=== PATIENT | female | born 1945 | race Caucasian/White ===

== ENCOUNTER 2016-12-12 10:48 | Outpatient (CLI) | payer MEDICARE, OTHER ==
[~2016-12-12] VITALS: Ht 162.6 cm; Wt 63.5 kg
[~2016-12-12 10:48] MED LIST: CALC-656 PO; CALC-9 PO; CEPH500T PO; CIPR500T78 PO; CYCL10TA9 PO; HYDR-34 PO; Hydrocodone Bit/Acetaminophen PO; LETR2.5T5 PO; NAPR250T PO
--- OUTSIDE RECORDS SUMMARY | 2016-12-12 10:54 | XMS REPORT | Continuity of Care Document ---
Author Author [facility] Organization [facility] Address Unknown Phone Unavailable Care Team Providers Care Formulation Scientist Name Role Phone CHRISTY CEBALLOS MD PCP Insurance Providers Payer Name Policy Number Subscriber Name Relationship Wps Medicare [id number] Viridiana Singh 18 Self / Same As Patient Advance Directives Directive Response Recorded Date/Time Advance Directives No 01/15/14 10:10am Health Care Power of Credit Union Teller No 01/15/14 10:10am Organ Donor Yes 01/15/14 [...] Encounters Encounter Location Date/Time Discharged Recurring Via [facility] 09/29/14 12:32pm
[2016-12-12 11:09] VITALS: BP 147/83
[2016-12-12] MEDS ORDERED: DONE5TAB30 PO (11:14)
[2016-12-12] MEDS ORDERED: MELO7.5T46 PO (11:14)
[2016-12-12 12:06] LABS: BASOPHILS % (AUTO) 0 % (0-10); EOSINOPHILS # (AUTO) 0.1 10^3/uL (0.0-0.3); EOSINOPHILS % (AUTO) 1 % (0-10); LYMPHOCYTES # (AUTO) 1.9 X 10^3 (1.0-4.0); LYMPHOCYTES % (AUTO) 31 % (12-44); MEAN CORPUSCULAR HEMOGLOBIN 30 PG (25-34); MEAN CORPUSCULAR HGB CONC 34 G/DL (32-36); MEAN CORPUSCULAR VOLUME 89 FL (80-99); MEAN PLATELET VOLUME 10.5 FL (7.4-10.4); MONOCYTES # (AUTO) 0.7 X 10^3 (0.0-1.0); MONOCYTES % (AUTO) 11 % (0-12); NEUTROPHILS # (AUTO) 3.4 X 10^3 (1.8-7.8); NEUTROPHILS % (AUTO) 56 % (42-75); PLATELET COUNT 243 10^3/uL (130-400); RED BLOOD COUNT 4.58 10^6/uL (4.35-5.85); RED CELL DISTRIBUTION WIDTH 13.3 % (10.0-14.5); WHITE BLOOD COUNT 6.1 10^3/uL (4.3-11.0)
[2016-12-12 12:18] LABS: ANION GAP 11 MMOL/L (5-14); BLOOD UREA NITROGEN 11 MG/DL (7-18); BUN/CREATININE RATIO 13; CARBON DIOXIDE 23 MMOL/L (21-32); CHLORIDE 107 MMOL/L (98-107); CREATININE SERUM 0.83 MG/DL (0.60-1.30); GFR ESTIMATED > 60; GLUCOSE 106 MG/DL (70-105); POTASSIUM 3.7 MMOL/L (3.6-5.0); SODIUM 141 MMOL/L (135-145)
--- NOTE | 2016-12-12 12:21 | Diagnostic Imaging Report ---
EXAMINATION: PA and lateral views of the chest. INDICATION: Preoperative evaluation. FINDINGS: The lungs are hyperinflated but clear. The heart size is normal. No effusion or pneumothorax. The mediastinum and yovanny appear unremarkable. Surgical clips in the upper right abdomen seen. There is a mid thoracic spine compression fracture which appears old. IMPRESSION: Hyperinflated clear lungs. Dictated by: Dictated on workstation # [id number]
== END 2016-12-12 11:40 | disposition home or self-care (01) ==
LOC: PREOP 10:48
PROVIDERS: ATTEND Otolaryngology Otolaryngology/Facial Plastic Surgery
DX: Z01.818 Encounter for other preprocedural examination (principal); Z01.812 Encounter for preprocedural laboratory examination; Z11.2 Encounter for screening for other bacterial diseases; E04.1 Nontoxic single thyroid nodule
CPT/HCPCS: 36415; 71020; 80048; 85025; 87081; 93005

== ENCOUNTER 2016-12-15 06:21 | Day surgery (SDC) | payer MEDICARE, OTHER ==
[~2016-12-15] VITALS: Ht 162.6 cm; Wt 63.5 kg
[~2016-12-15 06:21] MED LIST changes: +DONE5TAB30 PO; +MELO7.5T46 PO
--- OUTSIDE RECORDS SUMMARY | 2016-12-15 06:24 | XMS REPORT | Continuity of Care Document ---
Author Author [facility] Organization [facility] Address Unknown Phone Unavailable Care Team Providers Care Hoop Cutter Name Role Phone CHRISTY CEBALLOS MD PCP Insurance Providers Payer Name Policy Number Subscriber Name Relationship Wps Medicare [id number] Viridiana Singh 18 Self / Same As Patient Advance Directives Directive Response Recorded Date/Time Advance Directives No 01/15/14 10:10am Health Care Power of Tableau Administrator No 01/15/14 10:10am Organ Donor Yes 01/15/14 [...] Encounters Encounter Location Date/Time Discharged Recurring [facility] 09/29/14 12:32pm
--- OUTSIDE RECORDS SUMMARY | 2016-12-15 06:24 | XMS REPORT | Continuity of Care Document ---
Author Author [facility] Organization [facility] Address Unknown Phone Unavailable Care Team Providers Care Equipment Service Lead Name Role Phone CHRISTY CEBALLOS MD PCP Insurance Providers Payer Name Policy Number Subscriber Name Relationship Wps Medicare [id number] Viridiana Singh 18 Self / Same As Patient Advance Directives Directive Response Recorded Date/Time Advance Directives No 01/15/14 10:10am Health Care Power of [place] B[place] No 01/15/14 10:10am Organ Donor Yes 01/15/14 [...] Encounters Encounter Location Date/Time Discharged Recurring Via [facility] 09/29/14 12:32pm
[2016-12-15] MEDS ORDERED: CALC-140 PO (06:50)
[2016-12-15] MEDS ORDERED: LIDOCAINE PF 2% 10 ML (XYLOCAINE) AMP ONE (06:53)
[2016-12-15] MEDS ORDERED: fentaNYL INJECTION 100 MCG/2 ML AMP ONE ×2 (06:53→09:49)
[2016-12-15] MEDS ORDERED: LACTATED RINGERS 1,000 ML IV ONE ×2 (06:53→08:48)
[2016-12-15] MEDS ORDERED: LIDOCAINE JELLY 2% (XYLOCAINE) 5 ML TUBE ONE (06:53)
[2016-12-15] MEDS ORDERED: ONDANSETRON 4 MG/2 ML (SDV) Z0FRAN ONE (06:53)
[2016-12-15] MEDS ORDERED: proPOfol 200 MG/20 ML (DIPRIVAN) VIAL IV ONE (06:53)
[2016-12-15] MEDS ORDERED: ROCURONIUM 50 MG/5 ML (ZEMURON) VIAL IV ONE (06:53)
--- NOTE | 2016-12-15 06:53 | Progress Note-Pre Operative ---
Pre-Operative Progress Note H&P Reviewed The H&P was reviewed, patient examined and no changes noted. Date H&P Reviewed: Dec 15, 2016 Time H&P Reviewed: 06:45 Pre-Operative Diagnosis: Multinodular Goiter LORETTA BOOKER MD Dec 15, 2016 6:53 am
[2016-12-15] MEDS ORDERED: MIDAZOLAM 2 MG/2 ML (VERSED) VIAL ONE (06:54)
[2016-12-15] MEDS ORDERED: LIDOCAINE/EPI 1%-1:100,000 (XYLOCAINE) 20ML ONE (06:55)
[2016-12-15] MEDS ORDERED: MUPIROCIN 2% OINT 22 GM (BACTROBAN) TUBE ONE (06:55)
[2016-12-15 07:01] VITALS: BP 138/91
[2016-12-15] MEDS: LACTATED RINGERS 1,000 ML IV PRN ×2 (07:14→08:37)
[2016-12-15] MEDS ORDERED: ISOFLURANE (FORANE) 15 ML/15 MIN INHALATION ONE ×3 (07:35→09:54)
--- NOTE | 2016-12-15 09:46 | Progress Note-Post Operative ---
Post-Operative Progess Note Pre-Operative Diagnosis MULTINODULAR GOITER Post-Operative Diagnosis same Post-Op Procedure Note Date of Procedure: Dec 15, 2016 Name of Procedure: Total Thyroidectomy Anesthesia Type get Estimated blood loss (mL): 25cc Packin number 7 SARI DRain Specimen(s) collected Thyroid gland LORETTA BOOKER MD Dec 15, 2016 9:46 am
[2016-12-15] MEDS ORDERED: HYDROmorphone (DILAUDID) 2 MG/ML VIAL ONE (09:49)
[2016-12-15] MEDS ORDERED: ACETAMINOPHEN 500 MG TAB (TYLENOL) PO PRN (10:00)
[2016-12-15] MEDS ORDERED: MEPERIDINE (DEMEROL) INJ 50 MG/ML IM PRN (10:00)
[2016-12-15] MEDS ORDERED: MEPERIDINE (DEMEROL) INJ 50 MG/ML IVP PRN (10:00)
[2016-12-15] MEDS ORDERED: ONDANSETRON 4 MG/2 ML (SDV) Z0FRAN IVP PRN (10:00)
[2016-12-15] MEDS: fentaNYL INJECTION 100 MCG/2 ML AMP IVP PRN ×2 (10:50→11:00)
[2016-12-15 11:40] VITALS: BP 151/85
[2016-12-15] MEDS: ONDANSETRON 4 MG/2 ML (SDV) Z0FRAN IV PRN (13:07)
[2016-12-15] MEDS: D5 1/2 NS W/KCL 20 MEQ/L 1,000 ML IV SCH (13:08)
[2016-12-15] MEDS: HYDROcodone/APAP 5 MG/325 MG (LORTAB) TAB PO PRN ×2 (13:08→20:50)
[2016-12-15 16:00] VITALS: BP 132/90
--- NOTE | 2016-12-15 16:54 | Progress Note-Standard ---
Standard Progress Note Progress Notes/Assess & Plan Progress/Assessment & Plan ENT-Kermit Doing well INitially had 125cc out drain in RR since that time has had only 20 MInimal pain-Incision dry intact and flat. tj diet voice normal ca-8.5 pverall doing very well post total thyroiectomy plan on home tomorrow as long as driange stay low and calcium r emains stable Final Diagnosis multipnodular goiter LORETTA BOOKER MD Dec 15, 2016 4:54 pm
[2016-12-15 20:00] VITALS: BP 119/67
[2016-12-16 00:44] VITALS: BP 114/60
[2016-12-16] MEDS: D5 1/2 NS W/KCL 20 MEQ/L 1,000 ML IV SCH (02:30)
[2016-12-16 03:47] VITALS: BP 111/68
[2016-12-16] MEDS: HYDROcodone/APAP 5 MG/325 MG (LORTAB) TAB PO PRN (03:47)
[2016-12-16] MEDS ORDERED: LEVOTHYROXINE 88 MCG (LEVOTHORID) TAB PO SCH (06:30)
--- NOTE | 2016-12-16 06:51 | Progress Note-Standard ---
Standard Progress Note Progress Notes/Assess & Plan Progress/Assessment & Plan ENT-Kermit Doing well INitially had 125cc out drain in RR since that time has had only 20 MInimal pain-Incision dry intact and flat. tj diet voice normal ca-8.5 pverall doing very well post total thyroiectomy plan on home tomorrow as long as driange stay low and calcium r emains stable ENT-Kermit-12/16 Doing well MInimal drainage from drain-drain d/c'ed Incision flat and intact cAlcium-8.2 Will discharge on levothryoixine Will call with final path report-rtc 1 week for suture removal LORETTA BOOKER MD Dec 16, 2016 6:51 am
[2016-12-16] MEDS: ONDANSETRON 4 MG/2 ML (SDV) Z0FRAN IV PRN (07:29)
[2016-12-16 08:00] VITALS: BP 127/70
[2016-12-16] MEDS ORDERED: CALCIUM CARB + VIT D 600 MG (CALCARB + D) TAB PO SCH (08:00)
[2016-12-16] MEDS ORDERED: HYDR-3812 PO (08:37)
[2016-12-16] MEDS ORDERED: LEVO88TA54 PO (08:37)
[2016-12-16] MEDS ORDERED: DONEPEZIL 5 MG (ARICEPT) TAB PO SCH (09:00)
[2016-12-16] MEDS ORDERED: NON-FORMULARY MEDICATION 1 EA EA (Calcium Carbonate/Vitamin D3 (Calcium + Vitamin D Tablet PO SCH (09:00)
[2016-12-16] MEDS ORDERED: LETROZOLE 2.5 MG (FEMARA) TAB PO SCH (09:00)
[2016-12-16] MEDS ORDERED: FLU TRIvalent (5 YOA+) 2016-17 (AFLURIA) 0.5 ML IM ONE ×2 (10:30→11:15)
== END 2016-12-16 10:55 | disposition home or self-care (01) ==
LOC: SDC 06:21 → 4TH 12:10 → SDC 12-16 10:55
PROVIDERS: ATTEND Otolaryngology Otolaryngology/Facial Plastic Surgery
DX: E04.2 Nontoxic multinodular goiter (principal)
CPT/HCPCS: 36415; 82310; 88307

== ENCOUNTER 2016-12-22 12:47 | Outpatient (RCR) | payer MEDICARE, OTHER ==
--- OUTSIDE RECORDS SUMMARY | 2016-10-06 14:46 | XMS REPORT | Continuity of Care Document ---
Author Author [facility] Organization [facility] Address Unknown Phone Unavailable Care Team Providers Care Jewel Sawyer Name Role Phone CHRISTY CEBALLOS MD PCP Insurance Providers Payer Name Policy Number Subscriber Name Relationship Wps Medicare [id number] Viridiana Singh 18 Self / Same As Patient Advance Directives Directive Response Recorded Date/Time Advance Directives No 01/15/14 10:10am Health Care Power of Airport Attendant No 01/15/14 10:10am Organ Donor Yes 01/15/14 10:10am Problems Medical Problems Problem Onset Date Status Abdominal pain Unknown Active Urinary tract infectious disease Unknown Active Medications Medication Dose Route Sig Days/Qty Instructions Order Date Discontinued Date Status Cyclobenzaprine HCl (Flexeril) 1 Each PO Q8HR PRN 20 Qty 03/12/1013/08 Discontinued Acetaminophen/Hydrocodone Bitart 1 Ea PO Q 4 - 6 HR PRN 14 Qty 05/13/10 Discontinued Letrozole 2.5 Mg PO BEDTIME 11/21/13 Active Calcium Carbonate/Vitamin D3 1 Each PO 11/21/13 11/28/13 Discontinued Naproxen 250 Mg PO 11/21/13 11/28/13 Discontinued Ciprofloxacin HCl 500 Mg PO TWICE A DAY 14 Qty 11/22/13 11/28/13 Discontinued Calcium Carbonate/Vitamin D3 1 Tab PO TWICE A DAY 01/15/14 Active [Hydrocodone Bit/Acetaminophen] 1 Tab PO GIVE EVERY 4 HRS ON SCHEDULE PRN PAIN 60 Qty 01/23/14 Active Social History Social History Problem Response Recorded Date/Time Alcohol Use Denies Use 01/20/2014 6:59am Recreational Drug Use No 01/20/2014 6:59am Recent Foreign Travel No 01/20/2014 6:59am Recent Infectious Disease Exposure No 01/20/2014 6:59am Hospitalization with Isolation Denies 01/23/2014 2:16pm Sexually Transmitted Disease No 01/20/2014 6:59am Hospital Discharge Instructions No hospital discharge instructions. Plan of Care No plan of care. Functional Status No functional status results. Allergies, Adverse Reactions, Alerts Allergen Type Severity Reaction Status Last Updated morphine Adverse Reaction Unknown HALLUCINATIONS Active 01/17/14 Immunizations Name Given Type Tetanus Booster (TDap) Unknown Historical Vital Signs No known vital signs results. Results Laboratory Results Test Name Result Units Flags Reference Collection Date/Time Result Date/ Time Comments White Blood Count 4.9 10^3/uL 4.3-11.0 09/29/2014 12:58pm 09/29/2014 1: 07pm Red Blood Count 4.34 10^6/uL L 4.35-5.85 09/29/2014 12:58pm 09/29/2014 1: 07pm Hemoglobin 13.4 G/DL 11.5-16.0 09/29/2014 12:58pm 09/29/2014 1:07pm Hematocrit 39 % 35-52 09/29/2014 12:58pm 09/29/2014 1:07pm Mean Corpuscular Volume 91 FL 80-99 09/29/2014 12:58pm 09/29/2014 1: 07pm Mean Corpuscular Hemoglobin 31 PG 25-34 09/29/2014 12:58pm 09/29/2014 1 :07pm Mean Corpuscular Hemoglobin Concent 34 G/DL 32-36 09/29/2014 12:58pm 1:07pm Red Cell Distribution Width 12.6 % 10.0-14.5 09/29/2014 12:58pm 2013 1:07pm Platelet Count 283 10^3/uL 130-400 09/29/2014 12:58pm 09/29/2014 1: 07pm Mean Platelet Volume 9.5 FL 7.4-10.4 09/29/2014 12:58pm 09/29/2014 1: 07pm Neutrophils (%) (Auto) 56 % 42-75 09/29/2014 12:58pm 09/29/2014 1:07pm Lymphocytes (%) (Auto) 32 % 12-44 09/29/2014 12:58pm 09/29/2014 1:07pm Monocytes (%) (Auto) 10 % 0-12 09/29/2014 12:58pm 09/29/2014 1:07pm Eosinophils (%) (Auto) 2 % 0-10 09/29/2014 12:58pm 09/29/2014 1:07pm Basophils (%) (Auto) 0 % 0-10 09/29/2014 12:58pm 09/29/2014 1:07pm Neutrophils # (Auto) 2.8 X 10^3 1.8-7.8 09/29/2014 12:58pm 09/29/2014 1 :07pm Lymphocytes # (Auto) 1.6 X 10^3 1.0-4.0 09/29/2014 12:58pm 09/29/2014 1 :07pm Monocytes # (Auto) 0.5 X 10^3 0.0-1.0 09/29/2014 12:58pm 09/29/2014 1: 07pm Eosinophils # (Auto) 0.1 10^3/uL 0.0-0.3 09/29/2014 12:58pm 09/29/2014 1:07pm Basophils # (Auto) 0.0 10^3/uL 0.0-0.1 09/29/2014 12:58pm 09/29/2014 1: 07pm Sodium Level 140 MMOL/L 135-145 09/29/2014 12:58pm 09/29/2014 1:39pm Potassium Level 4.0 MMOL/L 3.6-5.0 09/29/2014 12:58pm 09/29/2014 1: 39pm Chloride Level 106 MMOL/L 98-107 09/29/2014 12:58pm 09/29/2014 1:39pm Carbon Dioxide Level 24 MMOL/L 21-32 09/29/2014 12:58pm 09/29/2014 1: 39pm Blood Urea Nitrogen 11 MG/DL 7-18 09/29/2014 12:58pm 09/29/2014 1:39pm Creatinine 0.72 MG/DL 0.60-1.30 09/29/2014 12:58pm 09/29/2014 1:39pm BUN/Creatinine Ratio 15 09/29/2014 12:58pm 09/29/2014 1:39pm Estimat Glomerular Filtration Rate > 60 09/29/2014 12:58pm 2013 1:39pm GFR INTERPRETIVE DATA UNITS FOR ESTIMATED GFR (eGFR): mL/min/1.73 M2 REFERENCE RANGE FOR ESTIMATED GFR (eGFR) eGFR NORMAL eGFR >60 MODERATELY DECREASED eGFR 30-59 SEVERLY DECREASED eGFR 15-29 KIDNEY FAILURE <15 (OR DIALYSIS) Glucose Level 119 MG/DL H 70-105 09/29/2014 12:58pm 09/29/2014 1:39pm Calcium Level 9.1 MG/DL 8.5-10.1 09/29/2014 12:58pm 09/29/2014 1:39pm Total Bilirubin 0.3 MG/DL 0.1-1.0 09/29/2014 12:58pm 09/29/2014 1:39pm Alkaline Phosphatase 85 U/L 40-136 09/29/2014 12:58pm 09/29/2014 1: 39pm Aspartate Amino Transf (AST/SGOT) 18 U/L 5-34 09/29/2014 12:58pm 2013 1:39pm Alanine Aminotransferase (ALT/SGPT) 12 U/L 0-55 09/29/2014 12:58pm 1:39pm Lactate Dehydrogenase 158 U/L 125-220 09/29/2014 12:58pm 09/29/2014 1: 39pm Total Protein 7.4 G/DL 6.4-8.2 09/29/2014 12:58pm 09/29/2014 1:39pm Albumin 4.0 G/DL 3.2-4.5 09/29/2014 12:58pm 09/29/2014 1:39pm Procedures No known history of procedures. Encounters Encounter Location Date/Time Discharged Recurring Via [facility] 09/29/14 12:32pm
[2016-10-06 15:04] LABS: BASOPHILS % (AUTO) 0 % (0-10); EOSINOPHILS # (AUTO) 0.1 10^3/uL (0.0-0.3); EOSINOPHILS % (AUTO) 2 % (0-10); LYMPHOCYTES # (AUTO) 2.7 X 10^3 (1.0-4.0); LYMPHOCYTES % (AUTO) 40 % (12-44); MEAN CORPUSCULAR HEMOGLOBIN 30 PG (25-34); MEAN CORPUSCULAR HGB CONC 34 G/DL (32-36); MEAN CORPUSCULAR VOLUME 90 FL (80-99); MEAN PLATELET VOLUME 10.4 FL (7.4-10.4); MONOCYTES # (AUTO) 0.7 X 10^3 (0.0-1.0); MONOCYTES % (AUTO) 11 % (0-12); NEUTROPHILS # (AUTO) 3.3 X 10^3 (1.8-7.8); NEUTROPHILS % (AUTO) 48 % (42-75); PLATELET COUNT 215 10^3/uL (130-400); RED BLOOD COUNT 4.76 10^6/uL (4.35-5.85); RED CELL DISTRIBUTION WIDTH 13.3 % (10.0-14.5); WHITE BLOOD COUNT 6.9 10^3/uL (4.3-11.0)
[2016-10-06 15:24] LABS: ALANINE AMINOTRANSFERASE 21 U/L (0-55); ANION GAP 7 MMOL/L (5-14); ASPARTATE AMINO TRANSFERASE 25 U/L (5-34); BILIRUBIN,TOTAL 0.4 MG/DL (0.1-1.0); BLOOD UREA NITROGEN 10 MG/DL (7-18); BUN/CREATININE RATIO 13; CALCIUM 8.9 MG/DL (8.5-10.1); CARBON DIOXIDE 27 MMOL/L (21-32); CHLORIDE 107 MMOL/L (98-107); GFR ESTIMATED > 60; GLUCOSE 84 MG/DL (70-105); SODIUM 141 MMOL/L (135-145)
[~2016-12-22 12:47] MED LIST changes: +CALC-140 PO; +HYDR-3812 PO; +LEVO88TA54 PO
[2016-12-22 13:13] LABS: BASOPHILS % (AUTO) 0 % (0-10); EOSINOPHILS # (AUTO) 0.1 10^3/uL (0.0-0.3); EOSINOPHILS % (AUTO) 1 % (0-10); LYMPHOCYTES # (AUTO) 2.3 X 10^3 (1.0-4.0); LYMPHOCYTES % (AUTO) 27 % (12-44); MEAN CORPUSCULAR HEMOGLOBIN 30 PG (25-34); MEAN CORPUSCULAR HGB CONC 34 G/DL (32-36); MEAN CORPUSCULAR VOLUME 89 FL (80-99); MEAN PLATELET VOLUME 9.2 FL (7.4-10.4); MONOCYTES % (AUTO) 12 % (0-12); NEUTROPHILS % (AUTO) 59 % (42-75); PLATELET COUNT 306 10^3/uL (130-400); RED BLOOD COUNT 4.44 10^6/uL (4.35-5.85); RED CELL DISTRIBUTION WIDTH 13.5 % (10.0-14.5); WHITE BLOOD COUNT 8.4 10^3/uL (4.3-11.0)
[2016-12-22 14:05] LABS: ALANINE AMINOTRANSFERASE 18 U/L (0-55); ALBUMIN 3.8 G/DL (3.2-4.5); ANION GAP 10 MMOL/L (5-14); ASPARTATE AMINO TRANSFERASE 19 U/L (5-34); BILIRUBIN,TOTAL 0.4 MG/DL (0.1-1.0); BLOOD UREA NITROGEN 9 MG/DL (7-18); BUN/CREATININE RATIO 11; CALCIUM 8.6 MG/DL (8.5-10.1); CARBON DIOXIDE 26 MMOL/L (21-32); CHLORIDE 105 MMOL/L (98-107); CREATININE SERUM 0.84 MG/DL (0.60-1.30); GFR ESTIMATED > 60; GLUCOSE 84 MG/DL (70-105); POTASSIUM 3.9 MMOL/L (3.6-5.0); SODIUM 141 MMOL/L (135-145)
== END 2017-01-04 | disposition home or self-care (01) ==
LOC: ONC 12:47
PROVIDERS: ATTEND Internal Medicine Hematology & Oncology
DX: C50.212 Malignant neoplasm of upper-inner quadrant of left female breast (principal); E04.1 Nontoxic single thyroid nodule; M16.0 Bilateral primary osteoarthritis of hip; R41.3 Other amnesia; Z79.811 Long term (current) use of aromatase inhibitors; Z79.899 Other long term (current) drug therapy
CPT/HCPCS: 36415; 80053; 84439; 84443; 85025; 86300; 99213

== ENCOUNTER 2017-08-07 11:19 | Emergency (ER) | payer MEDICARE ==
[~2017-08-07] VITALS: Ht 162.6 cm; Wt 69.9 kg
--- NOTE | 2017-08-07 11:26 | ED GI ---
General Chief Complaint: Abdominal/GI Problems Stated Complaint: ABD PAIN Source of Information: Patient Exam Limitations: No Limitations History of Present Illness Time Seen By Provider: 11:24 Initial Comments To ER by daughter with c/o sudden onset nausea,vomiting, and syncope vs near syncope that began during a bath a home. pt has some dementia and daughter was helping her bathe. Pt states that her stomach hurts but when complains of no pain upon palpation of abdomen. WHen ask to clarify the pain she states she is referring to nausea. No diarrhea. She feels as though she could vomit currently. Timing/Duration: 1/2 Hour Radiation: No Radiation Associated Symptoms: Nausea/Vomiting Allergies and Home Medications Allergies Coded Allergies: morphine (Unverified Adverse Reaction, Unknown, HALLUCINATIONS, 01/17/14) Home Medications Calcium Carbonate/Vitamin D3 1 Each Tablet, 1 TAB PO DAILY, (Reported) Donepezil HCl 5 Mg Tablet, 5 MG PO DAILY, (Reported) Letrozole 2.5 Mg Tablet, 2.5 MG PO DAILY, (Reported) Levothyroxine Sodium 100 Mcg Tablet, (Reported) Meloxicam 7.5 Mg Tablet, (Reported) Review of Systems Constitutional: see HPI, No chills EENTM: No Symptoms Reported Respiratory: No Symptoms Reported Cardiovascular: No Symptoms Reported Gastrointestinal: See HPI, Denies Abdominal Pain, Nausea Genitourinary: No Symptoms Reported Musculoskeletal: no symptoms reported Skin: no symptoms reported Psychiatric/Neurological: No Symptoms Reported Endocrine: No Symptoms Reported Past Yrnwjcw-Nwsdob-Wlvgzf Hx Patient Social History Alcohol Use: Denies Use Recreational Drug Use: No Smoking Status: Never a Smoker Type Used: Cigarettes Former Smoker, Quit: Dec 12, 1980 Recent Foreign Travel: No Contact w/Someone Who Travel: No Recent Hopitalizations: No Immunizations Up To Date Tetanus Booster (TDap): Unknown Seasonal Allergies Seasonal Allergies: No Surgeries Surgeries: Bladder Surgery, Breast, Gallbladder, Hysterectomy, Joint Replacement Reproductive System Hx Reproductive Disorders: No Sexually Transmitted Disease: No INTERNATIONAL SPECIALIST History: Hysterectomy Musculoskeletal Musculoskeletal Disorders: Arthritis HEENT Loss of Vision: Denies Hearing Impairment: Denies Cancer Cancer: Breast Family Medical History Family Medial History: Family history: Arthritis 03 FATHER 03 MOTHER 09 BROTHER 09 SISTER No Family History of: Abdominal aortic aneurysm Alcoholism Cancer Family history: Alzheimer's disease Family history: Asthma Family history: Breast disease Family history: Cardiovascular disease Family history: Diabetes mellitus Family history: Gastrointestinal disease Family history: Hypertension Family history: Thyroid disorder Hereditary disease History of - respiratory disease Kidney disease Myocardial infarction Parkinson's disease Prostate cancer Psychotic disorder Seizure disorder Stroke Physical Exam Vital Signs VS - Last 72 Hours, by Label 08/07/17 08/07/17 08/07/17 11:19 11:52 12:38 Temp 96.7 Pulse 77 62 62 Resp 18 18 18 B/P (MAP) 103/71 130/81 Pulse Ox 94 97 95 O2 Delivery Room Air Room Air Room Air Capillary Refill : General Appearance: WD/WN, no apparent distress HEENT: PERRL/EOMI, normal ENT inspection Neck: non-tender, full range of motion Respiratory: normal breath sounds, no respiratory distress, no accessory muscle use Cardiovascular: regular rate, rhythm, no murmur Gastrointestinal: normal bowel sounds, non tender, soft, No guarding, No rebound, No tenderness Extremities: normal range of motion, non-tender Neurologic/Psychiatric: alert, normal mood/affect, oriented x 3 Skin: normal color, warm/dry Progress/Results/Core Measures Results/Orders Lab Results Laboratory Tests Test 08/07/17 11:23 08/07/17 12:11 Range/Units White Blood Count 7.6 4.3-11.0 10^3/uL Red Blood Count 4.81 4.35-5.85 10^6/uL Hemoglobin 14.6 11.5-16.0 G/DL Hematocrit 44 35-52 % Mean Corpuscular Volume 90 80-99 FL Mean Corpuscular Hemoglobin 30 25-34 PG Mean Corpuscular Hemoglobin Concent 34 32-36 G/DL Red Cell Distribution Width 13.1 10.0-14.5 % Platelet Count 270 130-400 10^3/uL Mean Platelet Volume 10.0 7.4-10.4 FL Neutrophils (%) (Auto) 56 42-75 % Lymphocytes (%) (Auto) 33 12-44 % Monocytes (%) (Auto) 9 0-12 % Eosinophils (%) (Auto) 2 0-10 % Basophils (%) (Auto) 0 0-10 % Neutrophils # (Auto) 4.2 1.8-7.8 X 10^3 Lymphocytes # (Auto) 2.5 1.0-4.0 X 10^3 Monocytes # (Auto) 0.7 0.0-1.0 X 10^3 Eosinophils # (Auto) 0.1 0.0-0.3 10^3/uL Basophils # (Auto) 0.0 0.0-0.1 10^3/uL Sodium Level 142 135-145 MMOL/L Potassium Level 3.6 3.6-5.0 MMOL/L Chloride Level 108 H 98-107 MMOL/L Carbon Dioxide Level 26 21-32 MMOL/L Anion Gap 8 5-14 MMOL/L Blood Urea Nitrogen 10 7-18 MG/DL Creatinine 1.01 0.60-1.30 MG/DL Estimat Glomerular Filtration Rate 54 BUN/Creatinine Ratio 10 Glucose Level 96 70-105 MG/DL Calcium Level 9.2 8.5-10.1 MG/DL Total Bilirubin 0.5 0.1-1.0 MG/DL Aspartate Amino Transf (AST/SGOT) 22 5-34 U/L Alanine Aminotransferase (ALT/SGPT) 20 0-55 U/L Alkaline Phosphatase 77 40-136 U/L Troponin I < 0.30 <0.30 NG/ML Total Protein 8.1 6.4-8.2 GM/DL Albumin 4.2 3.2-4.5 GM/DL Lipase 29 8-78 U/L Urine Color YELLOW Urine Clarity CLEAR Urine pH 5 5-9 Urine Specific [place] 1.015 L 1.016-1.022 Urine Protein 1+ H NEGATIVE Urine Glucose (UA) NEGATIVE NEGATIVE Urine Ketones NEGATIVE NEGATIVE Urine Nitrite NEGATIVE NEGATIVE Urine Bilirubin NEGATIVE NEGATIVE Urine Urobilinogen NORMAL NORMAL MG/DL Urine Leukocyte Esterase NEGATIVE NEGATIVE Urine RBC (Auto) NEGATIVE NEGATIVE Urine RBC NONE /HPF Urine WBC NONE /HPF Urine Crystals NONE /LPF Urine Bacteria NEGATIVE /HPF Urine Casts PRESENT /LPF Urine Hyaline Casts >50 H /LPF Urine Mucus NEGATIVE /LPF Urine Culture Indicated NO My Orders Orders - DELL MARIANO APRN Saline Lock/Iv-Start (08/07/17 11:23) Lactated Ringers (Lr 1000 Ml Iv Solution (08/07/17 11:30) Ondansetron Injection (Zofran Injectio (08/07/17 11:30) Cbc With Automated Diff (08/07/17 11:23) Comprehensive Metabolic Panel (08/07/17 11:23) Lipase (08/07/17 11:23) Ua Culture If Indicated (08/07/17 11:23) Ekg Tracing (08/07/17 11:30) Troponin I (08/07/17 11:30) Medications Given in ED Current Medications Medications Dose Ordered Sig/Mimi Route Start Time Stop Time Status Last Admin Dose Admin Ondansetron HCl 8 mg ONCE ONCE IVP 08/07/17 11:30 08/07/17 11:31 DC 08/07/17 11:30 8 MG Vital Signs/I&O Vital Sign - Last 12Hours 08/07/17 08/07/17 08/07/17 11:19 11:52 12:38 Temp 96.7 Pulse 77 62 62 Resp 18 18 18 B/P (MAP) 103/71 130/81 Pulse Ox 94 97 95 O2 Delivery Room Air Room Air Room Air Intake and Output 08/08/17 00:00 Intake Total 1000 ml Balance 1000 ml Departure Communication (Admissions) Progress Notes 1309- Pt alert, vitals stable, denies nausea or abdominal pain. [facility]. Impression Impression: Primary Impression: Nausea and vomiting Disposition: 01 HOME, SELF-CARE Condition: Stable Departure-Patient Inst. Decision time for Depature: 13:10 Referrals: JULIO MELTON MD (PCP/Family) Primary Care Physician Patient Instructions: Nausea and Vomiting, Adult Add. Discharge Instructions: 1. Use the nausea medication as directed 2. REturn to ER for any recurrent episodes of passing out or any new or concerning symptoms 3. See Dr Melton this week for a recheck. All discharge instructions reviewed with patient and/or family. Voiced understanding. Scripts Ondansetron (Zofran Odt) 8 Mg Tab.rapdis 8 MG PO Q6H Y for NAUSEA/VOMITING-1ST LINE, #10 TAB Prov: DELL MARIANO APRN 08/07/17 Copy Copies To 1: JULIO MELTON MD, PETER J APRN Aug 07, 2017 11:26
[2017-08-07] MEDS ORDERED: LEVO100T7 (11:29)
[2017-08-07] MEDS ORDERED: MELO7.5T46 (11:29)
[2017-08-07 11:30] LABS: BASOPHILS % (AUTO) 0 % (0-10); EOSINOPHILS # (AUTO) 0.1 10^3/uL (0.0-0.3); EOSINOPHILS % (AUTO) 2 % (0-10); LYMPHOCYTES # (AUTO) 2.5 X 10^3 (1.0-4.0); LYMPHOCYTES % (AUTO) 33 % (12-44); MEAN CORPUSCULAR HEMOGLOBIN 30 PG (25-34); MEAN CORPUSCULAR HGB CONC 34 G/DL (32-36); MEAN CORPUSCULAR VOLUME 90 FL (80-99); MONOCYTES # (AUTO) 0.7 X 10^3 (0.0-1.0); MONOCYTES % (AUTO) 9 % (0-12); NEUTROPHILS # (AUTO) 4.2 X 10^3 (1.8-7.8); NEUTROPHILS % (AUTO) 56 % (42-75); PLATELET COUNT 270 10^3/uL (130-400); RED BLOOD COUNT 4.81 10^6/uL (4.35-5.85); RED CELL DISTRIBUTION WIDTH 13.1 % (10.0-14.5); WHITE BLOOD COUNT 7.6 10^3/uL (4.3-11.0)
[2017-08-07] MEDS ORDERED: ONDANSETRON 4 MG/2 ML (SDV) Z0FRAN IVP ONE (11:30)
[2017-08-07] MEDS ORDERED: LACTATED RINGERS 1,000 ML IV SCH (11:30)
[2017-08-07 11:52] VITALS: BP 103/71
[2017-08-07 11:53] LABS: ALBUMIN 4.2 GM/DL (3.2-4.5); BILIRUBIN,TOTAL 0.5 MG/DL (0.1-1.0); CALCIUM 9.2 MG/DL (8.5-10.1); CREATININE SERUM 1.01 MG/DL (0.60-1.30); POTASSIUM 3.6 MMOL/L (3.6-5.0); TOTAL PROTEIN 8.1 GM/DL (6.4-8.2)
[2017-08-07 12:18] LABS: BILIRUBIN,URINE NEGATIVE (NEGATIVE); KETONES,URINE NEGATIVE (NEGATIVE); LEUKOCYTE ESTERASE ,URINE NEGATIVE (NEGATIVE); NITRITE,URINE NEGATIVE (NEGATIVE); PH,URINE 5 (5-9); PROTEIN,URINE 1+ (NEGATIVE); UROBILINOGEN,URINE NORMAL (NORMAL)
[2017-08-07 12:28] LABS: HYALINE CASTS, URINE >50 /LPF
[2017-08-07 12:38] VITALS: BP 130/81
[2017-08-07] MEDS ORDERED: ONDA8TAB9 PO (13:11)
[2017-08-07 13:13] VITALS: BP 117/71
== END 2017-08-07 13:13 | disposition home or self-care (01) ==
LOC: EDUNIT# 11:19 → ER 11:22
DX: R11.2 Nausea with vomiting, unspecified (principal); Z90.710 Acquired absence of both cervix and uterus; Z87.891 Personal history of nicotine dependence; Z85.3 Personal history of malignant neoplasm of breast
CPT/HCPCS: 36415; 51701; 80053; 81000; 83690; 84484; 85025; 93005; 96374

== ENCOUNTER 2017-11-29 16:09 | Emergency (ER) | payer MEDICARE ==
[~2017-11-29] VITALS: Ht 160 cm; Wt 56.7 kg
[~2017-11-29 16:09] MED LIST changes: +ACHD5005 PO; -HYDR-3812 PO; +LEVO100T7; +MELO7.5T46; +ONDA8TAB9 PO
[2017-11-29 16:24] VITALS: BP 171/109
[2017-11-29 16:48] LABS: BILIRUBIN,URINE NEGATIVE (NEGATIVE); CLARITY,URINE CLEAR; COLOR,URINE YELLOW; GLUCOSE, URINE (UA) NEGATIVE (NEGATIVE); KETONES,URINE NEGATIVE (NEGATIVE); LEUKOCYTE ESTERASE ,URINE 3+ (NEGATIVE); NITRITE,URINE NEGATIVE (NEGATIVE); PH,URINE 5 (5-9); PROTEIN,URINE 2+ (NEGATIVE); UROBILINOGEN,URINE NORMAL (NORMAL)
[2017-11-29 16:54] LABS: BACTERIA,URINE MODERATE /HPF; RBC,URINE 0-2 /HPF; WBC,URINE 50-100 /HPF
[2017-11-29] MEDS ORDERED: PHEN-640 PO (17:00)
[2017-11-29] MEDS ORDERED: SULF1TAB35 PO (17:00)
--- NOTE | 2017-11-29 17:00 | ED GU-Female ---
General Chief Complaint: -Female Stated Complaint: POSSIBLE UTI Nursing Triage Note: pt presents to ed with family member with complaints of increased confusion and burning with urination starting yesterday. Nursing Sepsis Screen: No Definite Risk Source: family (DAUGHTER--PT LIVES WITH HER) Exam Limitations: other (PT WITH DEMENTIA AND IS UNABLE TO GIVE ANY RELEVANT INFORMATION, OR ANSWER QUESTIONS) History of Present Illness Date Seen by Provider: Nov 29, 2017 Time Seen by Provider: 16:44 Initial Comments PT ARRIVES WITH DAUGHTER DAUGHTER STATES PT HAS HAD URINARY FREQUENCY AND PAIN ON URINATION TODAY HAS ALSO BEEN MORE CONFUSED THAN NORMAL AND HAS BEEN AGITATED NO FEVER NO NAUSEA/VOMITING HAS HISTORY OF SAME SEVERAL TIMES PCP: DR. JULIO MELTON Allergies and Home Medications Allergies Coded Allergies: morphine (Unverified Adverse Reaction, Unknown, HALLUCINATIONS, 01/17/14) Home Medications Calcium Carbonate/Vitamin D3 1 Each Tablet, 1 TAB PO DAILY, (Reported) Donepezil HCl 5 Mg Tablet, 5 MG PO DAILY, (Reported) Letrozole 2.5 Mg Tablet, 2.5 MG PO DAILY, (Reported) Levothyroxine Sodium 100 Mcg Tablet, (Reported) Meloxicam 7.5 Mg Tablet, (Reported) Ondansetron 8 Mg Tab.rapdis, 8 MG PO Q6H PRN for NAUSEA/VOMITING-1ST LINE, #10 Prescribed by: DELL MARIANO on 08/07/17 1311 Phenazopyridine HCl 200 Mg Tablet, 1 TAB PO TID, #15 Prescribed by: DARRYL DSOUZA on 11/29/17 1700 Sulfamethoxazole/Trimethoprim 1 Each Tablet, 1 EACH PO BID, #20 Prescribed by: DARRYL DSOUZA on 11/29/17 1700 Constitutional: no symptoms reported Respiratory: no symptoms reported Cardiovascular: no symptoms reported Gastrointestinal: no symptoms reported Genitourinary: see HPI, burning, frequency Musculoskeletal: no symptoms reported Skin: no symptoms reported Psychiatric/Neurological: See HPI Endocrine: No Symptoms Reported Hematologic/Lymphatic: No Symptoms Reported Past Lkzaoty-Zxwsie-Olllgi Hx Patient Social History Alcohol Use: Denies Use Recreational Drug Use: No Smoking Status: Former Smoker Type Used: Cigarettes Former Smoker, Quit: Dec 12, 1980 Recent Foreign Travel: No Contact w/Someone Who Travel: No Recent Infectious Disease Expo: No Recent Hopitalizations: No Physical Abuse: No Sexual Abuse: No Mistreated: No Immunizations Up To Date Tetanus Booster (TDap): Unknown Seasonal Allergies Seasonal Allergies: No Surgeries History of Surgeries: Yes Surgeries: Bladder Surgery, Breast, Gallbladder, Hysterectomy, Joint Replacement, Lumpectomy Respiratory History of Respiratory Disorde: No Cardiovascular History of Cardiac Disorders: Yes Cardiac Disorders: Hypertension Neurological History of Neurological Disord: Yes (sundowners) Neurological Disorders: Dementia Reproductive System Hx Reproductive Disorders: No Sexually Transmitted Disease: No 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 Genitourinary History of Genitourinary Disor: Yes Genitourinary Disorders: UTI-Chronic Gastrointestinal History of Gastrointestinal Di: No Musculoskeletal History of Musculoskeletal Dis: Yes Musculoskeletal Disorders: Arthritis Endocrine History of Endocrine Disorders: Yes (THYROID NODULES) HEENT Loss of Vision: Denies Hearing Impairment: Denies Cancer History of Cancer: Yes Cancer: Breast Psychosocial History of Psychiatric Problem: No Suicide Risk Score: 0 Integumentary History of Skin or Integumenta: No Blood Transfusions History of Blood Disorders: No Family Medical History Family Medial History: Family history: Arthritis 03 FATHER 03 MOTHER 09 BROTHER 09 SISTER No Family History of: Abdominal aortic aneurysm Alcoholism Cancer Family history: Alzheimer's disease Family history: Asthma Family history: Breast disease Family history: Cardiovascular disease Family history: Diabetes mellitus Family history: Gastrointestinal disease Family history: Hypertension Family history: Thyroid disorder Hereditary disease History of - respiratory disease Kidney disease Myocardial infarction Parkinson's disease Prostate cancer Psychotic disorder Seizure disorder Stroke Physical Exam Vital Signs Vital Signs - First Documented 11/29/17 16:24 Temp 98.2 Pulse 113 Resp 20 B/P (MAP) 171/109 (129) Pulse Ox 96 Capillary Refill : Less Than 3 Seconds General Appearance: WD/WN, no apparent distress Neck: normal inspection Cardiovascular: regular rate, rhythm, no murmur Respiratory: normal breath sounds, no respiratory distress, no accessory muscle use Gastrointestinal: normal bowel sounds, non tender, soft, no organomegaly Back: normal inspection, no CVA tenderness Extremities: normal range of motion, non-tender, normal inspection, no pedal edema, no calf tenderness, normal capillary refill Neurologic/Psychiatric: 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 ORIENTED TO PERSON, AND KNOWS SHE IS IN HOSPITAL, OTHERWISE CONFUSED TO TIME AND SITUATION AND VERY POOR MEMORY) Skin: normal color, warm/dry Progress/Results/Core Measures Suspected Sepsis Recent Fever Within 48 Hours: No Infection Criteria Present: Suspected New Infection New/Unexplained Altered Menta: Yes Sepsis Screen: No Definite Risk Sepsis Diagnosis: SIRS Temperature:98.2 Pulse: 113 Respiratory Rate: 20 Blood Pressure 171 /109 Mean: 129 Results/Orders Lab Results Laboratory Tests Test 11/29/17 16:23 Range/Units Urine Color YELLOW Urine Clarity CLEAR Urine pH 5 5-9 Urine Specific [place] 1.025 H 1.016-1.022 Urine Protein 2+ H NEGATIVE Urine Glucose (UA) NEGATIVE NEGATIVE Urine Ketones NEGATIVE NEGATIVE Urine Nitrite NEGATIVE NEGATIVE Urine Bilirubin NEGATIVE NEGATIVE Urine Urobilinogen NORMAL NORMAL MG/DL Urine Leukocyte Esterase 3+ H NEGATIVE Urine RBC (Auto) NEGATIVE NEGATIVE Urine RBC 0-2 /HPF Urine WBC 50-100 H /HPF Urine Crystals NONE /LPF Urine Bacteria MODERATE H /HPF Urine Casts NONE /LPF Urine Mucus NEGATIVE /LPF Urine Culture Indicated YES My Orders Orders - DARRYL DSOUZA DO Ua Culture If Indicated (11/29/17 16:43) Urine Culture (11/29/17 16:23) Vital Signs/I&O Vital Sign - Last 12Hours 11/29/17 16:24 Temp 98.2 Pulse 113 Resp 20 B/P (MAP) 171/109 (129) Pulse Ox 96 Capillary Refill : Less Than 3 Seconds Blood Pressure Mean: 129 Departure Impression Impression: Primary Impression: Urinary tract infection Disposition: 01 HOME, SELF-CARE Condition: Stable Departure-Patient Inst. Referrals: JULIO MELTON MD (PCP/Family) Primary Care Physician Patient Instructions: Urinary Tract Infection, Adult (DC) Add. Discharge Instructions: LOTS OF CLEAR LIQUIDS-NO COFFEE, POP OR TEA FOLLOW UP WITH YOUR DR IN 2-3 DAYS IF NO BETTER All discharge instructions reviewed with patient and/or family. Voiced understanding. Scripts Phenazopyridine HCl (Pyridium) 200 Mg Tablet 1 TAB PO TID for BLADDER DISCOMFORT, #15 TAB Prov: DARRYL DSOUZA DO 11/29/17 Sulfamethoxazole/Trimethoprim (Bactrim Ds Tablet) 1 Each Tablet 1 EACH PO BID, #20 TAB Prov: DARRYL DSOUZA DO 11/29/17 CARMELA DSOUZAA K Nov 29, 2017 17:00
== END 2017-11-29 17:06 | disposition home or self-care (01) ==
LOC: EDUNIT# 16:09 → ER 16:10
DX: N39.0 Urinary tract infection, site not specified (principal); I10 Essential (primary) hypertension; F03.90 Unspecified dementia, unspecified severity, without behavioral disturbance, psychotic disturbance, mood disturbance, and anxiety; Z85.3 Personal history of malignant neoplasm of breast; Z87.440 Personal history of urinary (tract) infections; Z87.891 Personal history of nicotine dependence; Z90.710 Acquired absence of both cervix and uterus; Z88.5 Allergy status to narcotic agent
CPT/HCPCS: 81000; 87088; 87186; 99282

== ENCOUNTER → 2019-05-13 | Outpatient (CLI) | payer MEDICARE ==
[~2019-05-13] MED LIST changes: +PHEN-640 PO; +SULF1TAB35 PO
--- NOTE | 2019-05-13 19:47 | Diagnostic Imaging Report ---
INDICATION: Routine screening. Comparison is made with prior mammograms from 09/20/2016 and 09/07/2015. 2-D and 3-D bilateral screening mammography was performed. The current study was also evaluated with a Computer Aided Detection (CAD) system. 3-D tomosynthesis was also performed and reviewed. FINDINGS: Scattered fibroglandular densities are identified bilaterally. Left MLO view does show some motion artifact. The patient reportedly does have some dementia. There are benign parenchymal and vascular calcifications. No mass or malignant-appearing microcalcifications are seen. The axillae are unremarkable. IMPRESSION: No mammographic features suspicious for malignancy are identified. ACR BI-RADS Category 2: Benign findings. Result letter will be mailed to the patient. Note: At least 10% of breast cancer is not imaged by mammography. Dictated by: Dictated on workstation # [id number]
== END ==
LOC: RAD 14:29
PROVIDERS: ATTEND Obstetrics & Gynecology
DX: Z12.31 Encounter for screening mammogram for malignant neoplasm of breast (principal); Z85.3 Personal history of malignant neoplasm of breast
CPT/HCPCS: 77067

== ENCOUNTER 2019-07-22 21:44 | Emergency (ER) | payer MEDICARE ==
[~2019-07-22] VITALS: Ht 165.1 cm; Wt 69.5 kg
[2019-07-22] MEDS ORDERED: NS IV 1000 ML 1,000 ML IV ONE ×2 (22:20→22:46)
[2019-07-22 22:27] LABS: BASOPHILS % (AUTO) 1 % (0-10); EOSINOPHILS # (AUTO) 0.2 10^3/uL (0.0-0.3); EOSINOPHILS % (AUTO) 3 % (0-10); HEMATOCRIT 39 % (35-52); HEMOGLOBIN 12.9 G/DL (11.5-16.0); LYMPHOCYTES # (AUTO) 2.1 X 10^3 (1.0-4.0); LYMPHOCYTES % (AUTO) 33 % (12-44); MEAN CORPUSCULAR HEMOGLOBIN 32 PG (25-34); MEAN CORPUSCULAR HGB CONC 34 G/DL (32-36); MEAN CORPUSCULAR VOLUME 94 FL (80-99); MEAN PLATELET VOLUME 10.4 FL (7.4-10.4); MONOCYTES # (AUTO) 0.5 X 10^3 (0.0-1.0); MONOCYTES % (AUTO) 8 % (0-12); NEUTROPHILS # (AUTO) 3.6 X 10^3 (1.8-7.8); NEUTROPHILS % (AUTO) 56 % (42-75); PLATELET COUNT 239 10^3/uL (130-400); RED CELL DISTRIBUTION WIDTH 13.8 % (10.0-14.5); WHITE BLOOD COUNT 6.5 10^3/uL (4.3-11.0)
[2019-07-22 22:32] LABS: INR 1.1 (0.8-1.4); PROTHROMBIN TIME PATIENT 14.3 SEC (12.2-14.7)
--- NOTE | 2019-07-22 22:40 | NUR ---
Assisted Dr Wood with vaginal exam at this time.
[2019-07-22 22:41] LABS: ALBUMIN 4.2 GM/DL (3.2-4.5); BILIRUBIN,TOTAL 0.4 MG/DL (0.1-1.0); CALCIUM 9.1 MG/DL (8.5-10.1); CREATININE SERUM 1.16 MG/DL (0.60-1.30); MAGNESIUM 1.9 MG/DL (1.6-2.4); TOTAL PROTEIN 7.9 GM/DL (6.4-8.2)
[2019-07-22 22:47] LABS: BILIRUBIN,URINE NEGATIVE (NEGATIVE); CLARITY,URINE VERY CLOUDY; COLOR,URINE YELLOW; GLUCOSE, URINE (UA) NEGATIVE (NEGATIVE); KETONES,URINE NEGATIVE (NEGATIVE); LEUKOCYTE ESTERASE ,URINE 3+ (NEGATIVE); NITRITE,URINE POSITIVE (NEGATIVE); PH,URINE 5 (5-9); PROTEIN,URINE 2+ (NEGATIVE); UROBILINOGEN,URINE NORMAL (NORMAL)
[2019-07-22 22:54] LABS: BACTERIA,URINE MODERATE /HPF; SQUAMOUS EPITHELIAL CELL,UR RARE /HPF; WBC,URINE 25-50 /HPF
--- NOTE | 2019-07-22 22:57 | ED General ---
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 PT LIVES WITH DAUGHTER AND THIS MORNING WHEN SHE CHANGED THE PATIENTS BRIEF SHE NOTICED SMALL BLOOD CLOTS, WHEN CLEANING NOTICED THEY WERE FROM THE VAGINA. TONIGHT SHE STATES THE BLOOD CLOTS ARE INCREASING. DAUGHTER STATES PT HAD DIARRHEA YESTERDAY. Nursing Sepsis Screen: No Definite Risk Source of Information: Family (DAUGHTER GIVES ALL INFORMATION, PT HAS DEMENTIA, AND CANNOT GIVE ANY INFORMATION) History of Present Illness Date Seen by Provider: Jul 22, 2019 Time Seen by Provider: 22:10 Initial Comments PT ARRIVES VIA POV FROM HOME WITH DAUGHTER, WHO IS HER CAREGIVER DAUGHTER STATES PT HAS HAD "VAGINAL BLEEDING" SINCE THIS AM DAUGHTER STATES THAT PT HAD "DIARRHEA ALL DAY" YESTERDAY--BETWEEN 10 AND 20 EPISODES. LAST BM WAS LAST EVENING. PT HAS LONGSTANDING INCONTINENCE OF BOWEL AND BLADDER, AND WEARS "DEPENDS" DAUGHTER STATES THAT WHEN SHE CHANGED HER DEPENDS, THIS MORNING THERE WAS ALOT OF BLOOD WITH CLOTS IN HER DEPENDS--THINKS IS FROM VAGINAL AREA, BUT NOT CERTAIN. STATES SHE "DIDN'T REALLY LOOK" AT THE AREA DAUGHTER STATES PT HAS HAD HYSTERECTOMY 10-15 YEARS AGO DAUGHTER IS NOT SURE HOW MUCH SHE HAS URINATED TODAY--STATES SHE NEVER DRINKS MUCH LIQUID, AND NEVER URINATES VERY MUCH. NO FEVER PT HAS NOT C/O ABDOMINAL PAIN. NO EXCESSIVE BLEEDING OR BRUISING FROM OTHER SITES DAUGHTER CALLED DR. ALSTON'S OFFICE THIS AFTERNOON, AND HE WILL SEE PT TOMORROW IN THE OFFICE, APPOINTMENT MADE PCP: DR. Eleonora MELTON Allergies and Home Medications Allergies Coded Allergies: morphine (Unverified Adverse Reaction, Unknown, HALLUCINATIONS, 01/17/14) Home Medications Calcium Carbonate/Vitamin D3 1 Each Tablet, 1 TAB PO DAILY, (Reported) Donepezil HCl 5 Mg Tablet, 5 MG PO DAILY, (Reported) Letrozole 2.5 Mg Tablet, 2.5 MG PO DAILY, (Reported) Nitrofurantoin Monohyd/M-Cryst 100 Mg Capsule, 100 MG PO BID Prescribed by: DARRYL DSOUZA on 07/22/19 2317 Ondansetron 8 Mg Tab.rapdis, 8 MG PO Q6H PRN for NAUSEA/VOMITING-1ST LINE Prescribed by: DELL MARIANO on 08/07/17 1311 Phenazopyridine HCl 200 Mg Tablet, 1 TAB PO TID Prescribed by: DARRYL DSOUZA on 11/29/17 170 Sulfamethoxazole/Trimethoprim 1 Each Tablet, 1 EACH PO BID Prescribed by: DARRYL DSOUZA on 11/29/17 170 Patient Home Medication List Home Medication List Reviewed: Yes Review of Systems Review of Systems Constitutional: no symptoms reported Respiratory: no symptoms reported Cardiovascular: no symptoms reported Gastrointestinal: see HPI; No abdominal pain, No constipation; diarrhea Genitourinary: see HPI Musculoskeletal: no symptoms reported Skin: no symptoms reported Psychiatric/Neurological: Pre-Existing Deficit (DEMENTIA) Hematologic/Lymphatic: See HPI Past Oppyxqw-Wmoybj-Whaxcy Hx Patient Social History Alcohol Use: Denies Use Recreational Drug Use: No Smoking Status: Former Smoker Type Used: Cigarettes Former Smoker, Quit: Dec 12, 1980 Recent Foreign Travel: No Contact w/Someone Who Travel: No Recent Infectious Disease Expo: No Recent Hopitalizations: No Physical Abuse: No Sexual Abuse: No Mistreated: No Fear: No Immunizations Up To Date Tetanus Booster (TDap): Unknown Seasonal Allergies Seasonal Allergies: No Past Medical History Surgeries: Yes (LEFT BREAST LUMPECTOMY AND SENTINEL NODE BIOPSY 2009; PORT PLACEMENT 2009; THYROIDECTOMY 12/2016; LEFT HIP REPLACEMENT 2013) Bladder Surgery, Breast, Gallbladder, Hysterectomy, Joint Replacement, Lumpectomy, Orthopedic Respiratory: No Cardiac: Yes Hypertension 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, 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 Sexually Transmitted Disease: No Genitourinary: Yes UTI-Chronic Gastrointestinal: No Musculoskeletal: Yes (LEFT HIP REPLACEMENT FOR ARTHRITIS 2013) Arthritis Endocrine: Yes (MULTINODULAR GOITER--S/P THYROIDECTOMY 12/2016) Loss of Vision: Denies Hearing Impairment: Denies Cancer: Yes (LEFT BREAST CANCER DX 2009--S/P LUMPECTOMY AND SENTINEL NODE BIOPSY) Breast Did You Recieve Any Treatments: Yes What Type of Treatment Did You: Surgical Intervention Psychosocial: No Integumentary: No Blood Disorders: No Family Medical History Family history: Arthritis 03 FATHER 03 MOTHER 09 BROTHER 09 SISTER No Family History of: Abdominal aortic aneurysm Alcoholism Cancer Family history: Alzheimer's disease Family history: Asthma Family history: Breast disease Family history: Cardiovascular disease Family history: Diabetes mellitus Family history: Gastrointestinal disease Family history: Hypertension Family history: Thyroid disorder Hereditary disease History of - respiratory disease Kidney disease Myocardial infarction Parkinson's disease Prostate cancer Psychotic disorder Seizure disorder Stroke Physical Exam Vital Signs Vital Signs - First Documented 07/22/19 07/23/19 21:50 01:18 Temp 36.0 Pulse 76 Resp 16 B/P (MAP) 157/113 (128) Pulse Ox 98 O2 Delivery Room Air Capillary Refill : Less Than 3 Seconds Height, Weight, BMI Height: 5'3.00" Weight: 145lbs. 0.0oz. 65.475378jp; 25.00 BMI Method:Stated General Appearance: No Apparent Distress, WD/WN, Other (SLEEPING SOUNDLY) Respiratory: Normal Breath Sounds, No Accessory Muscle Use, No Respiratory Distress Cardiovascular: Regular Rate, Rhythm, No Edema, No JVD, No Murmur Gastrointestinal: Non Tender, Soft Rectal: No Hemorrhoids; Other (NO OBVIOUS RECTAL MASSES. LIMITED EXAM DUE TO PT DISCOMFORT AND UNCOOPERATIVENESS. ) Genital/Rectal: Other (PT HAS LARGE > 2 CM DIAMETER, PERIURETHRAL MASS, COMPLETELY OBSCURING THE URETHRA--VERY IRREGULAR, EXTREMELY FRIABLE AND BLEEDING.. UNABLE TO COMPLETE VAGINAL SPECULUM EXAM DUE TO PT DISCOMFORT/UNCOOPERATIVENESS. ) Extremity: Normal Inspection Neurologic/Psychiatric: Alert, No Motor/Sensory Deficits, Other (PT ORIENTED TO PERSON, IS UNCLEAR IF SHE IS ORIENTED TO PLACE, BUT IS CONFUSED TO TIME AND SITUATION. SPEECH IS MOSTLY NON-SENSICAL. CAN FOLLOW SOME SIMPLE COMMANDS, AND ABLE TO ANSWER A FEW VERY SIMPLE YES/NO QUESTIONS) Progress/Results/Core Measures Suspected Sepsis Recent Fever Within 48 Hours: No Infection Criteria Present: Suspected New Infection New/Unexplained Altered Menta: No Sepsis Screen: No Definite Risk SIRS Temperature: Pulse: 76 Respiratory Rate: 16 Laboratory Tests 07/22/19 21:55: White Blood Count 6.5 Blood Pressure 157 /113 Mean: 128 Laboratory Tests 07/22/19 21:55: Creatinine 1.16, INR Comment 1.1, Platelet Count 239, Total Bilirubin 0.4 Results/Orders Lab Results Laboratory Tests Test 07/22/19 21:55 07/22/19 22:42 Range/Units White Blood Count 6.5 4.3-11.0 10^3/uL Red Blood Count 4.08 L 4.35-5.85 10^6/uL Hemoglobin 12.9 11.5-16.0 G/DL Hematocrit 39 35-52 % Mean Corpuscular Volume 94 80-99 FL Mean Corpuscular Hemoglobin 32 25-34 PG Mean Corpuscular Hemoglobin Concent 34 32-36 G/DL Red Cell Distribution Width 13.8 10.0-14.5 % Platelet Count 239 130-400 10^3/uL Mean Platelet Volume 10.4 7.4-10.4 FL Neutrophils (%) (Auto) 56 42-75 % Lymphocytes (%) (Auto) 33 12-44 % Monocytes (%) (Auto) 8 0-12 % Eosinophils (%) (Auto) 3 0-10 % Basophils (%) (Auto) 1 0-10 % Neutrophils # (Auto) 3.6 1.8-7.8 X 10^3 Lymphocytes # (Auto) 2.1 1.0-4.0 X 10^3 Monocytes # (Auto) 0.5 0.0-1.0 X 10^3 Eosinophils # (Auto) 0.2 0.0-0.3 10^3/uL Basophils # (Auto) 0.0 0.0-0.1 10^3/uL Prothrombin Time 14.3 12.2-14.7 SEC INR Comment 1.1 0.8-1.4 Activated Partial Thromboplast Time 37 H 24-35 SEC Sodium Level 143 135-145 MMOL/L Potassium Level 3.0 L 3.6-5.0 MMOL/L Chloride Level 104 98-107 MMOL/L Carbon Dioxide Level 26 21-32 MMOL/L Anion Gap 13 5-14 MMOL/L Blood Urea Nitrogen 13 7-18 MG/DL Creatinine 1.16 0.60-1.30 MG/DL Estimat Glomerular Filtration Rate 45 BUN/Creatinine Ratio 11 Glucose Level 121 H 70-105 MG/DL Calcium Level 9.1 8.5-10.1 MG/DL Corrected Calcium 8.9 8.5-10.1 MG/DL Magnesium Level 1.9 1.6-2.4 MG/DL Total Bilirubin 0.4 0.1-1.0 MG/DL Aspartate Amino Transf (AST/SGOT) 21 5-34 U/L Alanine Aminotransferase (ALT/SGPT) 15 0-55 U/L Alkaline Phosphatase 69 40-136 U/L Total Protein 7.9 6.4-8.2 GM/DL Albumin 4.2 3.2-4.5 GM/DL Amylase Level 58 25-125 U/L Lipase 23 8-78 U/L Urine Color YELLOW Urine Clarity VERY CLOUDY H Urine pH 5 5-9 Urine Specific [place] 1.025 H 1.016-1.022 Urine Protein 2+ H NEGATIVE Urine Glucose (UA) NEGATIVE NEGATIVE Urine Ketones NEGATIVE NEGATIVE Urine Nitrite POSITIVE H NEGATIVE Urine Bilirubin NEGATIVE NEGATIVE Urine Urobilinogen NORMAL NORMAL MG/DL Urine Leukocyte Esterase 3+ H NEGATIVE Urine RBC (Auto) 5+ H NEGATIVE Urine RBC 5-10 H /HPF Urine WBC 25-50 H /HPF Urine Squamous Epithelial Cells RARE /HPF Urine Crystals NONE /LPF Urine Bacteria MODERATE H /HPF Urine Casts NONE /LPF Urine Mucus SMALL H /LPF Urine Culture Indicated YES My Orders Orders - DARRYL DSOUZA DO Ed Iv/Invasive Line Start (07/22/19 22:20) Catheter(Urinary) Insert & Ass (07/22/19 22:20) Acute Abd Series (07/22/19 22:20) Amylase (07/22/19 22:20) Cbc With Automated Diff (07/22/19 22:20) Comprehensive Metabolic Panel (07/22/19 22:20) Lipase (07/22/19 22:20) Magnesium (07/22/19 22:20) Protime With Inr (07/22/19 22:20) Partial Thromboplastin Time (07/22/19 22:20) Ua Culture If Indicated (07/22/19 22:20) Ed Iv/Invasive Line Start (07/22/19 22:20) Ns Iv 1000 Ml (Sodium Chloride 0.9%) (07/22/19 22:20) Ct Abdomen/Pelvis W (07/22/19 22:44) Ed Iv/Invasive Line Start (07/22/19 22:46) Ns Iv 1000 Ml (Sodium Chloride 0.9%) (07/22/19 22:46) Urine Culture (07/22/19 22:42) Iohexol Injection (Omnipaque 350 Mg/Ml 1 (07/22/19 23:15) Ns (Ivpb) (Sodium Chloride 0.9% Ivpb Bag (07/22/19 23:15) Potassium Chloride (Tablet) (Klor Con Ta (07/22/19 23:15) Nitrofurantoin Capsule,Macro (Macrobid C (07/22/19 23:15) Nitrofurantoin Capsule,Macro (Macrobid C (07/22/19 23:30) Potassium Chloride (Tablet) (Racielor Cesar Ta (07/22/19 23:30) Medications Given in ED Current Medications Medications Dose Ordered Sig/Mimi Route Start Time Stop Time Status Last Admin Dose Admin Iohexol 75 ml ONCE ONCE IV 07/22/19 23:15 07/22/19 23:31 DC 07/22/19 23:29 75 ML Nitrofurantoin Macrocrystals 100 mg ONCE ONCE PO 07/22/19 23:15 07/22/19 23:31 DC 07/22/19 23:34 100 MG Potassium Chloride 40 meq ONCE ONCE PO 07/22/19 23:15 07/22/19 23:31 DC 07/22/19 23:35 40 MEQ Sodium Chloride 80 ml ONCE ONCE IV 07/22/19 23:15 07/22/19 23:31 DC 07/22/19 23:29 80 ML Sodium Chloride 1,000 ml @ 0 mls/hr Q0M ONCE IV 07/22/19 22:20 07/22/19 22:22 DC 07/22/19 22:50 0 MLS/HR Sodium Chloride 1,000 ml @ 0 mls/hr Q0M ONCE IV 07/22/19 22:46 07/22/19 22:47 DC 07/23/19 00:18 0 MLS/HR Vital Signs/I&O 07/22/19 07/23/19 21:50 01:18 Temp 36.0 36.0 Pulse 76 80 Resp 16 16 B/P (MAP) 157/113 (128) 143/91 (128) Pulse Ox 98 O2 Delivery Room Air Room Air Capillary Refill : Less Than 3 Seconds Blood Pressure Mean: 128 Progress Note : Progress Note MARKED DELAY IN OBTAINING CT RESULTS PT SLEPT FOR MOST OF ER STAY. Diagnostic Imaging Comments ABDOMEN XRAYS--NO ACUTE PROCESS, PENDING RADIOLOGIST REVIEW CT ABDOMEN/PELVIS--MILD SIGMOID COLITIS, MILD DIVERTICULAR DISEASE BUT NO ACUTE DIVERTICULITIS--PER [facility] VIA FAX AT 0107 Reviewed: Reviewed by Me Departure Impression Primary Impression: PERIURETHRAL MASS IN POST MENOPAUSAL FEMALE Additional Impressions: Hypokalemia Urinary tract infection Disposition: 01 HOME, SELF-CARE Condition: Stable Departure-Patient Inst. Referrals: REINALDO ALSTON MD, CHAD C MD (PCP/Family) Primary Care Physician Patient Instructions: Hypokalemia (DC), Urinary Tract Infection, Adult (DC) Add. Discharge Instructions: CHANGE PADS FREQUENTLY, KEEP AREA CLEAN POSSIBLE, BUT TRY TO AVOID DIRECTLY RUBBING/TOUCHING THE MASS, DUE TO BLEEDING--RINSE AREA WITH WARM WATER, GIVE SITZ BATHS KEEP YOUR APPOINTMENT WITH DR. ALSTON TOMORROW SCHEDULED FOLLOW UP WITH DR. MELTON FOR FOLLOW UP ON LOW POTASSIUM All discharge instructions reviewed with patient and/or family. Voiced understanding. Scripts Nitrofurantoin Monohyd/M-Cryst (Macrobid 100 mg Capsule) 100 Mg Capsule 100 MG PO BID, #20 CAP Prov: DARRYL DSOUZA DO 07/22/19 DARRYL DSOUZA DO Jul 22, 2019 22:57
[2019-07-22] MEDS ORDERED: KCL 10 MEQ TAB (MICRO K) PO ONE ×2 (23:15→23:30)
[2019-07-22] MEDS ORDERED: IOHEXOL 350 MG/ML 100 ML (OMNIPAQUE 350) VIAL IV ONE (23:15)
[2019-07-22] MEDS ORDERED: NITROFURANTOIN 100 MG (MACROBID) CAPSULE PO ONE ×2 (23:15→23:30)
[2019-07-22] MEDS ORDERED: NS 100 ML (IVPB) BAG IV ONE (23:15)
[2019-07-22] MEDS ORDERED: NITR-65 PO (23:17)
[2019-07-23 01:18] VITALS: BP 143/91
--- NOTE | 2019-07-23 06:26 | Diagnostic Imaging Report ---
INDICATION: Vaginal bleeding. COMPARISON: Radiographs of the chest dated 12/12/2016 TECHNIQUE: 3 radiographs of the abdomen and chest dated 07/22/2019. FINDINGS: The cardiac silhouette is borderline enlarged. No significant pulmonary vascular congestion. Low lung volumes, though the lungs appear clear given the low lung volumes. No pleural effusion. No pneumothorax. No acute osseous abnormality within the chest. Surgical clips within the right upper quadrant of the abdomen. Gas and stool is noted throughout the colon, including extending into the pelvis. No dilated loops of small bowel. No differential air-fluid levels. No free air. No suspicious calcifications overlying the renal shadows. Scattered osseous degenerative changes without acute osseous abnormality. Left total hip arthroplasty is partially visualized. IMPRESSION: Low lung volumes without acute cardiopulmonary abnormality. No acute abnormality identified within the abdomen with postsurgical and chronic findings as above. Dictated by: Dictated on workstation # [id number]
--- NOTE | 2019-07-23 07:05 | Diagnostic Imaging Report ---
PROCEDURE: CT abdomen and pelvis with contrast. TECHNIQUE: Multiple contiguous axial images were obtained through the abdomen and pelvis after administration of intravenous contrast. Auto Exposure Controls were utilized during the CT exam to meet ALARA standards for radiation dose reduction. INDICATION: Vaginal bleeding COMPARISON: 11/22/2013 FINDINGS: The visualized lung bases are clear. Diffusely decreased density of the liver, felt to relate to fatty infiltration of the liver. The liver is otherwise unremarkable. Cholecystectomy. The spleen is unremarkable. The adrenal glands are unremarkable. The pancreas is unremarkable. Small right renal cyst. Otherwise, bilateral kidneys and ureters are unremarkable. 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 No aneurysmal dilatation of the abdominal aorta. Tiny duodenal diverticulum arising from 4th portion of the duodenum. The urinary bladder is predominantly decompressed and not well evaluated secondary to spray artifact from a left total hip arthroplasty. The uterus is not visualized, likely surgically absent. No abnormal adnexal mass lesion. Mild colonic diverticulosis without CT evidence of acute diverticulitis. No bowel obstruction or pneumatosis. No significant adenopathy, free air, or free fluid within the abdomen or pelvis. Left total hip arthroplasty. Scattered osseous degenerative changes without acute osseous abnormality. Schmorl's node within the lower thoracic spine. IMPRESSION: Mild colonic diverticulosis without CT evidence of diverticulitis. 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 Fatty infiltration of the liver. Additional postsurgical and chronic findings as above. Agree with the preliminary interpretation. Dictated by: Dictated on workstation # [id number]
[2019-07-24] MEDS ORDERED: QUET50TA PO (12:41)
[2019-07-24] MEDS ORDERED: MELO7.5T46 PO (12:41)
[2019-07-24] MEDS ORDERED: LISI-552 PO (12:41)
[2019-07-24] MEDS ORDERED: LEVO100T7 PO (12:41)
[2019-07-26] MEDS ORDERED: PHEN-640 PO (11:13)
[2019-07-26] MEDS ORDERED: NEOM28.34 TP (11:13)
[2019-07-26] MEDS ORDERED: NITR-65 PO (11:13)
== END 2019-07-23 01:27 | disposition home or self-care (01) ==
LOC: EDUNIT# 21:44 → ER 21:45
DX: N36.8 Other specified disorders of urethra (principal); N39.0 Urinary tract infection, site not specified; E87.6 Hypokalemia; I10 Essential (primary) hypertension; F03.90 Unspecified dementia, unspecified severity, without behavioral disturbance, psychotic disturbance, mood disturbance, and anxiety; Z87.440 Personal history of urinary (tract) infections; Z96.642 Presence of left artificial hip joint; Z85.3 Personal history of malignant neoplasm of breast; Z88.5 Allergy status to narcotic agent; Z87.891 Personal history of nicotine dependence; Z90.710 Acquired absence of both cervix and uterus
CPT/HCPCS: 36415; 74022; 74177; 80053; 81000; 82150; 83690; 83735; 85025; 85610; 85730; 87077; 87088; 87186

== ENCOUNTER 2019-07-24 05:40 | Outpatient (CLI) | payer MEDICARE ==
[~2019-07-24] VITALS: Ht 165 cm; Wt 77.5 kg
[~2019-07-24 05:40] MED LIST changes: +NITR-65 PO
[2019-07-24] MEDS ORDERED: QUET50TA PO (12:41)
[2019-07-24] MEDS ORDERED: MELO7.5T46 PO (12:41)
[2019-07-24] MEDS ORDERED: LISI-552 PO (12:41)
[2019-07-24] MEDS ORDERED: LEVO100T7 PO (12:41)
[2019-07-26] MEDS ORDERED: NITR-65 PO (11:13)
[2019-07-26] MEDS ORDERED: PHEN-640 PO (11:13)
[2019-07-26] MEDS ORDERED: NEOM28.34 TP (11:13)
== END 2019-07-24 12:57 | disposition home or self-care (01) ==
LOC: PREOP 05:40
PROVIDERS: ATTEND Urology
DX: Z01.818 Encounter for other preprocedural examination (principal)

== ENCOUNTER 2019-09-30 10:19 | Inpatient (IN) | payer MEDICARE ==
[~2019-09-30] VITALS: Ht 165 cm; Wt 68.1 kg
[~2019-09-30 10:19] MED LIST changes: +LEVO100T7 PO; +LISI-552 PO; +NEOM28.34 TP; +QUET50TA PO
--- NOTE | 2019-09-30 11:13 | ED Fall/Injury ---
General Chief Complaint: Trauma-Non Activation Stated Complaint: FALL Nursing Triage Note: ARRIVED VIA EMS FROM HOME AFTER FALLING IN THE SHOWER. PT HAS A HX OF DEMENTIA AND DAUGHTER WAS HELPING HER WITH HER BATH. DAUGHTER STATES SHE HIT HER HEAD AND BACK. UNKNOWN LOC. PT ARRIVED IN A C-COLLAR. Source: patient, family Exam Limitations: clinical condition (dementia limited clinical exam ) (ANDRE KAYE,MED STUDENT) History of Present Illness Date Seen by Provider: Sep 30, 2019 Time Seen by Provider: 10:29 Initial Comments Pt presents to ED after traumatic fall that occurred at approximately 0940 this morning. Daughter in room explains pt has dementia and is not able to accurately answer questions. Daughter explains she was assisting pt shower and as pt was stepping out she fell backwards, striking her head, back and landing on her backside. Denies any loss of consciousness, change in behavior, vomiting, loss of bowel or bladder continence. 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 Occurred: just prior to arrival Injuries/Pain Location: head, neck, back Context: slipped Loss of Consciousness: no loss of consciousness Associated Symptoms (Fall): Denies Symptoms (not able to answer questions) (ANDRE KAYE,MED STUDENT) Allergies and Home Medications Allergies Coded Allergies: morphine (Unverified Adverse Reaction, Severe, HALLUCINATIONS, 07/24/19) Home Medications Calcium Carbonate/Vitamin D3 1 Each Tablet, 1 TAB PO DAILY, (Reported) Docusate Sodium 100 Mg Capsule, 100 MG PO DAILY Prescribed by: DELL DUQUE on 09/30/19 1157 Levothyroxine Sodium 100 Mcg Tablet, 100 MCG PO DAILY, (Reported) Lisinopril 20 Mg Tablet, 20 MG PO DAILY, (Reported) Meloxicam 7.5 Mg Tablet, 7.5 MG PO DAILY, (Reported) Neomycn/Baci Zn/Pmyx Bs/Pramox 28.3 Gm Oint...g., 28.3 GM TP TID TO URETHRAL MEATUS X 7 DAYS Prescribed by: DENA HYMAN on 07/26/19 1113 Nitrofurantoin Monohyd/M-Cryst 100 Mg Capsule, 1 TAB PO BID Prescribed by: DENA HYMAN on 07/26/19 111 Oxycodone HCl/Acetaminophen 1 Each Tablet, 1 TAB PO Q4H Prescribed by: DELL DUQUE on 09/30/19 1157 Phenazopyridine HCl 200 Mg Tablet, 1 TAB PO TID PRN for SPASMS Prescribed by: DENA HYMAN on 07/26/19 1113 Quetiapine Fumarate 50 Mg Tablet, 50 MG PO HS, (Reported) Patient Home Medication List Home Medication List Reviewed: Yes (ANDRE KAYE MED STUDENT) Review of Systems Review of Systems Constitutional: see HPI Pts answers unreliable due to severity of dementia. (ANDRE KAYE MED STUDENT) Past Hqxaoid-Cvblen-Wwhhat Hx Patient Social History Alcohol Use: Denies Use Recreational Drug Use: No Smoking Status: Former Smoker Type Used: Cigarettes Former Smoker, Quit: Dec 12, 1980 2nd Hand Smoke Exposure: Yes Recent Foreign Travel: No Contact w/Someone Who Travel: No Recent Infectious Disease Expo: No Recent Hopitalizations: No (ANDRE KAYE MED STUDENT) Immunizations Up To Date Tetanus Booster (TDap): Unknown PED Vaccines UTD: No Date of Pneumonia Vaccine: Jul 16, 2019 Date of Influenza Vaccine: Jul 08, 2019 (ANDRE KAYE MED STUDENT) Seasonal Allergies Seasonal Allergies: No (ANDRE KAYE MED STUDENT) Past Medical History Surgeries: Yes Bladder Surgery, Breast, Gallbladder, Hysterectomy, Joint Replacement, Lumpectomy, Orthopedic, Thyroidectomy Respiratory: No Cardiac: Yes Hypertension 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 Reproductive Disorders: Yes PAVER LAYER History: Hysterectomy, Menopausal Sexually Transmitted Disease: No HIV/AIDS: No Genitourinary: Yes UTI-Chronic Gastrointestinal: Yes Gastroesophageal Reflux Musculoskeletal: Yes (LEFT HIP REPLACEMENT FOR ARTHRITIS 2013) Arthritis Endocrine: Yes (MULTINODULAR GOITER--S/P THYROIDECTOMY 12/2016) Hypothyroidsim HEENT: Yes (DENTURES) Loss of Vision: Denies Hearing Impairment: Denies Cancer: Yes (LEFT BREAST CANCER DX 2009--S/P LUMPECTOMY AND SENTINEL NODE BIOPSY) Breast Did You Recieve Any Treatments: Yes What Type of Treatment Did You: Chemotherapy, Radiation, Surgical Intervention Psychosocial: No Integumentary: No Blood Disorders: No Adverse Reaction/Blood Tranf: No (N/A) (ANDRE KAYE MED STUDENT) Family Medical History Family history: Arthritis 03 FATHER 03 MOTHER 09 BROTHER 09 SISTER No Family History of: Abdominal aortic aneurysm Alcoholism Cancer Family history: Alzheimer's disease Family history: Asthma Family history: Breast disease Family history: Cardiovascular disease Family history: Diabetes mellitus Family history: Gastrointestinal disease Family history: Hypertension Family history: Thyroid disorder Hereditary disease History of - respiratory disease Kidney disease Myocardial infarction Parkinson's disease Prostate cancer Psychotic disorder Seizure disorder Stroke Diabetes, Stroke (ANDRE KAYE,MED STUDENT) Physical Exam Vital Signs Vital Signs - First Documented 09/30/19 10:23 Temp 37.0 Pulse 71 Resp 16 B/P (MAP) 125/88 (100) O2 Delivery Room Air (DELL DUQUE APRN) Vital Signs Capillary Refill : Less Than 3 Seconds (ANDRE KAYE,MED STUDENT) Height, Weight, BMI Height: 5'3.00" Weight: 145lbs. 0.0oz. 65.459167nt; 25.00 BMI Method:Stated General Appearance: WD/WN, no apparent distress, other (somnolent ) HEENT: PERRL/EOMI, normal ENT inspection, TMs normal Neck: supple, other (c collar in place ) Cardiovascular: regular rate, rhythm, no edema, no gallop, no murmur Respiratory: chest non-tender, no respiratory distress, no accessory muscle use Gastrointestinal: non tender, soft Extremities: no pedal edema, normal capillary refill Neurologic/Psychiatric: disoriented x 3 (not oriented to person, time or place ), other (inappropriate responses, limited understanding of questions ) Skin: normal color, warm/dry Lymphatic: no adenopathy (supra/infraclavicular, axilla ) (ANDRE KAYE,MED STUDENT) Back: normal inspection, vertebral tenderness Neurologic/Psychiatric: alert (DELL DUQUE APRN) Lincoln Coma Score Best Eye Response: (3) Open to Voice Best Verbal Response: (4) Confused Conversation Best Motor Response: (4) Withdraws to Pain Wilder Total: 11 (ANDER KAYE,MED STUDENT) Progress/Results/Core Measures Results/Orders My Orders Orders - DELL DUQUE APRN Ct Head/Cervical Spine Wo (09/30/19 10:52) Pelvis (09/30/19 10:52) Ct Lumbar Spine Wo (09/30/19 10:52) Oxycodone/Apap 5/325mg Tablet (Percocet (09/30/19 12:00) (DELL DUQUE APRN) Medications Given in ED Current Medications Medications Dose Ordered Sig/Mimi Route Start Time Stop Time Status Last Admin Dose Admin Oxycodone/ Acetaminophen 1 tab ONCE ONCE PO 09/30/19 12:00 09/30/19 12:01 DC 09/30/19 11:57 1 TAB (DELL DUQUE APRN) Vital Signs/I&O 09/30/19 10:23 Temp 37.0 Pulse 71 Resp 16 B/P (MAP) 125/88 (100) O2 Delivery Room Air (DELL DUQUE APRN) Blood Pressure Mean: 100 POS Progress Progress Note : Time: 11:23 Progress Note Seen and evaluated. Ordered head, neck, lumbar and pelvic CT to r/o traumatic fracture, acute head bleed. (ANDRE KAYE,MED STUDENT) Departure Communication (Admissions) Time/Spoke to Admitting Phy: 13:[address] Melton, I was initially going to send the patient home, however we are unable to get her out of bed into the wheelchair, she lives at home with daughter and son-in-law. Daughter does most of the care for her at home and doesn't feel she can take care of her given this pain at home. She is unable to get up into the wheelchair to go home out of bed despite Percocet 5/325 one hour ago. Would prefer the patient to be admitted. This is not unreasonable. Discussed CODE STATUS with the daughter, for the time being she would like her to remain full code, she states "resuscitate her and then we can go from that point" should the situation arise. Family Conversation Dulce see this patient with medical student Andre and agree with assessment and plan of care. NAME: VIRIDIANA HARRIS [facility] REC#: [id number] PT STATUS: REG ER : 1945 PHYSICIAN: DELL DUQUE APRN ADMIT DATE: 09/30/19/ER Draft POSDate of Exam:09/30/19 CT LUMBAR SPINE WO CLINICAL INDICATION: Patient fell in the bathtub this morning and complains of low back pain. EXAM: Axial CT scan of the lumbar spine performed without IV contrast. Coronal and sagittal reformatted images are created. Auto Exposure Controls were utilized during the CT exam to meet ALARA standards for radiation dose reduction. COMPARISON: CT scan of the abdomen and pelvis performed with contrast dated 07/22/2019. FINDINGS: There is a roughly 40% compression fracture deformity of the upper aspect of the L2 vertebra which involves both the anterior and middle columns. There is a small area of bony convexity involving the upper posterior aspect of the L2 vertebra. There is no significant central canal narrowing in the region. There is no other lumbar spine fracture or dislocation. There is suggestion of diffuse disc bulge at the L4-L5 and L5-S1 levels. There is aarcyewp-ml-jkccmy loss of intervertebral disc height at the L5-S1 level. There is uvffvykr-ch-btdqyf left L5-S1 neural foramen narrowing, moderate left L4-L5 neural foramen narrowing, and hkae-yc-oegwyfic right L4-L5 and L5-S1 neural foramen narrowing. There is no significant central canal narrowing. There is anterior spurring and sclerosis and hxni-ba-rrnctyru loss of intervertebral disc height at the T12-L1 level. There is no significant paraspinal soft tissue abnormality. IMPRESSION: 1: There is interval development of an acute compression fracture deformity of the upper L2 endplate with minimal posterior bony convexity of the upper posterior aspect of the vertebral body. There is fracture involvement of the anterior and middle columns. There is no significant central spinal canal narrowing. 2: There is multilevel lumbar spine degenerative disease, as described above. Results of this report were discussed with Dell Duque APRN, via the telephone on 09/30/2019 at 1130 hours. Dictated on workstation # [id number] Dict: 09/30/19 1127 Trans: 09/30/19 1145 [id number] Interpreted by: FAUSTINA BARNES MD Electronically signed by: NAME: VIRIDIANA HARRIS [facility] REC#: [id number] PT STATUS: REG ER : 1945 PHYSICIAN: DELL DUQUE APRN ADMIT DATE: 09/30/19/ER Draft POSDate of Exam:09/30/19 CT HEAD/CERVICAL SPINE WO PROCEDURE: CT head and CT cervical spine without contrast. TECHNIQUE: Multiple contiguous axial images were obtained through the brain and cervical spine without the use of intravenous contrast. Sagittal and coronal reformations through the cervical spine were then performed. Auto Exposure Controls were utilized during the CT exam to meet ALARA standards for radiation dose reduction. INDICATION: Fall, head injury. FINDINGS: Examination is slightly limited secondary to patient motion. Mild atrophy. No intracranial hemorrhage. No intracranial mass, mass effect, midline shift, herniation, hydrocephalus, or extra axial fluid collection. Periventricular and subcortical white matter hypodensities are present, most consistent with mild chronic small vessel white matter ischemic disease. No definite CT evidence of an acute ischemic infarction. The bilateral ocular lenses are absent. The paranasal sinuses are clear. The calvarium and extracalvarial soft tissues are unremarkable. 2 mm anterolisthesis of C4 on C5 with 2 mm retrolisthesis of C5 on C6, appearing similar to 2010. Ankylosis of the bilateral C2-C3 facet joints with ankylosis of the left C3-C4 facet joint. Alignment of the atlantooccipital joint is well maintained. Besides endplate degenerative changes, vertebral body heights are otherwise well-maintained. Severe disc space height loss at C5-C6 and C6-C7. No acute fracture or dislocation. No destructive osseous process. Scattered facet joint degenerative changes and uncovertebral joint hypertrophy are noted. There is resulting moderate bilateral neural foraminal stenosis at C5-C6, right greater than left. No high-grade osseous central canal stenosis. No apical pneumothorax. Paraspinal soft tissues are unremarkable. IMPRESSION: No acute intracranial abnormality with mild atrophy and mild background chronic small vessel white matter ischemic disease within the limits of the exam. No acute osseous abnormality within the cervical spine with asjd-om-xfgnnokm degenerative changes, greatest at C5-C6. Low-grade anterolisthesis and retrolisthesis within the cervical spine, felt to be degenerative in nature as this is not significantly changed since 2009. Dictated on workstation # [id number] Dict: 09/30/19 1125 Trans: 09/30/19 1140 [facility] [id number] Interpreted by: DANIELLE LUCIANO MD Electronically signed by: (DELL DUQUE APRN) Impression Primary Impression: L2 vertebral fracture Qualified Codes: S32.029A - Unspecified fracture of second lumbar vertebra, initial encounter for closed fracture Disposition: HOME, SELF-CARE Condition: Stable Admissions Decision to Admit Reason: Admit from ER (General) Decision to Admit/Date: Sep 30, 2019 Time/Decision to Admit Time: 13:04 (DELL DUQUE APRN) Departure-Patient Inst. Decision time for Depature: 11:53 (DELL DUQUE APRN) Referrals: JULIO MELTON MD (PCP/Family) Primary Care Physician Patient Instructions: Vertebral Compression Fracture (DC) Add. Discharge Instructions: 1. Pain medication as directed 2. Follow up with your doctor next week All discharge instructions reviewed with patient and/or family. Voiced understanding. Scripts Oxycodone HCl/Acetaminophen (Percocet 5-325 mg Tablet) 1 Each Tablet 1 TAB PO Q4H for PAIN-MODERATE MDD 6 TABS for 7 Days, #20 TAB Prov: DELL DUQUE APRN 09/30/19 Docusate Sodium (Colace) 100 Mg Capsule 100 MG PO DAILY, #20 CAP Prov: DELL DUQUE APRN 09/30/19 ANDRE KAYE,MED STUDENT Sep 30, 2019 11:13 DELL CARMICHAEL APRN Sep 30, 2019 11:57 POS
--- NOTE | 2019-09-30 11:23 | NUR ---
BACK FROM CT.
--- NOTE | 2019-09-30 11:41 | Diagnostic Imaging Report ---
PROCEDURE: CT head and CT cervical spine without contrast. TECHNIQUE: Multiple contiguous axial images were obtained through the brain and cervical spine without the use of intravenous contrast. Sagittal and coronal reformations through the cervical spine were then performed. Auto Exposure Controls were utilized during the CT exam to meet ALARA standards for radiation dose reduction. INDICATION: Fall, head injury. FINDINGS: Examination is slightly limited secondary to patient motion. Mild atrophy. No intracranial hemorrhage. No intracranial mass, mass effect, midline shift, herniation, hydrocephalus, or extra axial fluid collection. Periventricular and subcortical white matter hypodensities are present, most consistent with mild chronic small vessel white matter ischemic disease. No definite CT evidence of an acute ischemic infarction. The bilateral ocular lenses are absent. The paranasal sinuses are clear. The calvarium and extracalvarial soft tissues are unremarkable. 2 mm anterolisthesis of C4 on C5 with 2 mm retrolisthesis of C5 on C6, appearing similar to 2010. Ankylosis of the bilateral C2-C3 facet joints with ankylosis of the left C3-C4 facet joint. Alignment of the atlantooccipital joint is well maintained. Besides endplate degenerative changes, vertebral body heights are otherwise well-maintained. Severe disc space height loss at C5-C6 and C6-C7. No acute fracture or dislocation. No destructive osseous process. Scattered facet joint degenerative changes and uncovertebral joint hypertrophy are noted. There is resulting moderate bilateral neural foraminal stenosis at C5-C6, right greater than left. No high-grade osseous central canal stenosis. No apical pneumothorax. Paraspinal soft tissues are unremarkable. IMPRESSION: No acute intracranial abnormality with mild atrophy and mild background chronic small vessel white matter ischemic disease within the limits of the exam. No acute osseous abnormality within the cervical spine with qitp-ng-nokosyam degenerative changes, greatest at C5-C6. Low-grade anterolisthesis and retrolisthesis within the cervical spine, felt to be degenerative in nature as this is not significantly changed since 2009. Dictated by: Dictated on workstation # [id number]
--- NOTE | 2019-09-30 11:44 | Diagnostic Imaging Report ---
INDICATION: Fall COMPARISON: July 22, 2019 TECHNIQUE: Single radiograph of the pelvis dated September 30, 2019. FINDINGS: Left total hip arthroplasty is again noted, appearing similar. Degenerative changes within the partially visualized lower lumbar spine. No acute fracture or dislocation. No destructive osseous process. Severe degenerative changes of the right hip joint are noted with significant joint space narrowing and mild osteophyte formation. The sacroiliac joints are intact. IMPRESSION: Postsurgical changes within the left hip with scattered degenerative changes without acute osseous abnormality. Dictated by: Dictated on workstation # [id number]
--- NOTE | 2019-09-30 11:46 | Diagnostic Imaging Report ---
CLINICAL INDICATION: Patient fell in the bathtub this morning and complains of low back pain. EXAM: Axial CT scan of the lumbar spine performed without IV contrast. Coronal and sagittal reformatted images are created. Auto Exposure Controls were utilized during the CT exam to meet ALARA standards for radiation dose reduction. COMPARISON: CT scan of the abdomen and pelvis performed with contrast dated 07/22/2019. FINDINGS: There is a roughly 40% compression fracture deformity of the upper aspect of the L2 vertebra which involves both the anterior and middle columns. There is a small area of bony convexity involving the upper posterior aspect of the L2 vertebra. There is no significant central canal narrowing in the region. There is no other lumbar spine fracture or dislocation. There is suggestion of diffuse disc bulge at the L4-L5 and L5-S1 levels. There is nudjqark-pe-lztikq loss of intervertebral disc height at the L5-S1 level. There is wmigxctq-zw-khtvmi left L5-S1 neural foramen narrowing, moderate left L4-L5 neural foramen narrowing, and dyag-mh-aptwjfjw right L4-L5 and L5-S1 neural foramen narrowing. There is no significant central canal narrowing. There is anterior spurring and sclerosis and tqsp-gs-syrtxswo loss of intervertebral disc height at the T12-L1 level. There is no significant paraspinal soft tissue abnormality. IMPRESSION: 1: There is interval development of an acute compression fracture deformity of the upper L2 endplate with minimal posterior bony convexity of the upper posterior aspect of the vertebral body. There is fracture involvement of the anterior and middle columns. There is no significant central spinal canal narrowing. 2: There is multilevel lumbar spine degenerative disease, as described above. Results of this report were discussed with Vasyl Duque APRN, via the telephone on 09/30/2019 at 1130 hours. Dictated by: Dictated on workstation # [id number]
[2019-09-30] MEDS ORDERED: OXYC1TAB87 PO (11:57)
[2019-09-30] MEDS ORDERED: DOCU-143 PO (11:57)
[2019-09-30] MEDS ORDERED: oxyCODONE/APAP 5/325MG (PERCOCET 5) TABLET PO ONE (12:00)
--- NOTE | 2019-09-30 13:06 | NUR ---
UNABLE TO SIT PATIENT UP IN BED WITH C/O PAIN AND YELLING
--- NOTE | 2019-09-30 14:00 | NUR ---
VIRIDIANA HARRIS admitted to room 425-1, with an admitting diagnosis of L2 COMPRESSION FRACTURE WITH INTRACTABLE PAIN, DEMENTIA, on 09/30/19 from ED via STRETCHER, accompanied by ED STAFF. VIRIDIANA HARRIS'S FAMILY introduced to surroundings, call light, bed controls, phone, TV, temperature control, lights, meal times, smoking policy, visitor policy, side rail policy, bathrooms and showers. Patient Rights given to patient in the handbook. VIRIDIANA HARRIS'S FAMILY verbalizes understanding that [facility] is not responsible for the loss or damage to any personal effects or valuables that are kept in the patients possession during their hospitalization. The following Patient Care Plans were discussed with the PATIENT AND HER FAMILY: Discharge Planning, BACK PAIN, and KNOWLEDGE DEFICIT. VIRIDIANA HARRIS'S FAMILY verbalizes understanding of Interdisciplinary Patient Education. Patient and/or family were informed about the Rapid Response Team and its purpose.
[2019-09-30] MEDS ORDERED: fentaNYL INJECTION 100 MCG/2 ML AMP IV PRN (14:15)
[2019-09-30] MEDS ORDERED: CATHETER FLUSH 10 ML SYR IV PRN (14:15)
[2019-09-30] MEDS ORDERED: QUET50TA55 PO (14:29)
--- NOTE | 2019-09-30 14:31 | NUR ---
SPOKE WITH THE PATIENTS FAMILY ABOUT MEDICATIONS. WE WENT OVER THE EXT MED HX. THE SEROQUEL WAS FILLED #60 FOR 30 DAYS 08-19-19 HOWEVER FAMILY STATES THE PATIENT ONLY TAKES 1 TAB AT HS. SHE TAKES CALCIUM +D OTC DAILY. FAMILY STATES THE MELOXICAM IS PRN. PERCOCET AND COLACE SCRIPTS WERE INITIATED IN ED BUT PATIENT WAS ADMITTED INSTEAD SO I REMOVED THOSE SCRIPTS THEY DID NOT RECEIVE THE PRINTED ONES YET.
--- NOTE | 2019-09-30 15:21 | Occ Therapy Progress Note ---
Therapy Progress Note Per PT, pt's family request therapy eval/ treat following day due to pt's current state. Will address tomorrow. MONICA CERVANTES OTR Sep 30, 2019 15:21 POS
[2019-09-30 15:29] VITALS: BP 134/92
--- NOTE | 2019-09-30 15:49 | Physical Therapy Progress Note ---
Therapy Progress Note Patient's family requests that PT begin in a.m. due to patient has dementia and had a pain pill and is currently resting. PT to assess in a.m. 1 ref ([id number]) MAGGIE CHNA PT Sep 30, 2019 15:49 POS
--- NOTE | 2019-09-30 16:41 | NUR ---
LEFT MESSAGE FOR DR MELTON REGARDING DVT SCORE OF 2 AND TO INQUIRE ABOUT THE ORDERED CONTINUOUS PULSE OK.
[2019-09-30 16:45] VITALS: BP 177/93
--- NOTE | 2019-09-30 17:57 | NUR ---
DR MELTON ON THE FLOOR TO SEE THE PATIENT. HE WILL ADDRESS THE DVT PROPHYLAXIS AND ENTER NEW ORDERS FOR PAIN RELIEF.
[2019-09-30] MEDS ORDERED: fentaNYL PATCH 25 MCG (DURAGESIC) TD SCH (18:15)
[2019-09-30] MEDS ORDERED: MELOXICAM 7.5 MG (MOBIC) TABLET PO PRN (18:15)
--- NOTE | 2019-09-30 18:19 | History & Physical ---
History of Present Illness History of Present Illness Reason for visit/HPI 74-year-old female with progressing dementia admitted for intractable back pain status post fall. Daughter reports this a.m. she found her mother had had a large bowel movement in her bed which required a shower. When patient was getting out of the shower she slipped and fell hitting her head on the tile wall and her back on the wall and bathtub. Patient's daughter reports she looked like she convulsed for a few seconds. Patient's daughter was unable to get her up so she called EMS. She was brought to the emergency department in which a CT of head and spine were performed demonstrating a L2 compression fracture. Patient was unable to get up and get into a wheelchair to leave the ER so the decision was made to admit for further evaluation. Physical therapy and occupational therapy came to work with patient but she was in too much excruciating pain to participate. They will try again tomorrow. Of note patient has past medical history of hypertension, hypothyroidism, and breast cancer. Patient's biggest issue though is her progressing dementia in which she continues to decrease the amount of by mouth intake. Patient's daughter is having more and more trouble taking care of her. Prior to the fall, Patient is to the point of only taking a couple steps and then requiring a wheelchair to get around. She is very deconditioned and not willing to participate in walking or caring for herself. This is a result of her progressing dementia. Patient is currently getting fentanyl IV and by mouth hydrocodone. We'll stop the fentanyl IV and put a fentanyl patch on. Also will start calcitonin nasal spray. Goal would be to control her pain with the fentanyl patch and calcitonin nasal spray as every pill that she has to take is a choking hazard. Also patient usually refuses to take pills consistently. Date of Admission Sep 30, 2019 at 13:00 Date Seen by a Provider: Sep 30, 2019 Time Seen by a Provider: 18:12 I consulted on this patient on 09/30/19 18:12 Attending Physician Justo Melton MD Admitting Physician Justo Melton MD Consult Allergies and Home Medications Allergies Coded Allergies: morphine (Unverified Adverse Reaction, Severe, HALLUCINATIONS, 07/24/19) Home Medications Calcium Carbonate/Vitamin D3 1 Each Tablet, 1 TAB PO DAILY, (Reported) Levothyroxine Sodium 100 Mcg Tablet, 100 MCG PO DAILY, (Reported) Lisinopril 20 Mg Tablet, 20 MG PO DAILY, (Reported) Meloxicam 7.5 Mg Tablet, 7.5 MG PO DAILY PRN for ARTHRITIS PAIN, (Reported) Quetiapine Fumarate 50 Mg Tablet, 50 MG PO 1900, (Reported) Patient Home Medication List Home Medication List Reviewed: Yes Past Fdhhakm-Xyamjb-Vkdehy Hx Patient Social History Alcohol Use: Denies Use Recreational Drug Use: No Smoking Status: Never a Smoker Former Smoker, Quit: Sep 30, 1981 Type Used: Cigarettes 2nd Hand Smoke Exposure: Yes Physical Abuse Screen: No Sexual Abuse: No Recent Foreign Travel: No Contact w/other who traveled: No Recent Hopitalizations: No Recent Infectious Disease Expo: No Immunizations Up To Date Tetanus Booster (TDap): Unknown Pediatric: No Date of Pneumonia Vaccine: Jul 16, 2019 Date of Influenza Vaccine: Jul 08, 2019 Seasonal Allergies Seasonal Allergies: No Surgeries Yes Bladder Surgery, Breast, Gallbladder, Hysterectomy, Joint Replacement, Lumpectomy, Orthopedic, Thyroidectomy Respiratory No Cardiovascular Yes Hypertension Neurological Yes (DEMENTIA WITH "SUNDOWNER'S" ) Dementia Reproductive System Hx Reproductive Disorders: Yes Sexually Transmitted Disease: No HIV/AIDS: No 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, 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 Genitourinary Yes UTI-Chronic Gastrointestinal No Gastroesophageal Reflux Musculoskeletal Yes (LEFT HIP REPLACEMENT FOR ARTHRITIS 2013) Arthritis Endocrine History of Endocrine Disorders: Yes (MULTINODULAR GOITER--S/P THYROIDECTOMY 12/2016) Endocrine Disorders: Hypothyroidsim HEENT History of HEENT Disorders: Yes (DENTURES) Loss of Vision: Denies Hearing Impairment: Denies Cancer Yes (LEFT BREAST CANCER DX 2009--S/P LUMPECTOMY AND SENTINEL NODE BIOPSY) Breast Did You Recieve Any Treatments: Yes Type of Treatment: Chemotherapy, Radiation, Surgical Intervention Psychosocial History of Psychiatric Problem: No Integumentary History of Skin or Integumenta: No Blood Transfusions History of Blood Disorders: No Adverse Reaction to a Blood Tr: No (N/A) Family Medical History Significant Family History: Diabetes, Stroke Family Hx: Family history: Arthritis 03 FATHER 03 MOTHER 09 BROTHER 09 SISTER No Family History of: Abdominal aortic aneurysm Alcoholism Cancer Family history: Alzheimer's disease Family history: Asthma Family history: Breast disease Family history: Cardiovascular disease Family history: Diabetes mellitus Family history: Gastrointestinal disease Family history: Hypertension Family history: Thyroid disorder Hereditary disease History of - respiratory disease Kidney disease Myocardial infarction Parkinson's disease Prostate cancer Psychotic disorder Seizure disorder Stroke Review of Systems Review of Systems ROS Unable to Obtain: dementia General: No Chills HEENT: No Head Aches Pulmonary: No Dyspnea Cardiovascular: No: Chest Pain Gastrointestinal: No: Nausea, Vomiting Genitourinary: No Dysuria Physical Exam Vital Signs Vital Signs - First Documented 09/30/19 09/30/19 10:23 13:42 Temp 37.0 Pulse 71 Resp 16 B/P (MAP) 125/88 (100) Pulse Ox 95 O2 Delivery Room Air Capillary Refill : Less Than 3 Seconds Height, Weight, BMI Height: 5'3.00" Weight: 145lbs. 0.0oz. [id number]; 25.01 BMI Method:Stated General Appearance: Mild Distress HEENT: PERRL/EOMI Neck: Non Tender, Supple Respiratory: Chest Non Tender, Normal Breath Sounds Cardiovascular: Regular Rate, Rhythm Gastrointestinal: Non Tender, Soft Rectal: Deferred Back: Vertebral Tenderness (low back) Extremity: Non Tender, No Calf Tenderness Neurologic/Psychiatric: Alert, Other (not oriented x 3) Skin: Warm/Dry Assessment/Plan Assessment/Plan Admission Dx intractable back pain Admission Status: Inpatient Order (span 2 midnights) Reason for Inpatient Admission: Due to patient's intractable back pain- we will monitor her closely for progression/improvement. Also will get a better assessment of her dementia. Assessment and Plan Stopped fentanyl IV starting fentanyl patch 25 g per hour to start and will reassess patient's mental status at that time to see how it affects her. This will be difficult given her baseline progressive dementia. Starting calcitonin nasal spray as well. Monitor fluid and food intake to see how many calories she is actually eating as this has been issue that has been worsening. Patient's daughter reports she may drink a few ounces a day and may or may not eat anything. Also checking a CMP to further evaluate her kidney function. DVT risk score 2 for now will use SCDs. Physical therapy and occupational therapy to work with and evaluate patient. Discussed with patient's daughter that she may not be able to continue to live with her given her progression of continued need of care. Daughter wants to continue with caring for her and would like a hospital bed to keep her in her bed at night; she also needs handrails, etc. OT to evaluate this. Dispo: dementia is progressing and I suspect patient will continue to decline and prognosis is poor. Problems: (1) Hypothyroidism Qualifiers: Qualified Codes: E89.0 - Postprocedural hypothyroidism Assessment & Plan: continue levothyroxine (2) Hypertension Qualifiers: Qualified Codes: I10 - Essential (primary) hypertension Assessment & Plan: continue lisinopril (3) Alzheimer's dementia with behavioral disturbance Qualifiers: Qualified Codes: G30.9 - Alzheimer's disease, unspecified; F02.81 - Dementia in other diseases classified elsewhere with behavioral disturbance (4) L2 vertebral fracture Qualifiers: Clinical Quality Measures DVT/VTE Risk/Contraindication: Risk Factor Score Per Nursin RFS Level Per Nursing on Admit: 2=Moderate JUSTO MELTON MD Sep 30, 2019 18:19 POS
[2019-09-30 18:59] LABS: BASOPHILS % (AUTO) 0 % (0-10); EOSINOPHILS # (AUTO) 0.1 10^3/uL (0.0-0.3); EOSINOPHILS % (AUTO) 1 % (0-10); HEMATOCRIT 39 % (35-52); HEMOGLOBIN 13.3 G/DL (11.5-16.0); LYMPHOCYTES # (AUTO) 1.5 X 10^3 (1.0-4.0); LYMPHOCYTES % (AUTO) 15 % (12-44); MEAN CORPUSCULAR HEMOGLOBIN 32 PG (25-34); MEAN CORPUSCULAR HGB CONC 34 G/DL (32-36); MEAN CORPUSCULAR VOLUME 93 FL (80-99); MEAN PLATELET VOLUME 9.6 FL (7.4-10.4); MONOCYTES # (AUTO) 0.6 X 10^3 (0.0-1.0); MONOCYTES % (AUTO) 6 % (0-12); NEUTROPHILS # (AUTO) 7.8 X 10^3 (1.8-7.8); NEUTROPHILS % (AUTO) 78 % (42-75); PLATELET COUNT 269 10^3/uL (130-400); RED CELL DISTRIBUTION WIDTH 13.3 % (10.0-14.5); WHITE BLOOD COUNT 10.1 10^3/uL (4.3-11.0)
[2019-09-30 19:14] LABS: ALANINE AMINOTRANSFERASE 13 U/L (0-55); ALBUMIN 4.1 GM/DL (3.2-4.5); ALKALINE PHOSPHATASE 75 U/L (40-136); BILIRUBIN,TOTAL 0.7 MG/DL (0.1-1.0); BUN/CREATININE RATIO 7; CALCIUM 8.9 MG/DL (8.5-10.1); CARBON DIOXIDE 27 MMOL/L (21-32); CHLORIDE 101 MMOL/L (98-107); GFR ESTIMATED > 60; GLUCOSE 103 MG/DL (70-105); SODIUM 141 MMOL/L (135-145); TOTAL PROTEIN 7.7 GM/DL (6.4-8.2)
[2019-09-30 20:40] VITALS: BP 176/93
--- NOTE | 2019-09-30 21:14 | NUR ---
Dr. Tatum notified of daughter requesting pt be started on IVF's - daughter states pt has only drank approximately 4 oz since arrival and must be prompted to drink or else she would not. New order rec to start LR at 100 mls/hr.
[2019-09-30] MEDS: QUEtiapine 25 MG (SEROquel) TAB IMMEDIATE RELEASE PO SCH ×2 (21:43→21:45)
[2019-09-30] MEDS: LACTATED RINGERS 1,000 ML IV SCH (21:43)
[2019-09-30] MEDS: DOCUSATE SODIUM 100 MG (COLACE) CAP PO SCH (21:44)
[2019-09-30] MEDS: CATHETER FLUSH 10 ML SYR IV SCH (21:46)
--- NOTE | 2019-09-30 21:53 | NUR ---
Dr. Tatum notified of foul smelling urine. New order rec to straight cath x 1 to obtain UA (culture if indicated). Will notify with results.
--- NOTE | 2019-09-30 22:20 | NUR ---
UA obtained via straight cath using sterile technique and sent to lab. Pt tolerated well.
[2019-09-30 22:30] LABS: BILIRUBIN,URINE NEGATIVE (NEGATIVE); CLARITY,URINE CLEAR; COLOR,URINE YELLOW; GLUCOSE, URINE (UA) NEGATIVE (NEGATIVE); KETONES,URINE NEGATIVE (NEGATIVE); LEUKOCYTE ESTERASE ,URINE 1+ (NEGATIVE); NITRITE,URINE POSITIVE (NEGATIVE); PROTEIN,URINE 1+ (NEGATIVE)
[2019-09-30 22:45] LABS: BACTERIA,URINE LARGE /HPF; WBC,URINE TNTC /HPF
--- NOTE | 2019-09-30 22:55 | NUR ---
Dr. Tatum notified of UA results (+ for nitrates, 1+ Leuko Esterace, moderate mucus, large bacteria, and WBC's TNTC). New order rec to start Rocephin 1 gm IV daily.
[2019-09-30] MEDS: cefTRIAXone FOR IV USE 1,000 MG in WATER (STERILE) FOR INJECTION 10 ML IV SCH (23:22)
[2019-10-01 00:20] VITALS: BP 126/69
[2019-10-01] MEDS: CATHETER FLUSH 10 ML SYR IV SCH ×3 (01:26→20:59)
[2019-10-01 04:25] VITALS: BP 114/65
[2019-10-01] MEDS: LACTATED RINGERS 1,000 ML IV SCH ×2 (06:31→17:17)
[2019-10-01] MEDS: LEVOTHYROXINE 100 MCG (LEVOTHROID) TAB PO SCH (06:31)
[2019-10-01 08:00] VITALS: BP 161/75
[2019-10-01] MEDS: CALCITONIN NASAL 200 INTLU/AC (FORTICAL) 3.7 ML BTL SCH (08:15)
[2019-10-01] MEDS: oxyCODONE/APAP 5/325MG (PERCOCET 5) TABLET PO PRN ×3 (08:15→23:53)
[2019-10-01] MEDS: DOCUSATE SODIUM 100 MG (COLACE) CAP PO SCH ×2 (08:15→21:00)
[2019-10-01] MEDS: lisINopril 20 MG (PRINIVIL) TABLET PO SCH (08:15)
--- NOTE | 2019-10-01 10:19 | Occ Therapy Progress Note ---
Therapy Progress Note OT orders received and chart reviewed. OT visited with pt and pt's daughter, pt sleeping upright in recliner. OT attempted to awaken pt, pt able to open her eyes then closes them, she did not keep her eyes open when asked and did not provide verbal responses to questions. Her daughter indicates this is how the pt is at PLOF, sleeping throughout the day. She stated pt requires total assistance with all ADLs prior to hospitalization, including bathing and dressing, pt is unable to help with any parts of the tasks. Based off of daughters report about pt currently functioning at [facility], and pt not participating in session, skilled OT services are not indicated at this time. Thank you for this referral. 1, visit [id number] RYLAND ARTIS OT Oct 01, 2019 10:19 POS
--- NOTE | 2019-10-01 10:38 | Physical Therapy Evaluation ---
PT Evaluation-General Medical Diagnosis Admission Date Sep 30, 2019 at 13:00 Medical Diagnosis: L2 compression fracture Onset Date: Sep 30, 2019 Therapy Diagnosis Therapy Diagnosis: debility/weakness Height/Weight Height (Feet): 5 Height (Inches): 3.00 Weight (Pounds): 145 Weight (Ounces): 0.0 Precautions Precautions/Isolations: Fall Prevention Weight Bear Status Right Lower Extremity: Right Weight Bearing/Tolerated Left Lower Extremity: Left Weight Bearing/Tolerated Referral Physician: Rc Reason for Referral: Evaluation/Treatment Medical History Pertinent Medical History: Dementia, GERD, HTN, Hypothroidism Current History EMS secondary to fall in shower with family assisting with showering Reviewed History: Yes Social History Home: Single Level Current Living Status: Other Family Entry Into Home: Ramp Prior Prior Level of Function SCALE: Activities may be completed with or without assistive devices. 6-Etjubkenrg-apavxuj completes the activity by him/herself with no assistance from a helper. 5-Set-up or Clean-up Assistance-helper sets up or cleans up; patient completes activity. [place] assists only prior to or following the activity. 4-Supervision or Touching Assistance-helper provides verbal cues and/or touching/steadying and/or contact guard assistance as patient completes activity. Assistance may be provided throughout the activity or intermittently. 3-Partial/Moderate Assistance-helper does LESS THAN HALF the effort. [place] lifts, holds or supports trunk or limbs, but provides less than half the effort. 2-Substantial/Maximal Assistance-helper does MORE THAN HALF the effort. [place] lifts or holds trunk or limbs and provides more than half the effort. 4-Hhsngxyrg-nxizfl does ALL the effort. Patient does none of the effort to complete the activity. Or, the assistance of 2 or more helpers is required for the patient to complete the activity. If activity was not attempted, code reason: 7-Patient Refused. 9-Not Applicable-not attempted and the patient did not perform the activity before the current illness, exacerbation or injury. 10-Not Attempted due to Environmental Limitations-(lack of equipment, weather restraints, etc.). 88-Not Attempted due to Medical Conditions or Safety Concerns. Bed Mobility: 2 Transfers (B,C,W/C): 2 Gait: 9 Stairs: 9 Wheelchair Mobility: 1 Indoor Mobility (Ambulation): Not Applicalbe Stairs: Not Applicalbe Prior Devices Use: Manual wheelchair, None family assist with all mobility and ADL's PT Evaluation-Current Subjective Patient's family agree to PT. Pain Numeric Pain Scale: 10-Worst Possible Pain Location: Lower Location Body Site: Back Pain Description: Acute Comment: FLACC Objective Patient Orientation: Confused ROM/Strength ROM Lower Extremities bilateral LE WFL Strength Lower Extremities 3/5 grossly bilateral LE Integumentary/Posture Integumentary refer to nursing notes Bowel Incontinence: Yes Bladder Incontinence: Yes Posture trunk flexed posture in stand due to inactivity PLOF per family Neuromuscular (Tone, Coordination, Reflexes) severely diminished with all Sensory Vision: Functional Hearing: Functional Sensation Right Lower Extremit: Intact Sensation Left Lower Extremity: Intact Transfers Roll Left to Right (QC): 1 Sit to Lying (QC): 1 Lying to Sitting/Side of Bed(Q: 1 Sit to Stand (QC): 1 Chair/Tqb-qg-Gxaac Xfer(QC): 1 Car Transfer (QC): 88 dependent assist with use of gait belt with all mobility Gait Does the Patient Walk?: No and Walking Goal NOT indicated Mode of Locomotion: Wheelchair Anticipated Mode of Locomotion: Wheelchair Walk 10 feet (QC): 9 Walk 50 ft with 2 Turns(QC): 9 Walk 150 ft (QC): 9 Walking 10ft/uneven surface-QC: 9 Wheelchair Training Does the Pt Use a Wheelchair?: Yes Wheel 50 ft with 2 turns (QC): 88 Wheel 150 ft (QC): 88 Type of Wheelchair: Manual Stairs 1 Step (curb) (QC): 9 4 Steps (QC): 9 12 Steps (QC): 9 Balance Sitting Static: Fair Sitting Dynamic: Fair Standing Static: Poor Standing Dynamic: Poor Picking up an Object (QC): 9 Assessment/Needs 74 y.o. female, will be seen short term by skilled PT to address functional mobility to improve current LOF. Patient is unable to follow simple direction to perform exercises and requires tactile cues (AAROM) Rehab Potential: Guarded PT Care Home Goals Care Home Goals PT Field Geologist Goals Time Frame: Oct 05, 2019 Roll Left & Right (QC): 2 Sit to Lying (QC): 2 Lying-Sitting on Side/Bed(QC): 2 Sit to Stand (QC): 2 Chair/Qox-gs-Ujwsm Xfer(QC): 2 Toilet Transfer (QC): 2 Car Transfer (QC): 2 Does the Patient Walk: No and Walking Goal NOT indicated Walk 10 feet (QC): 9 Walk 50ft with 2 Turns (QC): 9 Walk 150 ft (QC): 9 Walking 10ft on Uneven Surface: 9 1 Step (curb) (QC): 9 4 Steps (QC): 9 12 Steps (QC): 9 Picking up an Object (QC): 9 Does the Pt use WC or Scooter?: Yes Type: Manual Type: N/A PT Plan Problem List Problem List: Activity Tolerance, Functional Strength, Safety, Balance, Transfer, Bed Mobility Treatment/Plan Treatment Plan: Continue Plan of Care Treatment Plan: Bed Mobility, Education, Functional Activity Jean Pierre, Functional Strength, Safety, Therapeutic Exercise, Transfers Treatment Duration: Oct 05, 2019 Frequency: 5 times per week Estimated Hrs Per Day: .25 hour per day Patient and/or Family Agrees t: Yes Discharge Recommendations Therapy Discharge Recommendati: Other, See Comments ([facility]), Home & Family Time/GCodes Time In: 901 Time Out: 913 Total Billed Treatment Time: 12 Total Billed Treatment 1 visit EVLowC 12 min MAGGIE CHAN PT Oct 01, 2019 10:38 POS
[2019-10-01 12:00] VITALS: BP 149/84
--- NOTE | 2019-10-01 15:46 | NUR ---
CM/SS: Visited with daughter about discharge plan. Consult for in home assistance. Plan: Explore options for pt related to in home assistance and possible skilled stay at [facility] for pt to get stronger and return to daughters home. Summary: Daughter reports pt has been more difficult to manage at home. Daughter reports that she has three or four small children at home all under the age of 7 and that the pt has lived with her for three years. Daughter seems ok with exploring options for pt. Pt is sitting in the chair sleeping and does not awake when this worker is in the room. Daughter seems open to either [facility] or [facility].
[2019-10-01 16:00] VITALS: BP 178/84
[2019-10-01] MEDS ORDERED: MAGNESIUM 1 GM/100 ML IVPB 200 ML IV ONE (17:10)
[2019-10-01] MEDS: MAGNESIUM 1 GM/100 ML IVPB 100 ML IV SCH ×2 (17:18→18:26)
[2019-10-01] MEDS: POTASSIUM CL 10MEQ/50ML IVPB 50 ML IV SCH ×4 (17:28→21:00)
--- NOTE | 2019-10-01 19:34 | NUR ---
PURPLISH (BRUISING) AREA TO COCCYX AREA. FENTANYL PATCH CONT TO RIGHT SHOULDER AREA.
[2019-10-01 20:00] VITALS: BP 170/82
[2019-10-01] MEDS: QUEtiapine 25 MG (SEROquel) TAB IMMEDIATE RELEASE PO SCH (21:00)
--- NOTE | 2019-10-01 23:03 | Progress Note ---
Subjective Subjective Date Seen by Provider: Oct 01, 2019 Time Seen by Provider: 12:55 74 yo F since admission she was found to have hypokalemia and an urinary tract inf ection. Rocephin was started while cultures are pending. Surprising patient's kidney function is acceptable- despite her lack of po intake. Daughter clarified it is hit and miss on her intake which explains why her labs look okay- she does eat and drink more than initially told. This AM- she ate nearly all of her breakfast. PT/OT worked with patient today. Review of Systems ROS Unable to Obtain: dementia General: No Chills HEENT: No Head Aches Pulmonary: No Dyspnea Cardiovascular: No: Chest Pain Gastrointestinal: No: Nausea, Vomiting Genitourinary: No Dysuria Objective Exam Vital Signs Vital Signs Date Time Temp Pulse Resp B/P (MAP) Pulse Ox O2 Delivery O2 Flow Rate FiO2 10/01/19 20:00 37.0 66 18 170/82 (111) 96 Room Air 10/01/19 16:00 36.6 72 18 178/84 (115) 94 Room Air 10/01/19 13:50 95 Room Air 10/01/19 12:00 36.2 69 18 149/84 (105) 96 Room Air 10/01/19 11:28 96 Room Air 10/01/19 08:00 93 Room Air 10/01/19 08:00 35.8 62 18 161/75 (103) 96 Room Air 10/01/19 04:25 36.2 60 19 114/65 (81) 95 Room Air 10/01/19 01:44 99 Room Air 10/01/19 00:20 36.0 62 18 126/69 (88) 94 Room Air I & O 10/01/19 07:00 Intake Total 1130 ml Output Total 0 ml Balance 1130 ml General Appearance: No Apparent Distress; No Mild Distress HEENT: PERRL/EOMI Neck: Non Tender, Supple Respiratory: Chest Non Tender, Normal Breath Sounds Cardiovascular: Regular Rate, Rhythm Gastrointestinal: Non Tender, Soft Rectal: Deferred Back: Vertebral Tenderness (low back) Extremity: Non Tender, No Calf Tenderness Neurologic/Psychiatric: Alert, Other (not oriented x 3) Skin: Warm/Dry Results Lab Microbiology 09/30/19 Urine Culture - Preliminary, Resulted Klebsiella pneumoniae Proteus mirabilis Assessment/Plan Assessment/Plan Admission Dx intractable back pain Assessment and Plan 09/30/19- admitted 10/01/19- Pain appears to be improved with fentanyl patch- if she is too somnolent will decrease dosage. -replacing potassium -treating UTI, awaiting culture/sensitivity. -TSH significantly elevated- patient does not take her levothyroxine as prescribed. DVT risk score 2 for now will use SCDs. Physical therapy to continue working with patient while inpatient. Dispo: -still requiring inpatient admission for pain control, electrolyte replacement and UTI treatment/antibiotic selection. ---dementia is progressing and I suspect patient will continue to decline and prognosis is poor. Rate of decline is the variable. I have been discussing this with patient's daughter over the past year and she has acknowledged the increased rate of decline. Daughter wants to continue with caring for her and would like a hospital bed to keep her in her bed at night; she also needs handrails, etc. Case management to make comment. Problems: (1) Hypothyroidism Qualifiers: Qualified Codes: E89.0 - Postprocedural hypothyroidism Assessment & Plan: continue levothyroxine (2) Hypertension Qualifiers: Qualified Codes: I10 - Essential (primary) hypertension Assessment & Plan: continue lisinopril (3) Alzheimer's dementia with behavioral disturbance Qualifiers: Qualified Codes: G30.9 - Alzheimer's disease, unspecified; F02.81 - Dementia in other diseases classified elsewhere with behavioral disturbance (4) L2 vertebral fracture Qualifiers: Admission Dx intractable back pain Clinical Quality Measures Admission Status Admission Dx intractable back pain DVT/VTE Risk/Contraindication: Risk Factor Score Per Nursin RFS Level Per Nursing on Admit: 2=Moderate JULIO MELTON MD Oct 01, 2019 23:03 POS
[2019-10-01] MEDS: cefTRIAXone FOR IV USE 1,000 MG in WATER (STERILE) FOR INJECTION 10 ML IV SCH (23:52)
[2019-10-02] MEDS: LACTATED RINGERS 1,000 ML IV SCH ×2 (04:40→13:40)
[2019-10-02] MEDS: oxyCODONE/APAP 5/325MG (PERCOCET 5) TABLET PO PRN ×2 (06:30→16:35)
[2019-10-02] MEDS: CATHETER FLUSH 10 ML SYR IV SCH ×3 (06:30→23:28)
[2019-10-02] MEDS: LEVOTHYROXINE 100 MCG (LEVOTHROID) TAB PO SCH (06:30)
[2019-10-02 08:00] VITALS: BP 164/83
[2019-10-02] MEDS: DOCUSATE SODIUM 100 MG (COLACE) CAP PO SCH ×2 (09:49→21:28)
[2019-10-02] MEDS: CALCITONIN NASAL 200 INTLU/AC (FORTICAL) 3.7 ML BTL SCH (09:49)
[2019-10-02] MEDS: lisINopril 20 MG (PRINIVIL) TABLET PO SCH (09:49)
--- NOTE | 2019-10-02 10:40 | Physical Therapy Daily Note ---
PT Daily Note-Current Subjective Pt's family agreeable to PT session. States pt is unable to follow instruction and she lifts her mother at home. Discussed use of gait/transfer belt at home to assist her for safety and ease of transfers. Pain Comment: Pt unable to rate pain, grimacing and tenseness/rigidity throughout body Appearance Pt sitting up in recliner with dtr and visitor present upon arrival. At end of session, pt in bed with call light and bedside table within reach, Dtr and visitor present Mental Status Patient Orientation: Confused Transfers SCALE: Activities may be completed with or without assistive devices. 5-Aivqhnphkf-ndbtbnq completes the activity by him/herself with no assistance from a helper. 5-Set-up or Clean-up Assistance-helper sets up or cleans up; patient completes activity. Ethan assists only prior to or following the activity. 4-Supervision or Touching Assistance-helper provides verbal cues and/or touching/steadying and/or contact guard assistance as patient completes activity. Assistance may be provided throughout the activity or intermittently. 3-Partial/Moderate Assistance-helper does LESS THAN HALF the effort. Ethan lifts, holds or supports trunk or limbs, but provides less than half the effort. 2-Substantial/Maximal Assistance-helper does MORE THAN HALF the effort. Ethan lifts or holds trunk or limbs and provides more than half the effort. 3-Lpkzbkxgs-cubunr does ALL the effort. Patient does none of the effort to complete the activity. Or, the assistance of 2 or more helpers is required for the patient to complete the activity. If activity was not attempted, code reason: 7-Patient Refused. 9-Not Applicable-not attempted and the patient did not perform the activity b efore the current illness, exacerbation or injury. 10-Not Attempted due to Environmental Limitations-(lack of equipment, weather restraints, etc.). 88-Not Attempted due to Medical Conditions or Safety Concerns. Roll Left & Right (QC): 2 Sit to Lying (QC): 2 Sit to Stand (QC): 3 Chair/Fyn-rk-Kygue Xfer(QC): 3 (min to mod A and use of FWW) Pt unable to follow instruction, holds walker for sit to and from stand transfers, physical assist to place hands on walker and to release hands from walker Weight Bearing Right Lower Extremity: Right Weight Bearing/Tolerated Left Lower Extremity: Left Weight Bearing/Tolerated Gait Training Does the Patient Walk?: No and Walking Goal NOT indicated Treatments CG teaching, transfers, bed mobility Assessment Pt unable to follow instruction and with minimal communication PT Lime Mixer Tender Goals Lime Mixer Tender Goals PT [facility] Goals Time Frame: Oct 05, 2019 Roll Left & Right (QC): 2 Sit to Lying (QC): 2 Lying-Sitting on Side/Bed(QC): 2 Sit to Stand (QC): 2 Chair/Izi-it-Hhbjs Xfer(QC): 2 Toilet Transfer (QC): 2 Car Transfer (QC): 2 Does the Patient Walk: No and Walking Goal NOT indicated Walk 10 feet (QC): 9 Walk 50ft with 2 Turns (QC): 9 Walk 150 ft (QC): 9 Walking 10ft on Uneven Surface: 9 1 Step (curb) (QC): 9 4 Steps (QC): 9 12 Steps (QC): 9 Picking up an Object (QC): 9 Does the Pt use WC or Scooter?: Yes Type: Manual Type: N/A PT Plan Treatment/Plan Treatment Plan: Continue Plan of Care Treatment Plan: Bed Mobility, Education, Functional Activity Jean Pierre, Functional Strength, Safety, Therapeutic Exercise, Transfers Treatment Duration: Oct 05, 2019 Frequency: 5 times per week Estimated Hrs Per Day: .25 hour per day Patient and/or Family Agrees t: Yes Safety Risks/Education Patient Education: Transfer Techniques, Instructions to Caregiver, Safety Issues Teaching Recipient: Family Teaching Methods: Demonstration, Discussion Response to Teaching: Verbalize Understanding Time/GCodes Time In: 1021 Time Out: 1043 Total Billed Treatment Time: 22 Total Billed Treatment 1 visit, FA x22 min LAMBERTO FITZGERALD WAISTBAND SETTER LOCKSTITCH Oct 02, 2019 10:40
[2019-10-02 12:00] VITALS: BP 159/86
[2019-10-02 12:40] LABS: BUN/CREATININE RATIO 6; CALCIUM 8.4 MG/DL (8.5-10.1); CARBON DIOXIDE 26 MMOL/L (21-32); CHLORIDE 105 MMOL/L (98-107); GFR ESTIMATED > 60; GLUCOSE 105 MG/DL (70-105); POTASSIUM 3.4 MMOL/L (3.6-5.0); SODIUM 142 MMOL/L (135-145)
[2019-10-02] MEDS ORDERED: fentaNYL PATCH 25 MCG (DURAGESIC) TD SCH (16:30)
[2019-10-02 16:50] VITALS: BP 175/89
--- NOTE | 2019-10-02 18:07 | Progress Note ---
Subjective Subjective Date Seen by Provider: Oct 02, 2019 Time Seen by Provider: 18:01 74 yo F no overnight events PO intake is great- 100% for lunch. No issues. Pain is a little better controlled. Goal would be to stop po hydrocodone. SS working on placement. Review of Systems ROS Unable to Obtain: dementia General: No Chills HEENT: No Head Aches Pulmonary: No Dyspnea Cardiovascular: No: Chest Pain Gastrointestinal: No: Nausea, Vomiting Genitourinary: No Dysuria Objective Exam Vital Signs Vital Signs Date Time Temp Pulse Resp B/P (MAP) Pulse Ox O2 Delivery O2 Flow Rate FiO2 10/02/19 16:50 36.3 71 18 175/89 (117) 95 Room Air 10/02/19 15:13 95 Room Air 10/02/19 12:00 36.1 64 16 159/86 (110) 95 Room Air 10/02/19 11:14 96 Room Air 10/02/19 08:00 Room Air 10/02/19 08:00 36.2 60 16 164/83 (110) 97 Room Air 10/01/19 22:56 96 10/01/19 20:00 37.0 66 18 170/82 (111) 96 Room Air 10/01/19 20:00 Room Air I & O 10/02/19 07:00 Intake Total 1280 ml Balance 1280 ml General Appearance: No Apparent Distress HEENT: PERRL/EOMI Neck: Non Tender, Supple Respiratory: Chest Non Tender, Normal Breath Sounds Cardiovascular: Regular Rate, Rhythm Gastrointestinal: Non Tender, Soft Rectal: Deferred Back: Vertebral Tenderness (low back) Extremity: Non Tender, No Calf Tenderness Neurologic/Psychiatric: Alert, Other (not oriented x 3) Skin: Warm/Dry Results Lab Laboratory Tests 10/02/19 12:04: Sodium Level 142, Potassium Level 3.4L, Chloride Level 105, Carbon Dioxide Level 26, Anion Gap 11, Blood Urea Nitrogen 5L, Creatinine 0.80, Estimat Glomerular Filtration Rate > 60, BUN/Creatinine Ratio 6, Glucose Level 105, Calcium Level 8.4L Microbiology 09/30/19 Urine Culture - Preliminary, Resulted Klebsiella pneumoniae Proteus mirabilis Assessment/Plan Assessment/Plan Admission Dx intractable back pain Assessment and Plan 09/30/19- admitted 10/01/19- Pain appears to be improved with fentanyl patch- if she is too s omnolent will decrease dosage. -replacing potassium -treating UTI, awaiting culture/sensitivity. -TSH significantly elevated- patient does not take her levothyroxine as prescribed. Refuses pills at home. 10/02/19- klebsiella, proteus on urine culture- will stay with rocephin until discharge then she will complete 7days with cefdinir (minus days of rocephin); work on decreasing hydrocodone use. Potassium is improved with replacement and diet. -since po improved d/c IVF DVT -SCDs. Physical therapy to continue working with patient while inpatient. Dispo: ---dementia is progressing and I suspect patient will continue to decline and prognosis is poor. Rate of decline is the variable. I have been discussing this with patient's daughter over the past year and she has acknowledged the increased rate of decline. --case management is working on placement. Patient would be ready for discharge 10/03/19 if placement is found. Problems: (1) Hypothyroidism Qualifiers: Qualified Codes: E89.0 - Postprocedural hypothyroidism Assessment & Plan: continue levothyroxine (2) Hypertension Qualifiers: Qualified Codes: I10 - Essential (primary) hypertension Assessment & Plan: continue lisinopril (3) Alzheimer's dementia with behavioral disturbance Qualifiers: Qualified Codes: G30.9 - Alzheimer's disease, unspecified; F02.81 - Dementia in other diseases classified elsewhere with behavioral disturbance (4) L2 vertebral fracture Qualifiers: (5) Hypokalemia (6) UTI (urinary tract infection) Qualifiers: Qualified Codes: N30.00 - Acute cystitis without hematuria Admission Dx intractable back pain Clinical Quality Measures Admission Status Admission Dx intractable back pain DVT/VTE Risk/Contraindication: Risk Factor Score Per Nursin RFS Level Per Nursing on Admit: 2=Moderate JULIO MELTON MD Oct 02, 2019 18:07
[2019-10-02 20:30] VITALS: BP 179/92
[2019-10-02] MEDS: QUEtiapine 25 MG (SEROquel) TAB IMMEDIATE RELEASE PO SCH (21:28)
[2019-10-02] MEDS: cefTRIAXone FOR IV USE 1,000 MG in WATER (STERILE) FOR INJECTION 10 ML IV SCH (23:28)
[2019-10-03] VITALS: BP 137/78
[2019-10-03 04:00] VITALS: BP 144/89
[2019-10-03] MEDS: CATHETER FLUSH 10 ML SYR IV SCH (06:39)
[2019-10-03] MEDS: LEVOTHYROXINE 100 MCG (LEVOTHROID) TAB PO SCH (06:39)
[2019-10-03] MEDS: oxyCODONE/APAP 5/325MG (PERCOCET 5) TABLET PO PRN ×2 (07:27→13:56)
[2019-10-03 08:00] VITALS: BP 150/89
[2019-10-03] MEDS: DOCUSATE SODIUM 100 MG (COLACE) CAP PO SCH (08:55)
[2019-10-03] MEDS: lisINopril 20 MG (PRINIVIL) TABLET PO SCH (08:55)
[2019-10-03] MEDS: CALCITONIN NASAL 200 INTLU/AC (FORTICAL) 3.7 ML BTL SCH (08:58)
--- NOTE | 2019-10-03 10:27 | Physical Therapy Daily Note ---
PT Daily Note-Current Subjective Pt's daughter agreeable to PT session, pt willing to get up out of bed. Pain Comment: unable to rate pain, pt demo grimacing and guarding Appearance Pt in bed upon arrival. At end of session, pt sitting up in recliner with call light and bedside table within reach. Pt's dtr present during entire tx session. Mental Status Patient Orientation: Confused shahla wick Transfers SCALE: Activities may be completed with or without assistive devices. 6-Jqgmflrqhv-nkasjfu completes the activity by him/herself with no assistance from a helper. 5-Set-up or Clean-up Assistance-helper sets up or cleans up; patient completes activity. [place] assists only prior to or following the activity. 4-Supervision or Touching Assistance-helper provides verbal cues and/or touching/steadying and/or contact guard assistance as patient completes activity. Assistance may be provided throughout the activity or intermittently. 3-Partial/Moderate Assistance-helper does LESS THAN HALF the effort. [place] lifts, holds or supports trunk or limbs, but provides less than half the effort. 2-Substantial/Maximal Assistance-helper does MORE THAN HALF the effort. [place] lifts or holds trunk or limbs and provides more than half the effort. 0-Riwxsoqbd-acomza does ALL the effort. Patient does none of the effort to complete the activity. Or, the assistance of 2 or more helpers is required for the patient to complete the activity. If activity was not attempted, code reason: 7-Patient Refused. 9-Not Applicable-not attempted and the patient did not perform the activity before the current illness, exacerbation or injury. 10-Not Attempted due to Environmental Limitations-(lack of equipment, weather restraints, etc.). 88-Not Attempted due to Medical Conditions or Safety Concerns. Roll Left & Right (QC): 2 Lying to Sitting/Side of Bed(Q: 3 Sit to Stand (QC): 3 Chair/Sww-hh-Mksxb Xfer(QC): 3 pt with difficulty following instruction, pt sitting EOB without physical assist to begin with then began lightly retro pushing about 2 minutes before relaxing to be able to bring wt forward to stand. Weight Bearing Right Lower Extremity: Right Weight Bearing/Tolerated Left Lower Extremity: Left Weight Bearing/Tolerated Treatments bed mobility, transfers, CG teaching, balance, strength, activity tolerance, functional mobility Assessment Pt unable to follow instruction, at times is able to follow tactile cueing, pt is more alert today than demo yesterday, CG would benefit from more hands on transfer and mobility training to A her mother at home PT Lifestyle Coordinator Goals Skilled Nursing Goals PT Lifestyle Coordinator Goals Time Frame: Oct 05, 2019 Roll Left & Right (QC): 2 Sit to Lying (QC): 2 Lying-Sitting on Side/Bed(QC): 2 Sit to Stand (QC): 2 Chair/Xox-cl-Qkiai Xfer(QC): 2 Toilet Transfer (QC): 2 Car Transfer (QC): 2 Does the Patient Walk: No and Walking Goal NOT indicated Walk 10 feet (QC): 9 Walk 50ft with 2 Turns (QC): 9 Walk 150 ft (QC): 9 Walking 10ft on Uneven Surface: 9 1 Step (curb) (QC): 9 4 Steps (QC): 9 12 Steps (QC): 9 Picking up an Object (QC): 9 Does the Pt use WC or Scooter?: Yes Type: Manual Type: N/A PT Plan Treatment/Plan Treatment Plan: Continue Plan of Care Treatment Plan: Bed Mobility, Education, Functional Activity [place], Functional Strength, Safety, Therapeutic Exercise, Transfers Treatment Duration: Oct 05, 2019 Frequency: 5 times per week Estimated Hrs Per Day: .25 hour per day Patient and/or Family Agrees t: Yes Safety Risks/Education Patient Education: Transfer Techniques, Correct Positioning, Instructions to Caregiver, Safety Issues Teaching Recipient: Patient, Family Teaching Methods: Demonstration, Discussion Response to Teaching: Verbalize Understanding (CG), Unable to Return Demonstration (patient), Unable to Comprehend (patient) Discharge Recommendations Therapy Discharge Recommendati: 24 Hour Supervision, Other, See Comments (would benefit from PT for CG training in transfer and mobility techniques) Equpiment Recommendations-D/C: Hospital Bed Time/GCodes Time In: 1003 Time Out: 1028 Total Billed Treatment Time: 25 Total Billed Treatment 1 visit, FA x25 min LAMBERTO FITZGERALD PTA Oct 03, 2019 10:27
--- NOTE | 2019-10-03 11:05 | NUR ---
Important Message from Medicare presented, reviewed, signed and placed in patient chart. Patient and daughter voiced no intention to appeal and deny any needs or further questions at this time.
[2019-10-03 12:00] VITALS: BP 137/83
[2019-10-03] MEDS ORDERED: OXYC1TAB87 PO (13:20)
[2019-10-03] MEDS ORDERED: FENT1PAT8 TD (13:20)
--- NOTE | 2019-10-03 13:24 | D/C HH Face to Face Order ---
D/C Face to Face Orders Reconcile Patient Problems Problems Reviewed?: Yes Instructions for Patient [facility] Patient Instructions/FollowUp: follow up at [facility] in 2 weeks Physician to follow Patient: Justo Melton MD Discharge Diet for Home: Regular Diet (cut up foods into small bites) Patient Data-Allergies,Ht & Wt Patient Allergies: Coded Allergies: morphine (Unverified Adverse Reaction, Severe, HALLUCINATIONS, 07/24/19) Height (Feet): 5 Height (Inches): 3.00 Weight (Pounds): 145 Weight (Ounces): 0.0 Home Health Need/Face to Face Date of Face to Face: Oct 03, 2019 Clinical Findings: Generalized weakness and fatigue, Instability, Muscle weakness, Pain with ambulation, Unsteady gait, Other-list in note (progressing dementia) I have seen Pt [id number]: Yes Discharged To: Home Diagnosis/Conditions: L2 Compression fracture dementia weakness/unsteady gait deconditioning hypothyroidism Patient is Homebound due to: CognItive deficits, [place] fall risk due to instabilty, Muscle weakness Homebound Status Due to the above stated illness, injury or surgical procedure (medical condition or diagnosis) and associated clinical findings, the patient is homebound because of his/her inability to leave home except with aid of a supportive device and/or person AND leaving the home requires a considerable and taxing effort or is medically contraindicated. Pt req the following assistanc: Aid of another person, [place] Home Health Nursing Orders Home Health Services Order: Nursing Services, Poultry Barn Manager-Evaluate & Treat, Physical Therapy-Evaluate & Treat Therapy Orders Therapy Orders: OT (must have SN or PT order), Physical Therapy Therapy Specific Orders: Eval assistive deivces, Teach strategies/cognitive deficits, Teach enviro modifications/safety, Gait training, Increase strength/endurance Certify Stmt I certify that this patient is under my care and that I, a physician; a restaurant assistant working with me, had a face to face encounter that -meets the physician face to face encounter requirements with this patient as dated. JUSTO MELTON MD Oct 03, 2019 13:24
[2019-10-03] MEDS ORDERED: Calcitonin (13:26)
--- NOTE | 2019-10-03 13:27 | Discharge Summary ---
Discharge Summary Hospital Course Problems/Dx: (1) Hypothyroidism Qualifiers: Qualified Codes: E89.0 - Postprocedural hypothyroidism (2) Hypertension Qualifiers: Qualified Codes: I10 - Essential (primary) hypertension (3) Alzheimer's dementia with behavioral disturbance Qualifiers: Qualified Codes: G30.9 - Alzheimer's disease, unspecified; F02.81 - Dementia in other diseases classified elsewhere with behavioral disturbance (4) L2 vertebral fracture Status: Acute Qualifiers: (5) Hypokalemia (6) UTI (urinary tract infection) Qualifiers: Qualified Codes: N30.00 - Acute cystitis without hematuria Hospital Course Date of Admission: Sep 30, 2019 at 13:00 Admission Diagnosis : Family Physician/Provider: Justo Melton MD Date of Discharge: 10/03/19 Discharge Diagnosis: [ ] Hospital Course: [ ] Labs and Pending Lab Test: Microbiology 09/30/19 Urine Culture - Final, Complete Klebsiella pneumoniae Proteus mirabilis Home Meds Active [Calcitonin] 3.7 ML Soln 1 [place] NA DAILY alternate nostrils daily Percocet 5-325 mg Tablet (Oxycodone HCl/Acetaminophen) 1 Each Tablet 1 Tab PO Q8H PRN Fentanyl Patch 25 MCG (Fentanyl) 1 Each Patch.td72 25 Mcg TD Q72H Reported Quetiapine Fumarate 50 Mg Tablet 50 Mg PO 1900 Lisinopril 20 Mg Tablet 20 Mg PO DAILY Levothyroxine Sodium 100 Mcg Tablet 100 Mcg PO DAILY Meloxicam 7.5 Mg Tablet 7.5 Mg PO DAILY PRN Calcium + Vitamin D Tablet (Calcium Carbonate/Vitamin D3) 1 Each Tablet 1 Tab PO DAILY Discharge Physical Examination Vital Signs Vital Signs Date Time Temp Pulse Resp B/P (MAP) Pulse Ox O2 Delivery O2 Flow Rate FiO2 10/03/19 08:00 36.6 74 18 150/89 (109) 96 Room Air Allergies: Coded Allergies: morphine (Unverified Adverse Reaction, Severe, HALLUCINATIONS, 07/24/19) Discharge Summary Date of Admission Sep 30, 2019 at 13:00 Date of Discharge Discharge Diagnosis (1) Hypothyroidism Assessment & Plan: continue levothyroxine Qualifiers: Qualified Codes: E89.0 - Postprocedural hypothyroidism (2) Hypertension Assessment & Plan: continue lisinopril Qualifiers: Qualified Codes: I10 - Essential (primary) hypertension (3) Alzheimer's dementia with behavioral disturbance Qualifiers: Qualified Codes: G30.9 - Alzheimer's disease, unspecified; F02.81 - Dementia in other diseases classified elsewhere with behavioral disturbance (4) L2 vertebral fracture Status: Acute Qualifiers: (5) Hypokalemia (6) UTI (urinary tract infection) Qualifiers: Qualified Codes: N30.00 - Acute cystitis without hematuria Clinical Quality Measures DVT/VTE Risk/Contraindication: Risk Factor Score Per Nursin RFS Level Per Nursing on Admit: 2=Moderate JUSTO MELTON MD Oct 03, 2019 13:27
[2019-10-03 14:10] VITALS: BP 137/83
[2019-10-03] MEDS ORDERED: FENTANYL PATCH REMOVAL TP SCH (18:14)
[2019-10-05] MEDS ORDERED: FENTANYL PATCH REMOVAL TP SCH (16:29)
== END 2019-10-03 14:10 | disposition home health service (06) | DRG 552 ==
LOC: EDUNIT# 10:19 → ER 10:20 → 4TH 13:00
PROVIDERS: ADMIT Family Medicine; ATTEND Family Medicine
DX: S32.029A Unspecified fracture of second lumbar vertebra, initial encounter for closed fracture (principal); G30.9 Alzheimer's disease, unspecified; F02.81 Dementia in other diseases classified elsewhere, unspecified severity, with behavioral disturbance; N30.00 Acute cystitis without hematuria; E87.6 Hypokalemia; I10 Essential (primary) hypertension; E89.0 Postprocedural hypothyroidism; K21.9 Gastro-esophageal reflux disease without esophagitis; M19.91 Primary osteoarthritis, unspecified site; B96.1 Klebsiella pneumoniae [K. pneumoniae] as the cause of diseases classified elsewhere; Z96.642 Presence of left artificial hip joint; Z87.891 Personal history of nicotine dependence; Z85.3 Personal history of malignant neoplasm of breast; Z92.21 Personal history of antineoplastic chemotherapy; Z92.3 Personal history of irradiation; W01.198A Fall on same level from slipping, tripping and stumbling with subsequent striking against other object, initial encounter; Y92.002 Bathroom of unspecified non-institutional (private) residence as the place of occurrence of the external cause
CPT/HCPCS: 36415; 70450; 72125; 72131; 72170; 80048; 80053; 81000; 84443; 85025; 87077; 87088; 87186; 94760

== ENCOUNTER 2019-11-10 16:29 | Inpatient (IN) | payer MEDICARE ==
[~2019-11-10] VITALS: Ht 167.7 cm; Wt 67.4 kg
[~2019-11-10 16:29] MED LIST changes: +Calcitonin; +DOCU-143 PO; +FENT1PAT8 TD; +OXYC1TAB87 PO; +QUET50TA55 PO
[2019-11-10 18:14] LABS: BILIRUBIN,URINE NEGATIVE (NEGATIVE); CLARITY,URINE CLEAR; COLOR,URINE YELLOW; GLUCOSE, URINE (UA) NEGATIVE (NEGATIVE); KETONES,URINE TRACE (NEGATIVE); LEUKOCYTE ESTERASE ,URINE 2+ (NEGATIVE); NITRITE,URINE POSITIVE (NEGATIVE); PH,URINE 7.5 (5-9); PROTEIN,URINE 2+ (NEGATIVE)
[2019-11-10 18:20] LABS: BACTERIA,URINE LARGE /HPF; SQUAMOUS EPITHELIAL CELL,UR RARE /HPF; WBC,URINE 25-50 /HPF; WHITE BLOOD CELL CASTS, URINE RARE /LPF
[2019-11-10] MEDS ORDERED: LACTATED RINGERS 1,000 ML IV ONE (18:23)
[2019-11-10] MEDS ORDERED: cefTRIAXone FOR IV USE 1,000 MG in WATER (STERILE) FOR INJECTION 10 ML IV ONE (18:30)
--- NOTE | 2019-11-10 18:34 | ED General ---
General Chief Complaint: - Urinary Stated Complaint: DIFF URINATING/CONFUSION Nursing Triage Note: DAUGHTER STATES HER MOTHER HASN'T URINATED TODAY, STATES YESTERDAY URINE, DARK WITH STRONG SMELL. Nursing Sepsis Screen: No Definite Risk Source of Information: Family (DAUGHTER/QUALITY ASSURANCE SUPERVISOR CHASSIS) Exam Limitations: Other (PT WITH DEMENTIA AND IS NOT ANSWERING QUESTIONS OR FOLLOWING COMMANDS) History of Present Illness Date Seen by Provider: Nov 10, 2019 Time Seen by Provider: 18:20 Initial Comments PT ARRIVES VIA POV FROM HOME WITH DAUGHTER--PT LIVES WITH DAUGHTER DAUGHTER STATES THAT PT HAS BEEN HAVING TROUBLE URINATING, AND HAS NOT BEEN PEEING FOR THE LAST COUPLE OF DAYS ONLY VOIDED ONCE YESTERDAY AFTERNOON/EVENING AND HAS NOT URINATED SINCE THEN PT HAS ALZHEIMERS' / DEMENTIA BUT HAS BEEN MORE CONFUSED AND HALLUCINATING MORE THAN NORMAL FOR THE LAST COUPLE OF DAYS STATES SHE HAS BEEN EATING HER CLOTHING AND LICKING HER WHEELCHAIR. HAS NOT BEEN EATING MUCH--TODAY SHE WAS EATING PIZZA BUT WAS "EATING HER PANTS STRING INSTEAD" NO FEVER NO VOMITING NO BM FOR 3 DAYS, BUT NORMALLY ONLY HAS A BM EVERY 2-3 DAYS DAUGHTER STATES SHE 'HAS HAD 3 UTI'S IN THE LAST MONTH", AND JUST FINISHED HER 3RD ROUND OF ANTIBIOTICS ON Monday11/04/19--AMOXICILLIN ON REVIEW, PT WAS TREATED 07/23/19 WITH MACROBID, 08/26/19 WITH MACROBID AND 10/28/19 WITH AMOXIL 800 MG ( LIQUID) BID X 7 DAYS. PT HAS CHRONIC URINARY INCONTINENCE, AND DAUGHTER HAS REPORTED THAT "SHE DOESN'T EVER DRINK MUCH OR URINATE VERY MUCH" PT HAD URETHRAL PROLAPSE-DX 07/2019 WHEN IT WAS NOTED TO BE BLEEDING AND APPEARED TO BE A MASS, AND WAS REPAIRED BY DR. FABIAN. WAS ADMITTED 09/30-10/03/19 FOR L2 VERTEBRAL FRACTURE. STILL ON FENTANYL PATCHES FOR THAT PCP: DR. Eleonora MELTON Allergies and Home Medications Allergies Coded Allergies: morphine (Unverified Adverse Reaction, Severe, HALLUCINATIONS, 07/24/19) Home Medications Calcium Carbonate/Vitamin D3 1 Each Tablet, 1 TAB PO DAILY, (Reported) Fentanyl 1 Each Patch.td72, 25 MCG TD Q72H Prescribed by: JULIO MELTON on 10/03/19 1320 Levothyroxine Sodium 100 Mcg Tablet, 100 MCG PO DAILY, (Reported) Lisinopril 20 Mg Tablet, 20 MG PO DAILY, (Reported) Meloxicam 7.5 Mg Tablet, 7.5 MG PO DAILY PRN for ARTHRITIS PAIN, (Reported) Oxycodone HCl/Acetaminophen 1 Each Tablet, 1 TAB PO Q8H PRN for PAIN-MODERATE (5-7) Prescribed by: JULIO MELTON on 10/03/19 1320 Quetiapine Fumarate 50 Mg Tablet, 1-2 TAB PO DAILY PRN for AGITATION, (Reported) TAKE 1-2 TABLETS BY MOUTH ONCE DAILY AT 6PM NEEDED [Calcitonin] 3.7 ML SOLN, 1 SPRAY NA DAILY alternate nostrils daily Prescribed by: JULIO MELTON on 10/03/19 1326 Patient Home Medication List Home Medication List Reviewed: Yes Review of Systems Review of Systems Constitutional: No fever Respiratory: No cough Gastrointestinal: constipation, loss of appetite; No vomiting Genitourinary: see HPI, decreased output Psychiatric/Neurological: See HPI Past Yjgtwkf-Evwlzw-Ocgadu Hx Patient Social History Alcohol Use: Denies Use Recreational Drug Use: No Smoking Status: Former Smoker Type Used: Cigarettes Former Smoker, Quit: Sep 30, 1981 2nd Hand Smoke Exposure: No Recent Foreign Travel: No Contact w/Someone Who Travel: No Recent Infectious Disease Expo: No Recent Hopitalizations: No Immunizations Up To Date Tetanus Booster (TDap): Less than 5yrs PED Vaccines UTD: No Date of Pneumonia Vaccine: Jul 16, 2019 Date of Influenza Vaccine: Jul 16, 2019 Seasonal Allergies Seasonal Allergies: No Past Medical History Surgeries: Yes (REPAIR OF URETHRAL PROLAPSE 07/2019;L BREAST LUMPECTOMY/SENTINAL NODE BX ) Bladder Surgery, Breast, Gallbladder, Hysterectomy, Joint Replacement, Lumpectomy, Orthopedic, Thyroidectomy Respiratory: No Cardiac: Yes Hypertension 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, 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 Sexually Transmitted Disease: No HIV/AIDS: No Genitourinary: Yes (URETHRAL PROLAPSE REPAIR 07/2019) UTI-Chronic Gastrointestinal: Yes Gastroesophageal Reflux, Chronic Constipation Musculoskeletal: Yes (LEFT HIP REPLACEMENT FOR ARTHRITIS 2013; L2 VERTEBRAL FX 09/2019) Arthritis, Fractures Endocrine: Yes (MULTINODULAR GOITER--S/P THYROIDECTOMY 12/2016) Hypothyroidsim HEENT: Yes (DENTURES) Loss of Vision: Denies Hearing Impairment: Denies Cancer: Yes (LEFT BREAST CANCER DX 2009--S/P LUMPECTOMY AND SENTINEL NODE BIOPSY) Breast Did You Recieve Any Treatments: Yes What Type of Treatment Did You: Chemotherapy, Radiation, Surgical Intervention Psychosocial: No Integumentary: No Blood Disorders: No Adverse Reaction/Blood Tranf: No (N/A) Family Medical History Family history: Arthritis 03 FATHER 03 MOTHER 09 BROTHER 09 SISTER No Family History of: Abdominal aortic aneurysm Alcoholism Cancer Family history: Alzheimer's disease Family history: Asthma Family history: Breast disease Family history: Cardiovascular disease Family history: Diabetes mellitus Family history: Gastrointestinal disease Family history: Hypertension Family history: Thyroid disorder Hereditary disease History of - respiratory disease Kidney disease Myocardial infarction Parkinson's disease Prostate cancer Psychotic disorder Seizure disorder Stroke Diabetes, Stroke PSH: -LEFT BREAST LUMPECTOMY WITH SENTINAL LYMPH NODE BIOPSY 2009 -PORT PLACEMENT 2009 -THROIDECTOMY 12/2016 -LEFT HIP REPLACEMENT 2013 -URETHRAL PROLAPSE REPAIR 07/2019 Physical Exam Vital Signs Vital Signs - First Documented 11/10/19 17:38 Temp 37.2 Pulse 102 Resp 20 B/P (MAP) 122/57 (78) Pulse Ox 94 O2 Delivery Room Air Capillary Refill : Less Than 3 Seconds Height, Weight, BMI Height: 5'3.00" Weight: 145lbs. 0.0oz. 65.124886cf; 24.00 BMI Method:Stated General Appearance: No Apparent Distress, WD/WN, Other (AWAKE, ALERT/LOOKING AR OUND, BUT IS NOT TALKING OR ANSWERING QUESTIONS OR FOLLOWING COMMANDS. DOES NOT APPEAR TO BE IN ANY DISCOMFORT OR DISTRESS. ) Neck: Normal Inspection Respiratory: Normal Breath Sounds, No Accessory Muscle Use, No Respiratory Distress Cardiovascular: Regular Rate, Rhythm, No Edema, No Murmur Gastrointestinal: Non Tender, Soft Extremity: Normal Range of Motion, No Pedal Edema Neurologic/Psychiatric: Alert, No Motor/Sensory Deficits (GROSSLY INTACT--SPONTANEOUSLY MOVING ALL EXTREMITIES), Other (NOT TALKING OR FOLLOWING COMMANDS) Skin: Normal Color, Warm/Dry Focused Exam Lactate Level 11/10/19 18:40: Lactic Acid Level 1.37 Progress/Results/Core Measures Suspected Sepsis Recent Fever Within 48 Hours: No Infection Criteria Present: None New/Unexplained Altered Menta: No Sepsis Screen: No Definite Risk SIRS Temperature: Pulse: 102 Respiratory Rate: 20 Laboratory Tests 11/10/19 18:40: White Blood Count 10.3 11/11/19 05:23: White Blood Count 7.2 Blood Pressure 122 /57 Mean: 78 11/10/19 18:40: Lactic Acid Level 1.37 Laboratory Tests 11/10/19 18:40: Creatinine 0.88, INR Comment 1.2, Platelet Count 272, Total Bilirubin 0.6 11/11/19 05:23: Creatinine 0.69, Platelet Count 242, Total Bilirubin 0.6 Results/Orders Lab Results Laboratory Tests Test 11/10/19 18:08 11/10/19 18:40 11/11/19 05:23 Range/Units Urine Color YELLOW Urine Clarity CLEAR Urine pH 7.5 5-9 Urine Specific [employer] [place] 1.015 L 1.016-1.022 Urine Protein 2+ H NEGATIVE Urine Glucose (UA) NEGATIVE NEGATIVE Urine Ketones TRACE H NEGATIVE Urine Nitrite POSITIVE NEGATIVE Urine Bilirubin NEGATIVE NEGATIVE Urine Urobilinogen 1.0 < = 1.0 MG/DL Urine Leukocyte Esterase 2+ H NEGATIVE Urine RBC (Auto) NEGATIVE NEGATIVE Urine RBC NONE /HPF Urine WBC 25-50 H /HPF Urine Squamous Epithelial Cells RARE /HPF Urine Crystals NONE /LPF Urine Bacteria LARGE H /HPF Urine Casts PRESENT /LPF Urine Hyaline Casts 2-5 H /LPF Urine White Blood Cell Casts RARE H /LPF Urine Mucus SMALL H /LPF Urine Culture Indicated YES White Blood Count 10.3 7.2 4.3-11.0 10^3/uL Red Blood Count 4.08 L 3.48 L 4.35-5.85 10^6/uL Hemoglobin 12.8 10.9 L 11.5-16.0 G/DL Hematocrit 38 32 L 35-52 % Mean Corpuscular Volume 93 93 80-99 FL Mean Corpuscular Hemoglobin 31 31 25-34 PG Mean Corpuscular Hemoglobin Concent 34 34 32-36 G/DL Red Cell Distribution Width 12.9 12.7 10.0-14.5 % Platelet Count 272 242 130-400 10^3/uL Mean Platelet Volume 10.0 10.4 7.4-10.4 FL Neutrophils (%) (Auto) 73 61 42-75 % Lymphocytes (%) (Auto) 13 21 12-44 % Monocytes (%) (Auto) 13 H 17 H 0-12 % Eosinophils (%) (Auto) 0 2 0-10 % Basophils (%) (Auto) 0 0 0-10 % Neutrophils # (Auto) 7.5 4.4 1.8-7.8 X 10^3 Lymphocytes # (Auto) 1.4 1.5 1.0-4.0 X 10^3 Monocytes # (Auto) 1.4 H 1.2 H 0.0-1.0 X 10^3 Eosinophils # (Auto) 0.0 0.1 0.0-0.3 10^3/uL Basophils # (Auto) 0.0 0.0 0.0-0.1 10^3/uL Prothrombin Time 15.4 H 12.2-14.7 SEC INR Comment 1.2 0.8-1.4 Activated Partial Thromboplast Time 34 24-35 SEC Sodium Level 140 139 135-145 MMOL/L Potassium Level 3.3 L 3.1 L 3.6-5.0 MMOL/L Chloride Level 102 105 98-107 MMOL/L Carbon Dioxide Level 24 26 21-32 MMOL/L Anion Gap 14 8 5-14 MMOL/L Blood Urea Nitrogen 22 H 14 7-18 MG/DL Creatinine 0.88 0.69 0.60-1.30 MG/DL Estimat Glomerular Filtration Rate > 60 > 60 BUN/Creatinine Ratio 25 20 Glucose Level 108 H 104 70-105 MG/DL Lactic Acid Level 1.37 0.50-2.00 MMOL/L Calcium Level 9.6 8.5 8.5-10.1 MG/DL Corrected Calcium 9.6 8.9 8.5-10.1 MG/DL Magnesium Level 1.7 1.6-2.4 MG/DL Total Bilirubin 0.6 0.6 0.1-1.0 MG/DL Aspartate Amino Transf (AST/SGOT) 16 14 5-34 U/L Alanine Aminotransferase (ALT/SGPT) 13 9 0-55 U/L Alkaline Phosphatase 70 62 40-136 U/L Total Protein 7.7 6.5 6.4-8.2 GM/DL Albumin 4.0 3.5 3.2-4.5 GM/DL My Orders Orders - DARRYL DSOUZA DO Cbc With Automated Diff (11/10/19 18:21) Comprehensive Metabolic Panel (11/10/19 18:21) Blood Culture (11/10/19 18:21) Sputum Culture (11/10/19 18:21) Protime With Inr (11/10/19 18:21) Partial Thromboplastin Time (11/10/19 18:21) Chest 1 View, Ap/Pa Only (11/10/19 18:21) Ed Iv/Invasive Line Start (11/10/19 18:21) Ed Iv/Invasive Line Start (11/10/19 18:21) Vital Signs Adult Sepsis Patie Q15M (11/10/19 18:21) O2 (11/10/19 18:21) Remove Rings In Anticipation O (11/10/19 18:21) Lactic Acid Analyzer (11/10/19 18:21) Influenza A And B Antigens (11/10/19 18:21) Catheter(Urinary) Insert & Ass 03,15 (11/10/19 18:21) Monitor-Rhythm Ecg Trace Only (11/10/19 18:21) Magnesium (11/10/19 18:21) Ceftriaxone For Iv Use (Rocephin For I (11/10/19 18:30) Ed Iv/Invasive Line Start (11/10/19 18:23) Lactated Ringers (Lr 1000 Ml Iv Solution (11/10/19 18:23) Cefepime Injection (Maxipime Injection) (11/10/19 18:45) Cefepime Injection (Maxipime Injection) (11/10/19 19:25) Water (Sterile) For Injection (Sterile W (11/10/19 19:31) Vital Signs/I&O 11/10/19 11/10/19 11/10/19 11/11/19 21:21 21:30 22:38 00:39 Temp 37.2 36.9 36.7 Pulse 102 82 78 Resp 20 18 18 B/P (MAP) 122/57 (78) 141/69 103/63 (76) Pulse Ox 94 96 97 O2 Delivery Room Air Room Air Room Air 11/11/19 11/11/19 11/11/19 00:40 04:00 05:21 Temp 36.7 36.8 36.8 Pulse 78 81 81 Resp 18 18 18 B/P (MAP) 103/63 (76) 135/92 (106) 135/92 (106) Pulse Ox 97 92 92 11/11/19 00:00 Intake Total 10 ml Balance 10 ml Capillary Refill : Less Than 3 Seconds Blood Pressure Mean: 78 Progress Note : Progress Note TSE CATHETER PLACED. ONLY 25 ML URINE OUTPUT DURING ER STAY ( AFTER INITIAL IN/OUT CATH WAS DONE ON PT'S ARRIVAL ) NO DETERIORATION IN PT'S CONDITION PT DOES APPEAR TO BE A LITTLE MORE ANIMATED AND A LITTLE MORE TALKATIVE AT TIME OF ADMIT. REVIEWED PREVIOUS URINE CULTURE RESULTS --WILL TREAT EMPIRICALLY WITH CEFEPIME, UNTIL CULTURES ARE COMPLETE Diagnostic Imaging Comments CXR--NO ACUTE PROCESS, CHRONIC CHANGES, PER RADIOLOGIST REPORT AT 1944 Reviewed: Reviewed by Me Departure Communication (Admissions) 2008--SPOKE WITH DR. DOVE, ACCEPTS PT FOR ADMIT Impression Primary Impression: UTI (urinary tract infection) Additional Impressions: Dehydration Dementia INCREASED CONFUSION AND BEHAVIOR DISTURBANCE Failure of outpatient treatment Hypokalemia Disposition: ADMITTED INPATIENT Condition: Stable Admissions Decision to Admit Reason: Admit from ER (General) Decision to Admit/Date: Nov 10, 2019 Time/Decision to Admit Time: 20:10 Departure-Patient Inst. Referrals: JULIO MELTON MD (PCP/Family) Primary Care Physician DARRYL DSOUZA DO Nov 10, 2019 18:34
[2019-11-10] MEDS ORDERED: CEFEPIME INJECTION 2,000 MG in WATER (STERILE) FOR INJECTION 10 ML IV ONE (18:45)
[2019-11-10 18:50] LABS: BASOPHILS % (AUTO) 0 % (0-10); EOSINOPHILS % (AUTO) 0 % (0-10); HEMATOCRIT 38 % (35-52); HEMOGLOBIN 12.8 G/DL (11.5-16.0); LYMPHOCYTES # (AUTO) 1.4 X 10^3 (1.0-4.0); LYMPHOCYTES % (AUTO) 13 % (12-44); MEAN CORPUSCULAR HEMOGLOBIN 31 PG (25-34); MEAN CORPUSCULAR HGB CONC 34 G/DL (32-36); MEAN CORPUSCULAR VOLUME 93 FL (80-99); MONOCYTES # (AUTO) 1.4 X 10^3 (0.0-1.0); MONOCYTES % (AUTO) 13 % (0-12); NEUTROPHILS # (AUTO) 7.5 X 10^3 (1.8-7.8); NEUTROPHILS % (AUTO) 73 % (42-75); PLATELET COUNT 272 10^3/uL (130-400); RED CELL DISTRIBUTION WIDTH 12.9 % (10.0-14.5); WHITE BLOOD COUNT 10.3 10^3/uL (4.3-11.0)
[2019-11-10 19:01] LABS: INR 1.2 (0.8-1.4); PROTHROMBIN TIME PATIENT 15.4 SEC (12.2-14.7)
[2019-11-10 19:08] LABS: ALANINE AMINOTRANSFERASE 13 U/L (0-55); ALKALINE PHOSPHATASE 70 U/L (40-136); BILIRUBIN,TOTAL 0.6 MG/DL (0.1-1.0); BUN/CREATININE RATIO 25; CALCIUM 9.6 MG/DL (8.5-10.1); CARBON DIOXIDE 24 MMOL/L (21-32); CHLORIDE 102 MMOL/L (98-107); CREATININE SERUM 0.88 MG/DL (0.60-1.30); GFR ESTIMATED > 60; GLUCOSE 108 MG/DL (70-105); MAGNESIUM 1.7 MG/DL (1.6-2.4); POTASSIUM 3.3 MMOL/L (3.6-5.0); SODIUM 140 MMOL/L (135-145); TOTAL PROTEIN 7.7 GM/DL (6.4-8.2)
--- NOTE | 2019-11-10 19:17 | Diagnostic Imaging Report ---
INDICATION: Confusion, UTI EXAMINATION: Chest 11/10/2019 FINDINGS: The heart is unremarkable. Pulmonary vasculature within normal limits. Lungs demonstrate chronic change with no focal infiltrates or effusions. No pneumothorax with the apices not completely seen due to the overlying chin. IMPRESSION: 1. Chronic change. No acute cardiopulmonary process. Dictated by: Dictated on workstation # [id number]
[2019-11-10] MEDS ORDERED: CEFEPIME 2 GM (MAXIPIME) VIAL ONE (19:25)
[2019-11-10] MEDS ORDERED: WATER (STERILE) FOR INJECTION 10 ML ONE (19:31)
[2019-11-10] MEDS ORDERED: D5 1/2 NS W/KCL 20 MEQ/L 1,000 ML IV ONE (22:15)
[2019-11-10] MEDS: D5 1/2 NS W/KCL 20 MEQ/L 1,000 ML IV SCH (22:20)
[2019-11-10 22:38] VITALS: BP 141/69
[2019-11-11] VITALS (8 sets, daily range): BP systolic 103–144; BP diastolic 63–92
[2019-11-11] MEDS ORDERED: ONDANSETRON 4 MG/2 ML (SDV) Z0FRAN IV PRN (03:45)
[2019-11-11] MEDS: D5 1/2 NS W/KCL 20 MEQ/L 1,000 ML IV SCH ×3 (05:11→19:10)
[2019-11-11 06:00] LABS: BASOPHILS % (AUTO) 0 % (0-10); EOSINOPHILS # (AUTO) 0.1 10^3/uL (0.0-0.3); EOSINOPHILS % (AUTO) 2 % (0-10); HEMATOCRIT 32 % (35-52); HEMOGLOBIN 10.9 G/DL (11.5-16.0); LYMPHOCYTES # (AUTO) 1.5 X 10^3 (1.0-4.0); LYMPHOCYTES % (AUTO) 21 % (12-44); MEAN CORPUSCULAR HEMOGLOBIN 31 PG (25-34); MEAN CORPUSCULAR HGB CONC 34 G/DL (32-36); MEAN CORPUSCULAR VOLUME 93 FL (80-99); MEAN PLATELET VOLUME 10.4 FL (7.4-10.4); MONOCYTES # (AUTO) 1.2 X 10^3 (0.0-1.0); MONOCYTES % (AUTO) 17 % (0-12); NEUTROPHILS # (AUTO) 4.4 X 10^3 (1.8-7.8); NEUTROPHILS % (AUTO) 61 % (42-75); PLATELET COUNT 242 10^3/uL (130-400); RED CELL DISTRIBUTION WIDTH 12.7 % (10.0-14.5); WHITE BLOOD COUNT 7.2 10^3/uL (4.3-11.0)
[2019-11-11 06:24] LABS: ALANINE AMINOTRANSFERASE 9 U/L (0-55); ALBUMIN 3.5 GM/DL (3.2-4.5); ALKALINE PHOSPHATASE 62 U/L (40-136); BILIRUBIN,TOTAL 0.6 MG/DL (0.1-1.0); BUN/CREATININE RATIO 20; CALCIUM 8.5 MG/DL (8.5-10.1); CARBON DIOXIDE 26 MMOL/L (21-32); CHLORIDE 105 MMOL/L (98-107); CREATININE SERUM 0.69 MG/DL (0.60-1.30); GFR ESTIMATED > 60; GLUCOSE 104 MG/DL (70-105); POTASSIUM 3.1 MMOL/L (3.6-5.0); SODIUM 139 MMOL/L (135-145); TOTAL PROTEIN 6.5 GM/DL (6.4-8.2)
[2019-11-11] MEDS ORDERED: CEFEPIME IV SCH (07:00)
[2019-11-11] MEDS ORDERED: WATER IV SCH (07:00)
[2019-11-11] MEDS: CEFEPIME INJECTION 1,000 MG in WATER (STERILE) FOR INJECTION 10 ML IV SCH ×2 (07:26→18:26)
[2019-11-11] MEDS ORDERED: FENT1PAT57 TD (11:44)
--- NOTE | 2019-11-11 12:50 | History & Physical ---
History of Present Illness History of Present Illness Reason for visit/HPI 74 yo F with progressing dementia admitted for worsening of confusion and behaviors related to a recurrent UTI. She was treated over a week ago for a UTI that amoxicillin would cover. Patient's dementia has made it difficult for her daughter to administer medications and care for her. But patient would not want to go to a custodial and her daughter is trying to honor her wishes by keeping her at home. As for this admission, patient was not eating or drinking much. She was attempting to eat her clothing and not acting herself. So she was brought to the ER. No reported fevers. Urine has been foul odor per daughter with de creased output. She does have incontinence and underwent urethral prolapse last year with Dr. Ramirez. She could decompensate quickly and/or have a resistant bacteria causing her infection so she was admitted to further workup. Date of Admission Nov 10, 2019 at 20:10 Date Seen by a Provider: Nov 11, 2019 Time Seen by a Provider: 12:48 I consulted on this patient on 11/11/19 12:47 Attending Physician Justo Tatum MD Admitting Physician Justo Tatum MD Consult Allergies and Home Medications Allergies Coded Allergies: morphine (Unverified Adverse Reaction, Severe, HALLUCINATIONS, 07/24/19) Home Medications Calcium Carbonate/Vitamin D3 1 Each Tablet, 1 TAB PO DAILY, (Reported) Fentanyl 1 Each Patch.td72, 25 MCG TD Q72H, (Reported) Levothyroxine Sodium 100 Mcg Tablet, 100 MCG PO DAILY, (Reported) Lisinopril 20 Mg Tablet, 20 MG PO DAILY, (Reported) Meloxicam 7.5 Mg Tablet, 7.5 MG PO DAILY PRN for ARTHRITIS PAIN, (Reported) Quetiapine Fumarate 50 Mg Tablet, 50-100 MG PO HS, (Reported) [Calcitonin] 3.7 ML SOLN, 1 SPRAY NA DAILY alternate nostrils daily Prescribed by: JUSTO TATUM on 10/03/19 1326 Patient Home Medication List Home Medication List Reviewed: Yes Past Racvmhi-Ldtojk-Irqejv Hx Patient Social History Alcohol Use: Denies Use Recreational Drug Use: No Smoking Status: Former Smoker Former Smoker, Quit: Sep 30, 1981 Type Used: Cigarettes 2nd Hand Smoke Exposure: No Recent Foreign Travel: No Contact w/other who traveled: No Recent Hopitalizations: No Recent Infectious Disease Expo: No Immunizations Up To Date Tetanus Booster (TDap): Less than 5yrs Pediatric: No Date of Pneumonia Vaccine: Jul 16, 2019 Date of Influenza Vaccine: Jul 16, 2019 Seasonal Allergies Seasonal Allergies: No Surgeries Yes (REPAIR OF URETHRAL PROLAPSE 07/2019;L BREAST LUMPECTOMY/SENTINAL NODE BX ) Bladder Surgery, Breast, Gallbladder, Hysterectomy, Joint Replacement, Lumpectomy, Orthopedic, Thyroidectomy Respiratory No Cardiovascular Yes Hypertension Neurological Yes (DEMENTIA WITH "SUNDOWNER'S" ) Dementia Reproductive System Hx Reproductive Disorders: Yes Sexually Transmitted Disease: No HIV/AIDS: No 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, 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 Genitourinary Yes (URETHRAL PROLAPSE REPAIR 07/2019) UTI-Chronic Gastrointestinal Yes Gastroesophageal Reflux, Chronic Constipation Musculoskeletal Yes (LEFT HIP REPLACEMENT FOR ARTHRITIS 2013; L2 VERTEBRAL FX 09/2019) Arthritis, Fractures Endocrine History of Endocrine Disorders: Yes (MULTINODULAR GOITER--S/P THYROIDECTOMY 12/2016) Endocrine Disorders: Hypothyroidsim HEENT History of HEENT Disorders: Yes (DENTURES) Loss of Vision: Denies Hearing Impairment: Denies Cancer Yes (LEFT BREAST CANCER DX 2009--S/P LUMPECTOMY AND SENTINEL NODE BIOPSY) Breast Did You Recieve Any Treatments: Yes Type of Treatment: Chemotherapy, Radiation, Surgical Intervention Psychosocial History of Psychiatric Problem: No Integumentary History of Skin or Integumenta: No Blood Transfusions History of Blood Disorders: No Adverse Reaction to a Blood Tr: No (N/A) Family Medical History Significant Family History: Diabetes, Stroke Other Significan Family Hx: PSH: -LEFT BREAST LUMPECTOMY WITH SENTINAL LYMPH NODE BIOPSY 2009 -PORT PLACEMENT 2009 -THROIDECTOMY 12/2016 -LEFT HIP REPLACEMENT 2013 -URETHRAL PROLAPSE REPAIR 07/2019 Family Hx: Family history: Arthritis 03 FATHER 03 MOTHER 09 BROTHER 09 SISTER No Family History of: Abdominal aortic aneurysm Alcoholism Cancer Family history: Alzheimer's disease Family history: Asthma Family history: Breast disease Family history: Cardiovascular disease Family history: Diabetes mellitus Family history: Gastrointestinal disease Family history: Hypertension Family history: Thyroid disorder Hereditary disease History of - respiratory disease Kidney disease Myocardial infarction Parkinson's disease Prostate cancer Psychotic disorder Seizure disorder Stroke Review of Systems Review of Systems ROS Unable to Obtain: due to dementia Physical Exam Vital Signs Vital Signs - First Documented 11/10/19 17:38 Temp 37.2 Pulse 102 Resp 20 B/P (MAP) 122/57 (78) Pulse Ox 94 O2 Delivery Room Air Capillary Refill : Less Than 3 Seconds Height, Weight, BMI Height: 5'3.00" Weight: 145lbs. 0.0oz. 65.956407bt; 22.47 BMI Method:Stated General Appearance: No Apparent Distress, WD/WN HEENT: PERRL/EOMI Neck: Non Tender, Supple Respiratory: Chest Non Tender, Lungs Clear, Normal Breath Sounds, No Accessory Muscle Use, No Respiratory Distress Cardiovascular: Regular Rate, Rhythm, No Edema Gastrointestinal: Soft Back: No CVA Tenderness Extremity: Normal Range of Motion, Non Tender Neurologic/Psychiatric: Alert, Disoriented Skin: Normal Color, Warm/Dry Assessment/Plan Assessment/Plan Admission Dx urinary tract infection with delirium Admission Status: Inpatient Order (span 2 midnights) Reason for Inpatient Admission: Expect patient to stay over 2 midnights due to her UTI with acute delirium she could become septic rapidly. Assessment and Plan 74 yo F admitted for UTI and worsening behaviors related to the UTI. will be treating her UTI with IV antibiotics- awaiting cultures. Will need treatment for 14 days as these keep reoccuring. -will rehydrate as this is part of her problem- her urine sits stagnant in her bladder as she does urinate very often. -stopping calcitonin nasal spray -stopping hydrocodone/apap- she does have the fentanyl patch for pain control. DVT ppx: SCDs. Dispo: expect her to improve with fluid hydration and antibiotic treatment. Problems: (1) UTI (urinary tract infection) Qualifiers: (2) Urethral prolapse (3) Hypothyroidism Assessment & Plan: continue current dosage (4) Hypokalemia (5) Alzheimer's dementia with behavioral disturbance (6) Delirium Clinical Quality Measures DVT/VTE Risk/Contraindication: Risk Factor Score Per Nursin RFS Level Per Nursing on Admit: 4+=Very High JUSTO TATUM MD Nov 11, 2019 12:50
[2019-11-11] MEDS ORDERED: MELOXICAM 7.5 MG (MOBIC) TABLET PO PRN (13:00)
[2019-11-11] MEDS: fentaNYL PATCH 25 MCG (DURAGESIC) TD SCH (14:15)
[2019-11-11] MEDS: FENTANYL PATCH REMOVAL TP SCH (14:15)
[2019-11-11] MEDS: QUEtiapine 25 MG (SEROquel) TAB IMMEDIATE RELEASE PO SCH (20:11)
[2019-11-12] VITALS: BP 122/72
[2019-11-12] MEDS: D5 1/2 NS W/KCL 20 MEQ/L 1,000 ML IV SCH ×3 (01:42→16:05)
[2019-11-12 04:20] VITALS: BP 146/76
[2019-11-12 06:39] LABS: ALANINE AMINOTRANSFERASE 11 U/L (0-55); ALBUMIN 3.3 GM/DL (3.2-4.5); ALKALINE PHOSPHATASE 58 U/L (40-136); BILIRUBIN,TOTAL 0.4 MG/DL (0.1-1.0); BUN/CREATININE RATIO 6; CALCIUM 8.5 MG/DL (8.5-10.1); CARBON DIOXIDE 21 MMOL/L (21-32); CHLORIDE 107 MMOL/L (98-107); CREATININE SERUM 0.67 MG/DL (0.60-1.30); GFR ESTIMATED > 60; GLUCOSE 121 MG/DL (70-105); POTASSIUM 3.5 MMOL/L (3.6-5.0); SODIUM 139 MMOL/L (135-145); TOTAL PROTEIN 6.5 GM/DL (6.4-8.2)
[2019-11-12] MEDS: CEFEPIME INJECTION 1,000 MG in WATER (STERILE) FOR INJECTION 10 ML IV SCH ×2 (06:48→19:33)
[2019-11-12 08:00] VITALS: BP 171/82
[2019-11-12] MEDS: lisINopril 20 MG (PRINIVIL) TABLET PO SCH (08:37)
[2019-11-12] MEDS: LEVOTHYROXINE 100 MCG (LEVOTHROID) TAB PO SCH (08:37)
[2019-11-12 12:00] VITALS: BP 194/93
[2019-11-12 19:21] VITALS: BP 178/82
--- NOTE | 2019-11-12 20:24 | Progress Note ---
Subjective Subjective Date Seen by Provider: Nov 12, 2019 Time Seen by Provider: 08:25 No overnight events. She did not eat much of her breakfast this AM. No fevers. No complaints but pt is unable to communicate effectively. -Daughter at bedside and we discussed Maddison's code status. She states she thinks she should be DNR but remembers that her mom would say do everything if she did not have dementia. We have kept her as a full code for this reason. -Daughter reports that this is the worst she has seen her mom and wonders if it is her dementia progressing or if it is the infection. I informed patient both are playing a role. The acute changes are likely the infection as she is acting her normal baseline this AM. Review of Systems ROS Unable to Obtain: due to dementia Objective Exam Vital Signs Vital Signs Date Time Temp Pulse Resp B/P (MAP) Pulse Ox O2 Delivery O2 Flow Rate FiO2 11/12/19 19:21 37.8 97 15 178/82 (114) 95 Room Air 11/12/19 16:00 37.4 99 18 96 Room Air 11/12/19 12:00 37.2 84 16 194/93 (126) 93 Room Air 11/12/19 08:00 37.4 86 18 171/82 (111) 95 Room Air 11/12/19 08:00 96 Room Air 11/12/19 04:20 36.8 85 24 146/76 (99) 97 Room Air 11/12/19 00:00 36.2 77 24 122/72 (89) 96 Room Air I & O 11/12/19 07:00 Intake Total 2240 ml Output Total 2750 ml Balance -510 ml General Appearance: No Apparent Distress, WD/WN HEENT: PERRL/EOMI Neck: Non Tender, Supple Respiratory: Chest Non Tender, Lungs Clear, Normal Breath Sounds, No Accessory Muscle Use, No Respiratory Distress Cardiovascular: Regular Rate, Rhythm, No Edema Gastrointestinal: Soft Back: No CVA Tenderness Extremity: Normal Range of Motion, Non Tender Neurologic/Psychiatric: Alert, Disoriented Skin: Normal Color, Warm/Dry Results Lab Laboratory Tests 11/12/19 06:00: Sodium Level 139, Potassium Level 3.5L, Chloride Level 107, Carbon Dioxide Level 21, Anion Gap 11, Blood Urea Nitrogen 4L, Creatinine 0.67, Estimat Glomerular Filtration Rate > 60, BUN/Creatinine Ratio 6, Glucose Level 121H, Calcium Level 8.5, Corrected Calcium 9.1, Total Bilirubin 0.4, Aspartate Amino Transf (AST/SGOT) 16, Alanine Aminotransferase (ALT/SGPT) 11, Alkaline Phosphatase 58, Total Protein 6.5, Albumin 3.3 Microbiology 11/10/19 Blood Culture - Preliminary, Resulted No growth 11/10/19 Urine Culture - Final, Complete Proteus mirabilis Assessment/Plan Assessment/Plan Admission Dx urinary tract infection with delirium Assessment and Plan 11/12/2019- continue antibiotics- appears it is proteus mirabilis- will change to keflex 500mg TID to complete 14 days. Her mentation is back near normal- delirium is improving. Potassium is still low with continue to replace. DVT ppx: SCDs. Dispo: Plan to discharge to home with daughter tomorrow 11/13/2019 Problems: (1) UTI (urinary tract infection) Qualifiers: (2) Urethral prolapse (3) Hypothyroidism Assessment & Plan: continue current dosage (4) Hypokalemia (5) Alzheimer's dementia with behavioral disturbance (6) Delirium Admission Dx urinary tract infection with delirium Clinical Quality Measures Admission Status Admission Dx urinary tract infection with delirium DVT/VTE Risk/Contraindication: Risk Factor Score Per Nursin RFS Level Per Nursing on Admit: 4+=Very High JULIO MELTON MD Nov 12, 2019 20:24
[2019-11-12] MEDS: QUEtiapine 25 MG (SEROquel) TAB IMMEDIATE RELEASE PO SCH (20:46)
[2019-11-12] MEDS: ACETAMINOPHEN 500 MG TAB (TYLENOL) PO PRN (22:06)
[2019-11-13 00:05] VITALS: BP 137/72
[2019-11-13] MEDS: D5 1/2 NS W/KCL 20 MEQ/L 1,000 ML IV SCH ×4 (00:53→22:50)
[2019-11-13 04:10] VITALS: BP 166/93
[2019-11-13] MEDS: CEFEPIME INJECTION 1,000 MG in WATER (STERILE) FOR INJECTION 10 ML IV SCH (06:43)
[2019-11-13 08:00] VITALS: BP 144/85
[2019-11-13] MEDS: CEPHALEXIN 250 MG/5 ML 100 ML (KEFLEX) SUSP PO SCH ×3 (08:56→20:12)
[2019-11-13] MEDS: LEVOTHYROXINE 100 MCG (LEVOTHROID) TAB PO SCH (08:57)
[2019-11-13] MEDS: lisINopril 20 MG (PRINIVIL) TABLET PO SCH (08:59)
--- NOTE | 2019-11-13 09:01 | Progress Note ---
Subjective Subjective Date Seen by Provider: Nov 13, 2019 Time Seen by Provider: 08:55 Patient developed pain in her right arm yesterday and it has continued to get worse- her IV was changed to her left arm yesterday when the right arm was noted to be swollen, warm, and painful. Pain with lifting her arm up and moving it. She also developed a fever at 10pm last night. 100.4F. Review of Systems ROS Unable to Obtain: due to dementia Objective Exam Vital Signs Vital Signs Date Time Temp Pulse Resp B/P (MAP) Pulse Ox O2 Delivery O2 Flow Rate FiO2 11/13/19 04:10 36.5 80 20 166/93 (117) 97 Room Air 11/13/19 00:05 37.2 80 24 137/72 (93) 95 Room Air 11/12/19 22:40 37.5 11/12/19 22:06 38.0 11/12/19 20:40 Room Air 11/12/19 19:21 37.8 97 15 178/82 (114) 95 Room Air 11/12/19 16:00 37.4 99 18 96 Room Air 11/12/19 12:00 37.2 84 16 194/93 (126) 93 Room Air I & O 11/13/19 07:00 Intake Total 2250 ml Output Total 3400 ml Balance -1150 ml General Appearance: No Apparent Distress, WD/WN HEENT: PERRL/EOMI Neck: Non Tender, Supple Respiratory: Chest Non Tender, Lungs Clear, Normal Breath Sounds, No Accessory Muscle Use, No Respiratory Distress Cardiovascular: Regular Rate, Rhythm, No Edema Gastrointestinal: Soft Back: No CVA Tenderness Extremity: Other (right arm swollen, warm to touch, painful.) Neurologic/Psychiatric: Alert, Disoriented Skin: Normal Color, Warm/Dry Results Lab Microbiology 11/10/19 Blood Culture - Preliminary, Resulted No growth 11/10/19 Urine Culture - Final, Complete Proteus mirabilis Assessment/Plan Assessment/Plan Admission Dx urinary tract infection with delirium Assessment and Plan 11/12/2019- continue antibiotics- appears it is proteus mirabilis- will change to keflex 500mg TID to complete 14 days. Her mentation is back near normal- delirium is improving. Potassium is still low with continue to replace. 11/13/2019- discharge is not as likely with the development of her right arm pain/cellulitis. As for her new fever- It is is likely in part to her being in the bed x3days and not taking deep breaths. She continues to refuse food and drink. I did have a discussion with her daughter that her dementia is progressing and she will likely continue to decline and this may be part of her decline. Daughter voiced understanding. They will try ensure today. But do not force food/drink. Stopping IVF. DVT ppx: SCDs. Dispo: Will reassess her right arm this afternoon after ice is applied. Appears to be cellulitis and possible thrombophlebitis- Keflex will give better gram + coverage. --right arm cellulitis was not any better this afternoon- broaden coverage with vancomycin- will reassess in AM. Continue ice packs. Problems: (1) UTI (urinary tract infection) Qualifiers: (2) Urethral prolapse (3) Hypothyroidism Assessment & Plan: continue current dosage (4) Hypokalemia (5) Alzheimer's dementia with behavioral disturbance (6) Delirium (7) Cellulitis of arm, right Admission Dx urinary tract infection with delirium Clinical Quality Measures Admission Status Admission Dx urinary tract infection with delirium DVT/VTE Risk/Contraindication: Risk Factor Score Per Nursin RFS Level Per Nursing on Admit: 4+=Very High JULIO MELTON MD Nov 13, 2019 09:01
[2019-11-13] MEDS: ENOXAPARIN 40 MG/0.4 ML (LOVENOX) SYR SC SCH (09:08)
[2019-11-13 12:00] VITALS: BP 185/90
[2019-11-13 16:41] VITALS: BP 144/95
[2019-11-13] MEDS ORDERED: VANCOMYCIN INJECTION 0.1 MG in NS (IVPB) 250 ML IV SCH (17:30)
[2019-11-13] MEDS ORDERED: VANCOMYCIN 1500 MG/NS 500 ML IVPB IV NR ×2 (17:45)
[2019-11-13 20:00] VITALS: BP 166/83
[2019-11-13] MEDS: QUEtiapine 25 MG (SEROquel) TAB IMMEDIATE RELEASE PO SCH (20:12)
[2019-11-14 00:28] VITALS: BP 189/81
[2019-11-14 04:36] VITALS: BP 162/92
[2019-11-14] MEDS: D5 1/2 NS W/KCL 20 MEQ/L 1,000 ML IV SCH (06:05)
[2019-11-14] MEDS ORDERED: FUROSEMIDE 40 MG/4 ML INJ (LASIX) ONE (06:50)
[2019-11-14] MEDS ORDERED: FUROSEMIDE 40 MG/4 ML INJ (LASIX) IVP NR (06:55)
--- NOTE | 2019-11-14 06:58 | Progress Note ---
Subjective Subjective Date Seen by Provider: Nov 14, 2019 Time Seen by Provider: 06:50 74 yo F still inpatient as she developed cellulitis and likely thrombophlebitis in her right arm. It is not worse this AM after adding on vancomycin. Her hand is the most swollen which is in part due to the IV being in that arm when the cellulitis developed. No pain on dorsal side of her hand/arm- pain is noted when she supinates her hand. No fevers overnight. Still not drinking or eating much. -She kisses her right arm to makes it better. Good urine output with IVF. Review of Systems ROS Unable to Obtain: due to dementia Musculoskeletal: arm pain (right arm) Objective Exam Vital Signs Vital Signs Date Time Temp Pulse Resp B/P (MAP) Pulse Ox O2 Delivery O2 Flow Rate FiO2 11/14/19 04:36 37.3 88 18 162/92 (115) 94 Room Air 11/14/19 00:28 37.1 89 20 189/81 (117) 97 Room Air 11/13/19 20:00 37.3 96 20 166/83 (110) 96 Room Air 11/13/19 20:00 Room Air 11/13/19 16:41 36.6 87 20 144/95 (111) 96 Room Air 11/13/19 12:00 37.2 84 18 185/90 (121) 97 Room Air 11/13/19 09:22 Room Air 11/13/19 08:00 Room Air 11/13/19 08:00 36.4 77 18 144/85 (104) 95 Room Air I & O 11/14/19 07:00 Intake Total 4665 ml Output Total 2775 ml Balance 1890 ml General Appearance: No Apparent Distress (only in distress with right arm is manipulated), WD/WN HEENT: PERRL/EOMI Neck: Non Tender, Supple Respiratory: Chest Non Tender, Lungs Clear, Normal Breath Sounds, No Accessory Muscle Use, No Respiratory Distress Cardiovascular: Regular Rate, Rhythm, No Edema Gastrointestinal: Soft Back: No CVA Tenderness Extremity: Other (right arm swollen, warm to touch, painful.) Neurologic/Psychiatric: Alert, Disoriented Skin: Normal Color, Warm/Dry Results Lab Microbiology 11/10/19 Blood Culture - Preliminary, Resulted No growth 11/10/19 Urine Culture - Final, Complete Proteus mirabilis Assessment/Plan Assessment/Plan Admission Dx urinary tract infection with delirium Assessment and Plan 11/12/2019- continue antibiotics- appears it is proteus mirabilis- will change to keflex 500mg TID to complete 14 days. Her mentation is back near normal- delirium is improving. Potassium is still low with continue to replace. 11/13/2019- discharge is not as likely with the development of her right arm pain/cellulitis. As for her new fever- It is is likely in part to her being in the bed x3days and not taking deep breaths. She continues to refuse food and drink. I did have a discussion with her daughter that her dementia is progressing and she will likely continue to decline and this may be part of her decline. Daughter voiced understanding. They will try ensure today. But do not force food/drink. 11/04/2019- stopping IVFs and see if her appetite improves. giving one dose of lasix to help with the right hand swelling. Right hand/arm has not worsened overnight and maybe a little less swollen. - urine output is good. Urine is clear. She still has a catheter to decrease skin breakdown as this has been an issue at home. I have ordered a hospital bed at home due to skin breakdown and early decubitis ulcer concerns as well as dysphagia. DVT ppx: lovenox Dispo: continue antibiotics. -- Continue ice packs to right arm -If her right arm cellulitis continues to improve today will d/c to home tomorrow- likely will switch to doxycycline or bactrim. Problems: (1) UTI (urinary tract infection) Qualifiers: (2) Urethral prolapse Assessment & Plan: history of status repair 07/2019 (3) Hypothyroidism Assessment & Plan: continue current dosage (4) Hypokalemia (5) Alzheimer's dementia with behavioral disturbance (6) Delirium Assessment & Plan: improved (7) Cellulitis of arm, right Admission Dx urinary tract infection with delirium Clinical Quality Measures Admission Status Admission Dx urinary tract infection with delirium DVT/VTE Risk/Contraindication: Risk Factor Score Per Nursin RFS Level Per Nursing on Admit: 4+=Very High JULIO MELTON MD Nov 14, 2019 06:58
[2019-11-14 08:00] VITALS: BP 175/94
[2019-11-14] MEDS: lisINopril 20 MG (PRINIVIL) TABLET PO SCH (08:04)
[2019-11-14] MEDS: LEVOTHYROXINE 100 MCG (LEVOTHROID) TAB PO SCH (08:04)
[2019-11-14] MEDS: CEPHALEXIN 250 MG/5 ML 100 ML (KEFLEX) SUSP PO SCH ×3 (08:05→20:41)
[2019-11-14] MEDS: ENOXAPARIN 40 MG/0.4 ML (LOVENOX) SYR SC SCH (08:05)
[2019-11-14 12:00] VITALS: BP 139/104
[2019-11-14] MEDS: FENTANYL PATCH REMOVAL TP SCH (13:36)
[2019-11-14] MEDS: fentaNYL PATCH 25 MCG (DURAGESIC) TD SCH (13:36)
[2019-11-14 16:00] VITALS: BP 149/85
[2019-11-14] MEDS: ACETAMINOPHEN 500 MG TAB (TYLENOL) PO PRN (16:01)
[2019-11-14] MEDS ORDERED: VANCOMYCIN 1250 MG/NS 250 ML IVPB IV SCH ×2 (17:00)
[2019-11-14 20:00] VITALS: BP 166/85
[2019-11-14] MEDS ORDERED: morphine INJ 4 MG/ML 1 ML (VIAL/SYRINGE) IVP NR (20:00)
[2019-11-14] MEDS: QUEtiapine 25 MG (SEROquel) TAB IMMEDIATE RELEASE PO SCH (20:41)
[2019-11-15 00:25] VITALS: BP 124/65
[2019-11-15 04:50] VITALS: BP 161/81
[2019-11-15 08:00] VITALS: BP 153/75
[2019-11-15] MEDS ORDERED: CEPH250S PO (09:01)
[2019-11-15] MEDS ORDERED: DOXY100C2 PO (09:01)
--- NOTE | 2019-11-15 09:05 | Discharge Summary ---
Discharge Summary Hospital Course Was the Problem List Reviewed?: Yes Problems/Dx: (1) UTI (urinary tract infection) Status: Resolved Qualifiers: (2) Urethral prolapse (3) Hypothyroidism Status: Chronic (4) Hypokalemia Status: Acute (5) Alzheimer's dementia with behavioral disturbance Status: Chronic (6) Delirium Status: Resolved (7) Cellulitis of arm, right Status: Acute Hospital Course Date of Admission: Nov 10, 2019 at 20:10 Admission Diagnosis : Family Physician/Provider: Justo Tatum MD Date of Discharge: 11/15/19 Discharge Diagnosis: [ ] Hospital Course: [ HPI: 74 yo F with progressing dementia admitted for worsening of confusion and behaviors related to a recurrent UTI. She was treated over a week ago for a UTI that amoxicillin would cover. Patient's dementia has made it difficult for her daughter to administer medications and care for her. But patient would not want to go to a detention and her daughter is trying to honor her wishes by keeping her at home. As for this admission, patient was not eating or drinking much. She was attempting to eat her clothing and not acting herself. So she was brought to the ER. No reported fevers. Urine has been foul odor per daughter with decreased output. She does have incontinence and underwent urethral prolapse last year with Dr. Ramirez. She could decompensate quickly and/or have a resistant bacteria causing her infection so she was admitted to further workup. Patient was rehydrated with IVF- her urine cleared up with hydration and ant ibiotic treatment- she was found to have Proteus as the cause. On 11/13/19 she developed right arm cellulitis and thrombophlebitis. Ice packs were utilized but she would not leave them on very long. Antibiotic coverage was broadened with vancomycin. 11/14/19 she was not much better but on 11/15/2019, her right arm was not as warm, swelling improved, still painful with movement on volar aspect. She was deemed stable for discharge 11/15/19- she will complete keflex for her UTI for total duration of 14 days as she keeps getting UTIs. She needs to increase her fluid intake but her dementia has been an issue with eating and drinking (poor intake). She will complete doxycycline to treat her right arm cellulitis. Continue ice packs for her right arm pain/thrombophlebitis. Labs and Pending Lab Test: Microbiology 11/10/19 Blood Culture - Preliminary, Resulted No growth 11/10/19 Urine Culture - Final, Complete Proteus mirabilis Home Meds Active [Calcitonin] 3.7 ML Soln 1 [place] NA DAILY alternate nostrils daily Reported Duragesic Patch 25MCG (Fentanyl) 1 Each Patch.td72 25 Mcg TD Q72H Quetiapine Fumarate 50 Mg Tablet 50-100 Mg PO HS Lisinopril 20 Mg Tablet 20 Mg PO DAILY Levothyroxine Sodium 100 Mcg Tablet 100 Mcg PO DAILY Meloxicam 7.5 Mg Tablet 7.5 Mg PO DAILY PRN Calcium + Vitamin D Tablet (Calcium Carbonate/Vitamin D3) 1 Each Tablet 1 Tab PO DAILY Assessment/Pt Instructions Follow up at [facility] in 1-2 weeks. -Resume Home Health services. -Complete cephalexin course for UTI -Complete doxycycline course for right arm cellulitis. (february open capsule and take with applesauce/yogurt) Discharge Planning: <30 minutes discharge planning Discharge Instructions Discharge Diet: No Restrictions Activity as Tolerated: Yes Discharge Physical Examination Vital Signs Vital Signs Date Time Temp Pulse Resp B/P (MAP) Pulse Ox O2 Delivery O2 Flow Rate FiO2 11/15/19 08:00 36.6 77 16 153/75 (101) 94 Room Air General Appearance: No Apparent Distress HEENT: PERRL/EOMI Respiratory: Lungs Clear, Normal Breath Sounds, No Accessory Muscle Use, No Respiratory Distress Cardiovascular: Regular Rate, Rhythm, No Edema Gastrointestinal: Normal Bowel Sounds, Non Tender, Soft Extremity: Swelling (right arm- swelling has improved, not as warm, still painful with touching volar aspect), Other Skin: Warm/Dry Neurologic/Psychiatric: Alert Allergies: Coded Allergies: morphine (Unverified Adverse Reaction, Severe, HALLUCINATIONS, 07/24/19) Discharge Summary Date of Admission Nov 10, 2019 at 20:10 Date of Discharge Discharge Diagnosis (1) UTI (urinary tract infection) Status: Resolved Qualifiers: (2) Urethral prolapse Assessment & Plan: history of status repair 07/2019 (3) Hypothyroidism Status: Chronic Assessment & Plan: continue current dosage (4) Hypokalemia Status: Acute (5) Alzheimer's dementia with behavioral disturbance Status: Chronic (6) Delirium Status: Resolved Assessment & Plan: improved (7) Cellulitis of arm, right Status: Acute Clinical Quality Measures DVT/VTE Risk/Contraindication: Risk Factor Score Per Nursin RFS Level Per Nursing on Admit: 4+=Very High JUSTO TATUM MD Nov 15, 2019 09:05
[2019-11-15] MEDS: ENOXAPARIN 40 MG/0.4 ML (LOVENOX) SYR SC SCH (11:03)
[2019-11-15] MEDS: CEPHALEXIN 250 MG/5 ML 100 ML (KEFLEX) SUSP PO SCH ×2 (11:03→13:47)
[2019-11-15] MEDS: LEVOTHYROXINE 100 MCG (LEVOTHROID) TAB PO SCH (11:03)
[2019-11-15] MEDS: lisINopril 20 MG (PRINIVIL) TABLET PO SCH (11:03)
[2019-11-15 12:00] VITALS: BP 159/74
[2019-11-15 14:00] VITALS: BP 159/74
[2019-11-15] MEDS ORDERED: CEPHALEXIN 250 MG/5 ML 100 ML (KEFLEX) SUSP PO SCH (14:00)
[2019-11-15] MEDS ORDERED: TROUGH ORDER-PHARMACY XX NR (16:00)
== END 2019-11-15 14:00 | disposition home or self-care (01) | DRG 690 ==
LOC: EDUNIT# 16:29 → ER 16:31 → 4TH 20:10
PROVIDERS: ADMIT Internal Medicine; ATTEND Family Medicine
DX: N39.0 Urinary tract infection, site not specified (principal); F05 Delirium due to known physiological condition; F02.81 Dementia in other diseases classified elsewhere, unspecified severity, with behavioral disturbance; L03.113 Cellulitis of right upper limb; G30.9 Alzheimer's disease, unspecified; E86.0 Dehydration; E89.0 Postprocedural hypothyroidism; S32.029D Unspecified fracture of second lumbar vertebra, subsequent encounter for fracture with routine healing; E87.6 Hypokalemia; I10 Essential (primary) hypertension; K21.9 Gastro-esophageal reflux disease without esophagitis; I80.8 Phlebitis and thrombophlebitis of other sites; Z87.891 Personal history of nicotine dependence; Z96.642 Presence of left artificial hip joint; M19.90 Unspecified osteoarthritis, unspecified site; Z85.3 Personal history of malignant neoplasm of breast; Z92.21 Personal history of antineoplastic chemotherapy; Z92.3 Personal history of irradiation
CPT/HCPCS: 36415; 51701; 51702; 71045; 80053; 81000; 83605; 83735; 85025; 85610; 85730; 87040; 87077; 87088; 87186; 96361; 96365

== ENCOUNTER 2021-03-04 13:01 | Observation (INO) | payer MEDICARE ==
[~2021-03-04] VITALS: Ht 152 cm; Wt 52.0 kg
[2021-03-04 13:01] VITALS: BP 102/76
[~2021-03-04 13:01] MED LIST changes: +CEPH250S PO; +DOXY100C2 PO; +FENT1PAT57 TD; -LISI-552 PO; +LISI20TA26 PO; +QUET50TA22 PO; -QUET50TA55 PO
[2021-03-04 13:13] LABS: BASOPHILS # (AUTO) 0.1 10^3/uL (0.0-0.1); BASOPHILS % (AUTO) 1 % (0-10); EOSINOPHILS # (AUTO) 0.1 10^3/uL (0.0-0.3); EOSINOPHILS % (AUTO) 1 % (0-10); HEMATOCRIT 47 % (35-52); HEMOGLOBIN 14.9 g/dL (11.5-16.0); LYMPHOCYTES # (AUTO) 3.3 10^3/uL (1.0-4.0); LYMPHOCYTES % (AUTO) 46 % (12-44); MEAN CORPUSCULAR HEMOGLOBIN 31 pg (25-34); MEAN CORPUSCULAR HGB CONC 32 g/dL (32-36); MEAN CORPUSCULAR VOLUME 98 fL (80-99); MEAN PLATELET VOLUME 10.1 fL (9.0-12.2); MONOCYTES # (AUTO) 0.5 10^3/uL (0.0-1.0); MONOCYTES % (AUTO) 7 % (0-12); NEUTROPHILS % (AUTO) 41 % (42-75); PLATELET COUNT 264 10^3/uL (130-400); WHITE BLOOD COUNT 7.2 10^3/uL (4.3-11.0)
--- NOTE | 2021-03-04 13:22 | Diagnostic Imaging Report ---
PROCEDURE: CT head wo r/o stroke. TECHNIQUE: Multiple contiguous axial images were obtained through the brain without the use of intravenous contrast. Auto Exposure Controls were utilized during the CT exam to meet ALARA standards for radiation dose reduction. INDICATION: Stroke activation with neurodeficit. Correlation is made prior head CT from 09/30/2019. FINDINGS: There is prominence of ventricles and sulci consistent with cerebral atrophy. No sulcal effacement or midline shift is identified. No acute intra-axial or extra-axial hemorrhage is detected. Cisterns are patent. Visualized paranasal sinuses are clear. IMPRESSION: Chronic and senescent changes. No acute intracranial process is detected. Dictated by: Dictated on workstation # [id number]
[2021-03-04 13:25] LABS: ALBUMIN 4.2 GM/DL (3.2-4.5)
[2021-03-04 13:26] LABS: CHLORIDE 103 MMOL/L (98-107); POTASSIUM 3.7 MMOL/L (3.6-5.0); SODIUM 141 MMOL/L (135-145)
[2021-03-04 13:27] LABS: CALCIUM 9.1 MG/DL (8.5-10.1)
[2021-03-04 13:28] LABS: GLUCOSE 122 MG/DL (70-105); TOTAL PROTEIN 7.8 GM/DL (6.4-8.2)
[2021-03-04 13:29] LABS: CARBON DIOXIDE 23 MMOL/L (21-32)
[2021-03-04 13:30] LABS: BILIRUBIN,TOTAL 0.7 MG/DL (0.1-1.0)
[2021-03-04 13:31] LABS: ALKALINE PHOSPHATASE 59 U/L (40-136)
[2021-03-04 13:32] LABS: CREATININE SERUM 0.87 MG/DL (0.60-1.30); GFR ESTIMATED > 60
[2021-03-04 13:33] LABS: BUN/CREATININE RATIO 16; FIBRIN DEGRADATION PRODUCTS 5.73 UG/ML (0.00-0.49); INR 1.1 (0.8-1.4); PROTHROMBIN TIME PATIENT 14.9 SEC (12.2-14.7)
[2021-03-04 13:35] LABS: ALANINE AMINOTRANSFERASE 17 U/L (0-55)
--- NOTE | 2021-03-04 13:51 | Diagnostic Imaging Report ---
INDICATION: Weakness. Lethargy. COMPARISON: 11/10/2019 FINDINGS: Single frontal view of the chest demonstrates normal heart size and pulmonary vascularity. The lungs show low inspiratory volumes with minimal patchy bibasilar atelectasis. No large pleural effusion or pneumothorax is seen. The visualized osseous structures show no acute abnormalities. IMPRESSION: 1. No acute cardiopulmonary process. Dictated by: Dictated on workstation # [id number]
[2021-03-04 14:15] LABS: FREE T4 (FREE THYROXINE) 0.79 NG/DL (0.70-1.48)
[2021-03-04] MEDS ORDERED: HOLD METFORMIN - RECEIVED CONTRAST 20 ML VIAL IV SCH (14:15)
[2021-03-04] MEDS ORDERED: IOHEXOL 350 MG/ML 100 ML (OMNIPAQUE 350) VIAL IV ONE (14:15)
[2021-03-04] MEDS ORDERED: NS 100 ML (IVPB) BAG IV ONE (14:15)
[2021-03-04 14:39] LABS: BILIRUBIN,URINE NEGATIVE (NEGATIVE); CLARITY,URINE SL CLOUDY; COLOR,URINE YELLOW; GLUCOSE, URINE (UA) NEGATIVE (NEGATIVE); KETONES,URINE NEGATIVE (NEGATIVE); LEUKOCYTE ESTERASE ,URINE NEGATIVE (NEGATIVE); NITRITE,URINE NEGATIVE (NEGATIVE); PROTEIN,URINE TRACE (NEGATIVE)
[2021-03-04 14:52] LABS: BACTERIA,URINE NEGATIVE /HPF; RBC,URINE RARE /HPF; SQUAMOUS EPITHELIAL CELL,UR RARE /HPF
--- NOTE | 2021-03-04 15:16 | Diagnostic Imaging Report ---
CLINICAL INDICATION: Patient with altered mental status. Stroke activation. EXAMS: 1: Head CT with IV contrast. Auto Exposure Controls were utilized during the CT exam to meet ALARA standards for radiation dose reduction. 2: CT angiogram of the head and neck performed with 100 cc of Omnipaque 350 IV contrast. Sagittal and coronal MIP reformations were created for better visualization of vascular anatomy. COMPARISON: Head CT without contrast dated 03/04/2021. FINDINGS: Head CT: There is significant motion artifact obscuring portions of the posterior fossa, brainstem, and portions of the brain and skull base. There is also portion of the midportion of the brain obscured by streak artifact. There is no abnormal IV contrast enhancement as visualized. The brain parenchymal volume appears appropriate for patient's age. There are mild patchy and confluent areas of low-attenuation white matter changes seen throughout both cerebral hemispheres and periventricular regions suspected to represent chronic small vessel ischemic disease and leukoaraiosis. There is no hydrocephalus. Basal cisterns are unremarkable. CT ANGIOGRAM: There is dense contrast within the left subclavian vein and innominate vein and superior vena cava which causes streak artifact obscuring portions of aortic arch and mediastinal structures. The bilateral subclavian arteries are patent as visualized. The proximal aspect of the left common carotid artery is tortuous and significantly obscured by streak artifact. Otherwise the remainder of the left common carotid artery is patent. The left ECA and cervical left ICA are patent. Origin of the proximal aspect of the right common carotid artery is partially obscured by streak artifact and motion artifact. The right common carotid artery is otherwise patent as visualized. The right ECA and cervical right ICA is patent as visualized. There is motion artifact which obscures the C1-C2 level and vessels at this level. The bilateral petrous, cavernous, and supraclinoid ICA are patent. Right cervical vertebral artery is partially obscured at C1-C2 level due to motion artifact. Otherwise the bilateral cervical vertebral arteries are patent. Dominant left cervical vertebral artery is seen. The bilateral PICA are patent. The right cervical intradural vertebral artery ends in PICA. The intradural left vertebral artery, basilar artery, bilateral superior cerebellar arteries, and bilateral [employer] are patent. There is motion artifact limiting evaluation of the intracranial [place] vessels. Otherwise, the bilateral ACAs and their distal branches and bilateral MCAs and their distal branches are patent, as visualized. There is partial contrast opacification of the bilateral transverse dural venous sinuses, sigmoid dural venous sinuses, bilateral IJ. Otherwise, the dural venous sinuses are patent as visualized. The neck soft tissue structures show no significant abnormality. Visualized upper lung pena show no significant abnormality. There are cervical spine vertebral body spurs and facet arthropathy. There is grade 1 anterolisthesis of C4 on C5. There is [id number] loss of disk space height at the C5-C6 and C6-C7 levels with diffuse disk bulge and uncinate spurs. IMPRESSION: 1: There is significant motion artifact which limits evaluation of the intracranial structures, [place] vascular structures and neck arterial vascular structures. 2: There is no definite CT evidence of interval acute cerebral infarction, intracranial hemorrhage, or mass seen. Given the diffuse low attenuation changes throughout the brain parenchyma which can obscure more subtle findings, if there is clinical concern for acute cerebral infarction, MRI of the brain would better evaluate. 3: There are low-attenuation white matter changes involving both cerebral hemispheres which may be related to chronic small vessel ischemic disease and leukoaraiosis. 4: CT angiogram of the [place] and neck shows no significant stenosis, vascular malformation, or aneurysm, as visualized. There is no large vessel occlusion seen. Results of this report was discussed with Vasyl Duque APRN via the telephone on 03/04/2021 at 1509 hours. Dictated by: Dictated on workstation # [id number]
--- NOTE | 2021-03-04 15:57 | ED Neurological Problem ---
General Chief Complaint: Neurological Problems Stated Complaint: STROKE Nursing Triage Note: PT BROUGHT TO ED BY [facility] VIA ALS. PT WAS AT HOME WALKING USING HER WALKER, WITH STAND BY OF DAUGHTER. AROUND 1231 PT YELLED IF SHE WAS IN PAIN, HER LT ARM WAS THROWN UP IN THE AIR AND PT BECAME STIFF. PT WAS CAUGHT BY DAUGHTER WHOM THEN LOWERED PT TO THE GROUND. DENIES ANY HEAD INJURY DURING FALL OR HX OF. PT IS TOTAL CARE ACCORDING TO HISTORIAN DAUGHTER MICHAEL. PT'S MEMORY IS NOT INTACT EITHER. Nursing Sepsis Screen: No Definite Risk Source: family, EMS Exam Limitations: no limitations History of Present Illness Date Seen by Provider: March 04, 2021 Time Seen by Provider: 13:03 Initial Comments This is 75-year-old woman with advanced dementia presents to the emergency room via EMS with altered mental status. Patient's baseline requires assistance with ADLs such as toileting, eating, and dressing. She was transferring out of the bathroom using a walker with direct assist from her daughter. While transferring she hollered out, put throughout her arm in a stiff position and became rigid and posture. Her face was contorted during the episode. This posturing lasted less than a minute. Patient then became flaccid and unresponsive. There was no fall or injury. Daughter was able to lower her to the floor gently. Stroke activation was paged after phone report from EMS. Fingerstick blood sugar for EMS was 126. Allergies and Home Medications Allergies Coded Allergies: morphine (Unverified Adverse Reaction, Severe, HALLUCINATIONS, 07/24/19) Home Medications Calcium Carbonate/Vitamin D3 1 Each Tablet, 1 TAB PO DAILY, (Reported) Cephalexin 250 Mg/5 Ml Susp.recon, 500 MG PO TID Prescribed by: JUSTO MELTON on 11/15/19900 Doxycycline Hyclate 100 Mg Capsule, 100 MG PO BID Prescribed by: JUSTO MELTON on 11/15/19900 Fentanyl 1 Each Patch.td72, 25 MCG TD Q72H, (Reported) Levothyroxine Sodium 100 Mcg Tablet, 100 MCG PO DAILY, (Reported) Lisinopril 20 Mg Tablet, 20 MG PO DAILY, (Reported) Meloxicam 7.5 Mg Tablet, 7.5 MG PO DAILY PRN for ARTHRITIS PAIN, (Reported) Quetiapine Fumarate 50 Mg Tablet, 50-100 MG PO HS, (Reported) [Calcitonin] 3.7 ML SOLN, 1 SPRAY NA DAILY alternate nostrils daily Prescribed by: JUSTO MELTON on 10/03/19 1326 Patient Home Medication List Home Medication List Reviewed: Yes Review of Systems Review of Systems Constitutional: no symptoms reported Eyes: No Symptoms Reported Ears, Nose, Mouth, Throat: no symptoms reported Respiratory: no symptoms reported Cardiovascular: no symptoms reported Gastrointestinal: no symptoms reported Genitourinary: no symptoms reported : No Musculoskeletal: no symptoms reported Skin: no symptoms reported Psychiatric/Neurological: See HPI Endocrine: No Symptoms Reported Hematologic/Lymphatic: No Symptoms Reported Past Pboyczi-Hyrnva-Xycfny Hx Past Med/Social Hx: Reviewed Nursing Past Med/Soc Hx Patient Social History Alcohol Use: Denies Use Smoking Status: Former Smoker Type Used: Cigarettes Former Smoker, Quit: Sep 30, 1981 2nd Hand Smoke Exposure: No Recent Infectious Disease Expo: No Recent Hopitalizations: No Immunizations Up To Date Tetanus Booster (TDap): Less than 5yrs PED Vaccines UTD: No Date of Pneumonia Vaccine: Jul 16, 2019 Date of Influenza Vaccine: Jul 16, 2019 Seasonal Allergies Seasonal Allergies: No Past Medical History Surgeries: Yes (REPAIR OF URETHRAL PROLAPSE 07/2019;L BREAST LUMPECTOMY/SENTIN AL NODE BX ) Bladder Surgery, Breast, Gallbladder, Hysterectomy, Joint Replacement, Lumpectomy, Orthopedic, Thyroidectomy Respiratory: No Cardiac: Yes Hypertension 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, 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 Sexually Transmitted Disease: No HIV/AIDS: No Genitourinary: Yes (URETHRAL PROLAPSE REPAIR 07/2019) UTI-Chronic Gastrointestinal: Yes Gastroesophageal Reflux, Chronic Constipation Musculoskeletal: Yes (LEFT HIP REPLACEMENT FOR ARTHRITIS 2013; L2 VERTEBRAL FX 09/2019) Arthritis, Fractures Endocrine: Yes (MULTINODULAR GOITER--S/P THYROIDECTOMY 12/2016) Hypothyroidsim HEENT: Yes (DENTURES) Loss of Vision: Denies Hearing Impairment: Denies Cancer: Yes (LEFT BREAST CANCER DX 2009--S/P LUMPECTOMY AND SENTINEL NODE BIOPSY) Breast Did You Recieve Any Treatments: Yes What Type of Treatment Did You: Chemotherapy, Radiation, Surgical Intervention Psychosocial: No Integumentary: No Blood Disorders: No Adverse Reaction/Blood Tranf: No (N/A) Family Medical History Family history: Arthritis 03 FATHER 03 MOTHER 09 BROTHER 09 SISTER No Family History of: Abdominal aortic aneurysm Alcoholism Cancer Family history: Alzheimer's disease Family history: Asthma Family history: Breast disease Family history: Cardiovascular disease Family history: Diabetes mellitus Family history: Gastrointestinal disease Family history: Hypertension Family history: Thyroid disorder Hereditary disease History of - respiratory disease Kidney disease Myocardial infarction Parkinson's disease Prostate cancer Psychotic disorder Seizure disorder Stroke Diabetes, Stroke PSH: -LEFT BREAST LUMPECTOMY WITH SENTINAL LYMPH NODE BIOPSY 2009 -PORT PLACEMENT 2009 -THROIDECTOMY 12/2016 -LEFT HIP REPLACEMENT 2013 -URETHRAL PROLAPSE REPAIR 07/2019 Physical Exam Vital Signs Vital Signs - First Documented Capillary Refill : Less Than 3 Seconds Height, Weight, BMI Height: 5'3.00" Weight: 145lbs. 0.0oz. 65.069551nv; 22.00 BMI Method:Stated General Appearance: WD/WN, no apparent distress, other (Minimally responsive) HEENT: PERRL/EOMI, normal ENT inspection Neck: normal inspection, other (Thyroidectomy scar) Respiratory: lungs clear, normal breath sounds, no respiratory distress, no accessory muscle use Cardiovascular: regular rate, rhythm, no edema, no murmur Gastrointestinal: normal bowel sounds, non tender, soft Extremities: normal inspection, no pedal edema Neurologic/Psychiatric: process assistant II-XII nml as tested, other (Patient is alert to voice and follows with her eyes. She will sometimes follow commands to squeeze hands but will not follow any other commands. She does not speak. Level of alertness seems to be increasing with time. She is observed to move all 4 extremities.) Crainal Nerves: PERRL Skin: normal color, warm/dry Progress/Results/Core Measures Results/Orders Lab Results Laboratory Tests Test 03/04/21 13:06 03/04/21 14:17 Range/Units White Blood Count 7.2 4.3-11.0 10^3/uL Red Blood Count 4.77 3.80-5.11 10^6/uL Hemoglobin 14.9 11.5-16.0 g/dL Hematocrit 47 35-52 % Mean Corpuscular Volume 98 80-99 fL Mean Corpuscular Hemoglobin 31 25-34 pg Mean Corpuscular Hemoglobin Concent 32 32-36 g/dL Red Cell Distribution Width 13.2 10.0-14.5 % Platelet Count 264 130-400 10^3/uL Mean Platelet Volume 10.1 9.0-12.2 fL Immature Granulocyte % (Auto) 5 % Neutrophils (%) (Auto) 41 L 42-75 % Lymphocytes (%) (Auto) 46 H 12-44 % Monocytes (%) (Auto) 7 0-12 % Eosinophils (%) (Auto) 1 0-10 % Basophils (%) (Auto) 1 0-10 % Neutrophils # (Auto) 3.0 1.8-7.8 10^3/uL Lymphocytes # (Auto) 3.3 1.0-4.0 10^3/uL Monocytes # (Auto) 0.5 0.0-1.0 10^3/uL Eosinophils # (Auto) 0.1 0.0-0.3 10^3/uL Basophils # (Auto) 0.1 0.0-0.1 10^3/uL Immature Granulocyte # (Auto) 0.4 H 0.0-0.1 10^3/uL Prothrombin Time 14.9 H 12.2-14.7 SEC INR Comment 1.1 0.8-1.4 Activated Partial Thromboplast Time 34 24-35 SEC D-Dimer 5.73 H 0.00-0.49 UG/ML Sodium Level 141 135-145 MMOL/L Potassium Level 3.7 3.6-5.0 MMOL/L Chloride Level 103 98-107 MMOL/L Carbon Dioxide Level 23 21-32 MMOL/L Anion Gap 15 H 5-14 MMOL/L Blood Urea Nitrogen 14 7-18 MG/DL Creatinine 0.87 0.60-1.30 MG/DL Estimat Glomerular Filtration Rate > 60 BUN/Creatinine Ratio 16 Glucose Level 122 H 70-105 MG/DL Calcium Level 9.1 8.5-10.1 MG/DL Corrected Calcium 8.9 8.5-10.1 MG/DL Total Bilirubin 0.7 0.1-1.0 MG/DL Aspartate Amino Transf (AST/SGOT) 21 5-34 U/L Alanine Aminotransferase (ALT/SGPT) 17 0-55 U/L Alkaline Phosphatase 59 40-136 U/L Troponin I < 0.028 <0.028 NG/ML Total Protein 7.8 6.4-8.2 GM/DL Albumin 4.2 3.2-4.5 GM/DL Thyroid Stimulating Hormone (TSH) 69.10 H 0.35-4.94 UIU/ML Free Thyroxine 0.79 0.70-1.48 NG/DL Urine Color YELLOW Urine Clarity SL CLOUDY Urine pH 6.0 5-9 Urine Specific [place] >=1.030 1.016-1.022 Urine Protein TRACE H NEGATIVE Urine Glucose (UA) NEGATIVE NEGATIVE Urine Ketones NEGATIVE NEGATIVE Urine Nitrite NEGATIVE NEGATIVE Urine Bilirubin NEGATIVE NEGATIVE Urine Urobilinogen 1.0 < = 1.0 MG/DL Urine Leukocyte Esterase NEGATIVE NEGATIVE Urine RBC (Auto) NEGATIVE NEGATIVE Urine RBC RARE /HPF Urine WBC NONE /HPF Urine Squamous Epithelial Cells RARE /HPF Urine Crystals NONE /LPF Urine Bacteria NEGATIVE /HPF Urine Casts NONE /LPF Urine Mucus NEGATIVE /LPF Urine Culture Indicated NO My Orders Orders - SCOTT MORGAN MD Lipid Panel (03/05/21 06:00) Cbc With Automated Diff (03/04/21 13:04) Protime With Inr (03/04/21 13:04) Partial Thromboplastin Time (03/04/21 13:04) Comprehensive Metabolic Panel (03/04/21 13:04) Fibrin Degradation Products (03/04/21 13:04) Troponin I (03/04/21 13:04) Ua Culture If Indicated (03/04/21 13:04) Chest 1 View, Ap/Pa Only (03/04/21 13:04) Ekg Tracing (03/04/21 13:04) Ed Iv/Invasive Line Start (03/04/21 13:04) Ed Iv/Invasive Line Start (03/04/21 13:04) Ct Head Wo-R/O Stroke (03/04/21 13:04) O2 (03/04/21 13:04) Monitor-Rhythm Ecg Trace Only (03/04/21 13:04) Catheter(Urinary) Insert & Ass 03,15 (03/04/21 13:04) Nothing By Mouth (03/04/21 Lunch) Accucheck Stat ONCE (03/04/21 13:04) Vital Signs Stroke Patient Q15M (03/04/21 13:04) Intake & Output 06,14,22 (03/04/21 13:04) Dysphagia Screening Tool (03/04/21 13:04) Post Thrombolytic Adminstratio (03/04/21 13:04) Thyroid Stimulating Hormone (03/04/21 13:37) Free T4 (Free Thyroxine) (03/04/21 13:37) Ct Angio Head/Neck (03/04/21 14:12) Iohexol Injection (Omnipaque 350 Mg/Ml 1 (03/04/21 14:15) Received Contrast (Hold Metformin- Contr (03/04/21 14:15) Ns (Ivpb) (Sodium Chloride 0.9% Ivpb Bag (03/04/21 14:15) Medications Given in ED Current Medications Medications Dose Ordered Sig/Mimi Route Start Time Stop Time Status Last Admin Dose Admin Iohexol 100 ml ONCE ONCE IV 03/04/21 14:15 03/04/21 14:16 DC 03/04/21 14:38 100 ML Sodium Chloride 100 ml ONCE ONCE IV 03/04/21 14:15 03/04/21 14:16 DC 03/04/21 14:38 80 ML Vital Signs/I&O 03/04/21 03/04/21 03/04/21 03/04/21 13:01 13:01 13:01 13:19 Temp 35.7 35.7 Pulse 86 85 86 Resp 12 17 12 B/P (MAP) 106/69 (81) 102/76 102/69 (80) Pulse Ox 97 95 96 95 O2 Delivery Nasal Cannula Nasal Cannula Nasal Cannula O2 Flow Rate 2.00 2.00 Blood Pressure Mean: 80 FSBG Bedside Testing Finger Stick Blood Glucose: 129 Blood Glucose Action Taken: Provider notified. Progress Progress Note : Progress Note Patient was seen and examined upon arrival. Stroke activation was paged. She was taken directly to CT. A meaningful NIH could not be obtained as patient could not follow any instructions for the screening. The etiology of her condition is uncertain. In some respects the episode has features of seizure with postictal state. There are no clear focal deficits to indicate stroke. I discussed risks and benefits of thrombolytic therapy with patient's daughter which included up to a 6% risk of serious bleeding events. Patient's daughter did not want to proceed with any thrombolytic therapies. Patient's level of alertness did improve with time. Case was discussed with Dr. Melton who is agreeable to admission. Daughter stated her functional status is notably lower than her baseline at home and she is already difficult to care for at home. I reviewed CODE STATUS with patient's daughter and DNR was selected. Initial ECG Impression Date: March 04, 2021 Initial ECG Impression Time: 13:16 Initial ECG Rate: 82 Initial ECG Rhythm: Normal Sinus Initial ECG Impression: Normal Comment Normal sinus rhythm with no ST elevation or depression. No abnormal intervals or axis deviation. Diagnostic Imaging Diagonstic Imaging: CT Plain Films/CT/US/NM/MRI: head Comments CT head viewed by me and report reviewed. See report below: NAME: VIRIDIANA HARRIS MED REC#: [id number] PT STATUS: REG ER : 1945 PHYSICIAN: SCOTT MORGAN MD ADMIT DATE: 03/04/21/ER Signed Date of Exam:03/04/21 CT HEAD WO-R/O STROKE PROCEDURE: CT head wo r/o stroke. TECHNIQUE: Multiple contiguous axial images were obtained through the brain without the use of intravenous contrast. Auto Exposure Controls were utilized during the CT exam to meet ALARA standards for radiation dose reduction. INDICATION: Stroke activation with neurodeficit. Correlation is made prior head CT from 09/30/2019. FINDINGS: There is prominence of ventricles and sulci consistent with cerebral atrophy. No sulcal effacement or midline shift is identified. No acute intra-axial or extra-axial hemorrhage is detected. Cisterns are patent. Visualized paranasal sinuses are clear. IMPRESSION: Chronic and senescent changes. No acute intracranial process is detected. Dictated by: Dictated on workstation # [id number] Dict: 03/04/21 1317 Trans: 03/04/21 1606 [id number] Interpreted by: TATA CHURCH MD Electronically signed by: TATA CHURCH MD 03/04/21 1606 Diagonstic Imaging: CT Plain Films/CT/US/NM/MRI: other (Angiogram head and neck) Comments CT angiogram head and neck reviewed by me and report reviewed. See report below: NAME: VIRIDIANA HARRIS MED REC#: [id number] PT STATUS: REG ER : 1945 PHYSICIAN: SCOTT MORGAN MD ADMIT DATE: 03/04/21/ER Draft Date of Exam:03/04/21 CT ANGIO HEAD/NECK CLINICAL INDICATION: Patient with altered mental status. Stroke activation. EXAMS: 1: Head CT with IV contrast. Auto Exposure Controls were utilized during the CT exam to meet ALARA standards for radiation dose reduction. 2: CT angiogram of the head and neck performed with 100 cc of Omnipaque 350 IV contrast. Sagittal and coronal MIP reformations were created for better visualization of vascular anatomy. COMPARISON: Head CT without contrast dated 03/04/2021. FINDINGS: Head CT: There is significant motion artifact obscuring portions of the posterior fossa, brainstem, and portions of the brain and skull base. There is also portion of the midportion of the brain obscured by streak artifact. There is no abnormal IV contrast enhancement as visualized. The brain parenchymal volume appears appropriate for patient's age. There are mild patchy and confluent areas of low-attenuation white matter changes seen throughout both cerebral hemispheres and periventricular regions suspected to represent chronic small vessel ischemic disease and leukoaraiosis. There is no hydrocephalus. Basal cisterns are unremarkable. CT ANGIOGRAM: There is dense contrast within the left subclavian vein and innominate vein and superior vena cava which causes streak artifact obscuring portions of aortic arch and mediastinal structures. The bilateral subclavian arteries are patent as visualized. The proximal aspect of the left common carotid artery is tortuous and significantly obscured by streak artifact. Otherwise the remainder of the left common carotid artery is patent. The left ECA and cervical left ICA are patent. Origin of the proximal aspect of the right common carotid artery is partially obscured by streak artifact and motion artifact. The right common carotid artery is otherwise patent as visualized. The right ECA and cervical right ICA is patent as visualized. There is motion artifact which obscures the C1-C2 level and vessels at this level. The bilateral petrous, cavernous, and supraclinoid ICA are patent. Right cervical vertebral artery is partially obscured at C1-C2 level due to motion artifact. Otherwise the bilateral cervical vertebral arteries are patent. Dominant left cervical vertebral artery is seen. The bilateral PICA are patent. The right cervical intradural vertebral artery ends in PICA. The intradural left vertebral artery, basilar artery, bilateral superior cerebellar arteries, and bilateral HEAD BANQUET WAITRESS are patent. There is motion artifact limiting evaluation of the intracranial [place] vessels. Otherwise, the bilateral ACAs and their distal branches and bilateral MCAs and their distal branches are patent, as visualized. There is partial contrast opacification of the bilateral transverse dural venous sinuses, sigmoid dural venous sinuses, bilateral IJ. Otherwise, the dural venous sinuses are patent as visualized. The neck soft tissue structures show no significant abnormality. Visualized upper lung pena show no significant abnormality. There are cervical spine vertebral body spurs and facet arthropathy. There is grade 1 anterolisthesis of C4 on C5. There is [id number] loss of disk space height at the C5-C6 and C6-C7 levels with diffuse disk bulge and uncinate spurs. IMPRESSION: 1: There is significant motion artifact which limits evaluation of the intracranial structures, m[place] vascular structures and neck arterial vascular structures. 2: There is no definite CT evidence of interval acute cerebral infarction, intracranial hemorrhage, or mass seen. Given the diffuse low attenuation changes throughout the brain parenchyma which can obscure more subtle findings, if there is clinical concern for acute cerebral infarction, MRI of the brain would better evaluate. 3: There are low-attenuation white matter changes involving both cerebral hemispheres which may be related to chronic small vessel ischemic disease and leukoaraiosis. 4: CT angiogram of the [place] and neck shows no significant stenosis, vascular malformation, or aneurysm, as visualized. There is no large vessel occlusion seen. Results of this report was discussed with Vasyl Duque APRN via the telephone on 03/04/2021 at 1509 hours. Dictated on workstation # [id number] Dict: 03/04/21 1447 Trans: 03/04/21 [facility] [id number] Interpreted by: FAUSTINA BARNES MD Diagonstic Imaging: Xray Plain Films/CT/US/NM/MRI: chest Comments NAME: VIRIDIANA HARRIS [facility] REC#: [id number] PT STATUS: REG ER : 1945 PHYSICIAN: SCOTT MORGAN MD ADMIT DATE: 03/04/21/ER Draft Date of Exam:03/04/21 CHEST 1 VIEW, AP/PA ONLY INDICATION: Weakness. Lethargy. COMPARISON: 11/10/2019 FINDINGS: Single frontal view of the chest demonstrates normal heart size and pulmonary vascularity. The lungs show low inspiratory volumes with minimal patchy bibasilar atelectasis. No large pleural effusion or pneumothorax is seen. The visualized osseous structures show no acute abnormalities. IMPRESSION: 1. No acute cardiopulmonary process. Dictated on workstation # [id number] Dict: 03/04/21 1348 Trans: 03/04/21 1351 [facility] [id number] Interpreted by: GER BOLES MD Departure Communication (Admissions) Time/Spoke to Admitting Phy: 15:45 Dr. Justo Melton Impression Primary Impression: Altered mental status Qualified Codes: R41.82 - Altered mental status, unspecified Additional Impression: Seizure-like activity Disposition: ADMITTED INPATIENT Condition: Stable Admissions Decision to Admit Reason: Admit from ER (General) Decision to Admit/Date: March 04, 2021 Time/Decision to Admit Time: 15:40 Departure-Patient Inst. Referrals: JUSTO MELTON MD (PCP/Family) Primary Care Physician SCOTT MORGAN MD March 04, 2021 15:57
[2021-03-04] MEDS ORDERED: LACTATED RINGERS 1,000 ML IV ONE (16:36)
[2021-03-04 16:50] VITALS: BP 161/92
[2021-03-04] MEDS ORDERED: ONDANSETRON 4 MG/2 ML (SDV) Z0FRAN IVP PRN (17:15)
[2021-03-04] MEDS: LACTATED RINGERS 1,000 ML IV SCH (17:15)
[2021-03-04] MEDS ORDERED: LORazepam INJ 2 MG/ML (ATIVAN) VIAL IVP PRN (17:15)
[2021-03-04 20:13] VITALS: BP 150/86
--- NOTE | 2021-03-04 23:05 | History & Physical ---
History of Present Illness History of Present Illness Reason for visit/HPI 75 yo with progressive dementia admitted for observation for altered mental status after a possible seizure. She woke up like most mornings. Daughter gave her medication and fed her. But she was helping her to the bathroom and screamed out then her left arm went up in the air, extended out and her whole body went stiff. This was around the noon hour. Date of Admission March 04, 2021 at 15:57 Date Seen by a Provider: March 04, 2021 Time Seen by a Provider: 19:05 I consulted on this patient on 03/04/21 23:00 Attending Physician Justo Melton MD Admitting Physician Justo Melton MD Consult Allergies and Home Medications Allergies Coded Allergies: morphine (Verified Adverse Reaction, Severe, HALLUCINATIONS, 03/04/21) Home Medications Fentanyl 1 Each Patch.td72, 50 MCG TD Q72H, (Reported) Last Action: Reviewed Levothyroxine Sodium 112 Mcg Tablet, 112 MCG PO DAILY, (Reported) Last Action: Reviewed Nitrofurantoin Macrocrystal 100 Mg Capsule, 100 MG PO DAILY, (Reported) Last Action: Reviewed Patient Home Medication List Home Medication List Reviewed: Yes Past [id number]-Yzcddc Hx Patient Social History Marrital Status: Smoking Status: Former Smoker Former Smoker, Quit: Sep 30, 1981 2nd Hand Smoke Exposure: No Recent Hopitalizations: No Have you traveled recently?: No Alcohol Use?: No Pt feels they are or have been: Unable to obtain Immunizations Up To Date Tetanus Booster (TDap): Less than 5yrs Pediatric: No Date of Pneumonia Vaccine: Jul 16, 2019 Date of Influenza Vaccine: Jul 16, 2019 Seasonal Allergies Seasonal Allergies: No Surgeries Yes (REPAIR OF URETHRAL PROLAPSE 07/2019;L BREAST LUMPECTOMY/SENTINAL NODE BX ) Bladder Surgery, Breast, Gallbladder, Hysterectomy, Joint Replacement, Mariann mpectomy, Orthopedic, Thyroidectomy Respiratory No Cardiovascular Yes Hypertension Neurological Yes (DEMENTIA WITH "SUNDOWNER'S" ) Dementia Reproductive System Hx Reproductive Disorders: Yes Sexually Transmitted Disease: No HIV/AIDS: No 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, 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 Genitourinary Yes (URETHRAL PROLAPSE REPAIR 07/2019) UTI-Chronic Gastrointestinal Yes Gastroesophageal Reflux, Chronic Constipation Musculoskeletal Yes (LEFT HIP REPLACEMENT FOR ARTHRITIS 2013; L2 VERTEBRAL FX 09/2019) Arthritis, Fractures Endocrine History of Endocrine Disorders: Yes (MULTINODULAR GOITER--S/P THYROIDECTOMY 12/2016) Endocrine Disorders: Hypothyroidsim HEENT History of HEENT Disorders: Yes (DENTURES) Loss of Vision: Denies Hearing Impairment: Denies Cancer Yes (LEFT BREAST CANCER DX 2009--S/P LUMPECTOMY AND SENTINEL NODE BIOPSY) Breast Did You Recieve Any Treatments: Yes Type of Treatment: Chemotherapy, Radiation, Surgical Intervention Psychosocial History of Psychiatric Problem: No Integumentary History of Skin or Integumenta: No Blood Transfusions History of Blood Disorders: No Adverse Reaction to a Blood Tr: No (N/A) Family Medical History Significant Family History: Diabetes, Stroke Other Significan Family Hx: PSH: -LEFT BREAST LUMPECTOMY WITH SENTINAL LYMPH NODE BIOPSY 2009 -PORT PLACEMENT 2009 -THROIDECTOMY 12/2016 -LEFT HIP REPLACEMENT 2013 -URETHRAL PROLAPSE REPAIR 07/2019 Family Hx: Family history: Arthritis 03 FATHER 03 MOTHER 09 BROTHER 09 SISTER No Family History of: Abdominal aortic aneurysm Alcoholism Cancer Family history: Alzheimer's disease Family history: Asthma Family history: Breast disease Family history: Cardiovascular disease Family history: Diabetes mellitus Family history: Gastrointestinal disease Family history: Hypertension Family history: Thyroid disorder Hereditary disease History of - respiratory disease Kidney disease Myocardial infarction Parkinson's disease Prostate cancer Psychotic disorder Seizure disorder Stroke Review of Systems Review of Systems ROS Unable to Obtain: due to dementia Physical Exam Vital Signs Vital Signs - First Documented Capillary Refill : Less Than 3 Seconds Vital Signs Date Time Temp Pulse Resp B/P (MAP) Pulse Ox O2 Delivery O2 Flow Rate FiO2 03/05/21 11:55 36.6 68 20 127/74 (91) 100 Nasal Cannula 2.00 03/05/21 08:00 98 Nasal Cannula 2.00 03/05/21 07:05 36.7 78 20 148/76 (100) 98 Nasal Cannula 2.00 03/05/21 04:36 36.5 69 18 176/71 (106) 98 Nasal Cannula 2.00 03/05/21 01:38 Nasal Cannula 2.00 03/05/21 00:23 36.0 69 18 149/85 (106) 96 Nasal Cannula 2.00 03/04/21 20:13 36.0 73 18 150/86 (107) 98 Nasal Cannula 2.00 03/04/21 19:35 Nasal Cannula 2.00 03/04/21 18:02 Nasal Cannula 2.00 03/04/21 16:50 36.2 85 20 161/92 (115) 100 Room Air 03/04/21 16:40 36.4 76 16 137/83 98 Nasal Cannula 2.00 I & O 03/05/21 07:00 Intake Total 2000 ml Output Total 750 ml Balance 1250 ml Height, Weight, BMI Height: 5'3.00" Weight: 145lbs. 0.0oz. 65.464759im; 22.50 BMI Method:Stated General Appearance: No Apparent Distress HEENT: PERRL/EOMI Neck: Non Tender, Supple Respiratory: Chest Non Tender, Lungs Clear, Normal Breath Sounds, No Accessory Muscle Use, No Respiratory Distress Cardiovascular: Regular Rate, Rhythm, No Edema Gastrointestinal: Non Tender, Soft Rectal: Deferred Back: No CVA Tenderness Extremity: Non Tender, No Calf Tenderness Neurologic/Psychiatric: Alert, Disoriented Skin: Warm/Dry Assessment/Plan Assessment/Plan Admission Dx altered mental status possible seizure Admission Status: Observation Assessment and Plan admitted observation -monitor overnight- if seizure like activity occurs again- lorazepam ordered. will order procalcitonin level. -resume levothyroxine -plan to discharge to home if she is near baseline in the AM. Problems: (1) Alzheimer's dementia with behavioral disturbance Assessment & Plan: no longer on any medication for behavioral disturbance. She has a fentanyl patch and it has helped with her behavior as it is likely she is having pain but unable to communicate. (2) Hypertension Qualifiers: Qualified Codes: I10 - Essential (primary) hypertension (3) Hypothyroidism Qualifiers: Qualified Codes: E03.9 - Hypothyroidism, unspecified (4) Seizure-like activity (5) Altered mental status Qualifiers: Qualified Codes: R41.82 - Altered mental status, unspecified JUSTO MELTON MD March 04, 2021 23:05
[2021-03-05 00:23] VITALS: BP 149/85
[2021-03-05 04:36] VITALS: BP 176/71
[2021-03-05 04:58] LABS: CHLORIDE 103 MMOL/L (98-107); POTASSIUM 3.8 MMOL/L (3.6-5.0); SODIUM 140 MMOL/L (135-145)
[2021-03-05 05:00] LABS: GLUCOSE 98 MG/DL (70-105); TRIGLYCERIDES 112 MG/DL (<150); VLDL CHOLESTEROL 22 MG/DL (5-40)
[2021-03-05 05:01] LABS: CARBON DIOXIDE 27 MMOL/L (21-32)
[2021-03-05 05:04] LABS: CREATININE SERUM 0.67 MG/DL (0.60-1.30); GFR ESTIMATED > 60
[2021-03-05 05:05] LABS: BUN/CREATININE RATIO 13; CHOLESTEROL 206 MG/DL (< 200)
[2021-03-05 05:06] LABS: HDL CHOLESTEROL 34 MG/DL (40-60)
[2021-03-05] MEDS: LACTATED RINGERS 1,000 ML IV SCH (06:30)
[2021-03-05 07:05] VITALS: BP 148/76
[2021-03-05] MEDS ORDERED: LEVOTHYROXINE 100 MCG (LEVOTHROID) TAB PO SCH (09:00)
[2021-03-05] MEDS ORDERED: fentaNYL PATCH 25 MCG (DURAGESIC) TD SCH ×2 (09:00→14:30)
[2021-03-05] MEDS ORDERED: lisINopril 20 MG (PRINIVIL) TABLET PO SCH (09:00)
--- NOTE | 2021-03-05 09:22 | ST Dysphagia Evaluation ---
Speech Evaluation-General Medical Diagnosis AMS, possible seizure, Alzheimer's with behavioral disturbance Onset Date: March 04, 2021 Therapy Diagnosis Therapy Diagnosis: Oropharyngeal Dysphagia Precautions Precautions: Aspiration Precautions/Isolations: Aspiration, Fall Prevention, Standard Precautions Referral Referring Physician: Dr. Tatum Medical History Pertinent Medical History: Dementia, GERD, HTN, Hypothroidism Reviewed History: Yes Social History Current Living Status: Children Speech PLF/Current-Dysphagia Prior Level of Function Patient is an advanced Alzheimer's patient who lives at home with her daughter. She is assisted with all her daily needs due to dementia. Subjective Patient was cooperative with the Bedside Dysphagia Evaluation Cognitive Status Patient Orientation: Person, Confused, Mumbles Patient required tactile and verbal redirection to leave her IV alone. Oral Motor Skills Dentition: Edentalous Ability to Follow Directions: Fair Oral Expression Ability: Moderate Impairment Voice Voice Phonatory-Based Quality: Weak Voice Pitch: Normal Voice Loudness: Moderately Soft/Quiet Face Facial Symmetry: Symmetrical Oral-Facial Assessment Oral-Facial Dentition: Normal Labial Seal Description: Normal Lingual Protrusion: Normal Lingual ROM: Normal Lingual Strength: Normal Pharynx Velopharyngeal Move.: Normal Volitional Dry Swallow: Yes Dysphagia Evaluation Consistencies Presented: Thin Liquid, Mechanical Soft, Pureed Oral phase is within normal range of function for presented consistencies. Pharyngeal phase is within normal range of function for presented consistencies. Dietary Recommendations: Mechanical Soft Liquid Recommendations: Thin Swallowing Precautions: Alternate Liquids/Solids, Double Swallow, Decreased Bolus 1/2 Tsp, Liquids from Straw, Liquids from Spoon, Oral Supervision Caregiver, Small Bites and Sips, Sitting Upright 90 Degrees, Sitting 90 Degrees 30 Post Intake Dysphagia Evaluation Summary Patient is a demented 75 y/o female who was admitted to the hospital due to AMS and possible seizure. Patient lives in the home with her daughter who assists he r with all daily needs. The patient was given 1/2 tsp of thin x2 and small sips via straw x2 without s/s of aspiration. The patient was given 1/2 tsp of puree and mechanical soft without s/s of aspiration. The daughter reports the patient eats everything at home but dues require the food to be chopped up. Patient is recommended for Dysphagia II with thin liquids. This information was presented to nursing and written on the white board in his room. Barriers to Learning Patient's medical status Speech-Plan Patient/Family Goals Patient/Family Goals: Patient will discharge back to her home where she lives with her daughter. Treatment Plan Speech Therapy Treatment Plan: Discontinue ST Treatment Duration: March 05, 2021 Frequency: 1 time per week Estimated Hrs Per Day: .25 hour per day Rehab Potential: Fair Barriers to Learning: Patient's medical status Pt/Family Agrees to Plan: Yes Safety Risks/Education Teaching Recipient: Patient, Family Teaching Methods: Discussion Response to Teaching: Verbalize Understanding, Reinforcement Needed Education Topics Provided: Safety of oral intake, diet level Time Speech Therapy Time In: 08:05 Speech Therapy Time Out: 08:20 Total Billed Time: 15 Billed Treatment Time 1, MANE DYST KAMERON Pan March 05, 2021 09:22
[2021-03-05] MEDS ORDERED: FENT1PAT58 TD (11:07)
[2021-03-05] MEDS ORDERED: NITR100C PO (11:07)
[2021-03-05] MEDS ORDERED: LEVO112T55 PO (11:07)
[2021-03-05 11:55] VITALS: BP 127/74
--- NOTE | 2021-03-05 14:21 | Discharge Summary ---
Discharge Summary Hospital Course Was the Problem List Reviewed?: Yes Problems/Dx: (1) Alzheimer's dementia with behavioral disturbance Status: Chronic (2) Hypertension Status: Chronic Qualifiers: Qualified Codes: I10 - Essential (primary) hypertension (3) Hypothyroidism Status: Chronic Qualifiers: Qualified Codes: E03.9 - Hypothyroidism, unspecified (4) Seizure-like activity Status: Acute (5) Altered mental status Status: Acute Qualifiers: Qualified Codes: R41.82 - Altered mental status, unspecified Hospital Course Date of Admission: March 04, 2021 at 15:57 Admission Diagnosis : (1) Alzheimer's dementia with behavioral disturbance (2) Hypertension (3) Hypothyroidism (4) Seizure-like activity (5) Altered mental status Family Physician/Provider: Justo Melton MD Date of Discharge: 03/05/21 Discharge Diagnosis: (1) Alzheimer's dementia with behavioral disturbance (2) Hypertension (3) Hypothyroidism (4) Seizure-like activity (5) Altered mental status Hospital Course: 75 yo with progressive dementia admitted for observation for altered mental status after a possible seizure. She woke up like most mornings. Daughter gave her medication and fed her. But she was helping her to the bathroom and screamed out then her left arm went up in the air, extended out and her whole body went stiff. This was around the noon hour. No head trauma- CT head was negative for stroke/bleed. Patient was monitored overnight and no other events occurred. She was deemed stable for discharge to home. Return to ER if new issues occur. Labs and Pending Lab Test: Laboratory Tests 03/04/21 14:17: Urine Color YELLOW, Urine Clarity SL CLOUDY, Urine pH 6.0, Urine Specific [place] >=1.030, Urine Protein TRACEH, Urine Glucose (UA) NEGATIVE, Urine Ketones NEGATIVE, Urine Nitrite NEGATIVE, Urine Bilirubin NEGATIVE, Urine Urobilinogen 1.0, Urine Leukocyte Esterase NEGATIVE, Urine RBC (Auto) NEGATIVE, Urine RBC RARE, Urine WBC NONE, Urine Squamous Epithelial Cells RARE, Urine Crystals NONE, Urine Bacteria NEGATIVE, Urine Casts NONE, Urine Mucus NEGATIVE, Urine Culture Indicated NO 03/05/21 04:35: Sodium Level 140, Potassium Level 3.8, Chloride Level 103, Carbon Dioxide Level 27, Anion Gap 10, Blood Urea Nitrogen 9, Creatinine 0.67, Estimat Glomerular Filtration Rate > 60, BUN/Creatinine Ratio 13, Glucose Level 98, Calcium Level 9.0, Triglycerides Level 112, Cholesterol Level 206H, LDL Cholesterol Direct 170H, VLDL Cholesterol 22, HDL Cholesterol 34L Home Meds Active Reported Nitrofurantoin (Nitrofurantoin Macrocrystal) 100 Mg Capsule 100 Mg PO DAILY Levothyroxine Sodium 112 Mcg Tablet 112 Mcg PO DAILY Duragesic Patch 50MCG (Fentanyl) 1 Each Patch.td72 50 Mcg TD Q72H Assessment/Pt Instructions Return home. Dementia is likely progressing given her requirement of assistance with eating and decreased ambulatory ability. She is DNR. Continue with current pain medication regimen and UTI prophylaxis regimen as well as levothyroxine for hypothyroidism. Follow up in 2 weeks. Discharge Planning: >30 minutes discharge planning Discharge Instructions Discharge Diet: Other Diet Activity as Tolerated: Yes Discharge Physical Examination Vital Signs Vital Signs Date Time Temp Pulse Resp B/P (MAP) Pulse Ox O2 Delivery O2 Flow Rate FiO2 03/05/21 11:55 36.6 68 20 127/74 (91) 100 Nasal Cannula 2.00 General Appearance: No Apparent Distress HEENT: PERRL/EOMI Respiratory: Chest Non Tender, Lungs Clear Cardiovascular: Regular Rate, Rhythm Gastrointestinal: Non Tender, Soft Extremity: Non Tender Skin: Warm/Dry Neurologic/Psychiatric: Alert Allergies: Coded Allergies: morphine (Verified Adverse Reaction, Severe, HALLUCINATIONS, 03/04/21) Discharge Summary Date of Admission March 04, 2021 at 15:57 Date of Discharge Discharge Diagnosis (1) Alzheimer's dementia with behavioral disturbance Status: Chronic Assessment & Plan: no longer on any medication for behavioral disturbance. She has a fentanyl patch and it has helped with her behavior as it is likely she is having pain but unable to communicate. (2) Hypertension Status: Chronic Qualifiers: Qualified Codes: I10 - Essential (primary) hypertension (3) Hypothyroidism Status: Chronic Qualifiers: Qualified Codes: E03.9 - Hypothyroidism, unspecified (4) Seizure-like activity Status: Acute (5) Altered mental status Status: Acute Qualifiers: Qualified Codes: R41.82 - Altered mental status, unspecified JUSOT MELTON MD March 05, 2021 14:21
[2021-03-05 14:45] VITALS: BP 127/74
[2021-03-06] MEDS ORDERED: NITROFURANTOIN 100 MG (MACROBID) CAPSULE PO SCH (09:00)
[2021-03-06] MEDS ORDERED: LEVOTHYROXINE 112 MCG (LEVOTHROID) TAB PO SCH (09:00)
[2021-03-08] MEDS ORDERED: fentaNYL PATCH 25 MCG (DURAGESIC) TD SCH (09:00)
[2021-03-08] MEDS ORDERED: PATCH REMOVAL TP SCH (09:00)
== END 2021-03-05 14:09 | disposition home or self-care (01) ==
LOC: EDUNIT# 13:01 → ER 13:03 → 4TH 15:57 → UNDOADMOB 15:57 → 4TH 16:50 → UNDODISOB 03-05 14:50
PROVIDERS: ADMIT Family Medicine; ATTEND Family Medicine
DX: G30.8 Other Alzheimer's disease (principal); F02.81 Dementia in other diseases classified elsewhere, unspecified severity, with behavioral disturbance; R41.82 Altered mental status, unspecified; I10 Essential (primary) hypertension; N39.0 Urinary tract infection, site not specified; K21.9 Gastro-esophageal reflux disease without esophagitis; K59.09 Other constipation; M19.90 Unspecified osteoarthritis, unspecified site; E03.9 Hypothyroidism, unspecified; Z92.21 Personal history of antineoplastic chemotherapy; Z92.3 Personal history of irradiation; Z88.5 Allergy status to narcotic agent; Z79.890 Hormone replacement therapy; Z79.899 Other long term (current) drug therapy; Z90.710 Acquired absence of both cervix and uterus; Z90.89 Acquired absence of other organs
CPT/HCPCS: 51702; 70450; 70496; 70498; 71045; 80048; 80053; 80061; 81000; 84439; 84443; 84484; 85025; 85379; 85610; 85730; 92526; 92610; 93005; 93041; 99284; G0378; 36415

== ENCOUNTER → 2022-01-04 | Outpatient (CLI) | payer MEDICARE ==
[~2022-01-04] MED LIST changes: -DOXY100C2 PO; +DOXY100C5 PO; +FENT1PAT58 TD; +LEVO112T55 PO; +NITR100C PO; -QUET50TA22 PO; +QUET50TA23 PO; -SULF1TAB35 PO; +SULF1TAB38 PO
[2022-01-04 15:08] LABS: BILIRUBIN,URINE NEGATIVE (NEGATIVE); CLARITY,URINE CLEAR; COLOR,URINE YELLOW; GLUCOSE, URINE (UA) NEGATIVE (NEGATIVE); KETONES,URINE NEGATIVE (NEGATIVE); LEUKOCYTE ESTERASE ,URINE TRACE (NEGATIVE); NITRITE,URINE NEGATIVE (NEGATIVE); PH,URINE 5.5 (5-9); PROTEIN,URINE NEGATIVE (NEGATIVE)
[2022-01-04 15:17] LABS: AMORPHOUS SEDIMENT,UR RARE AMOR URATES /LPF; BACTERIA,URINE TRACE /HPF
== END ==
LOC: LABNPT 15:02
DX: R41.0 Disorientation, unspecified (principal); R46.89 Other symptoms and signs involving appearance and behavior
CPT/HCPCS: 81000